=== PATIENT | male | born 1970 | race African-American/Black ===

== ENCOUNTER 2017-01-14 11:09 | Inpatient (IN) | payer OTHER ==
[2017-01-14 12:18] VITALS: BMI 25.7
--- NOTE | 2017-01-14 14:52 | HP ---
CIWA Score - CIWA Score Nausea/Vomitin Muscle Tremors: 3 Anxiety: 3 Agitation: 3 Paroxysmal Sweats: 3 Orientation: 0-Oriented Tacttile Disturbances: 2-Mild Itch/Numbness/Burn Auditory Disturbances: 2-Mild Harshness/Frighten Visual Disturbances: 2-Mild Sensitivity Headache: 2-Mild CIWA-Ar Total Score: 23 Admission ROS BHS - HPI Chief Complaint: i need help to stop drinking alcohol and cocaine Allergies/Adverse Reactions: Allergies Allergy/AdvReac Type Severity Reaction Status Date / Time No Known Allergies Allergy Verified 01/14/17 14:39 History of Present Illness: this 46 years old male with alcohol and cocaine dependence,withdrawal symptom, last detox and rehab [facility] 06/04 hiv since 2001 nicotine dependence schizoaffective disorder longest period of sobriety Exam Limitations: No Limitations - Ebola screening Have you traveled outside of the country in the last 21 days: No Have you had contact with anyone from an Ebola affected area: No Have you been sick,other than usual withdrawal symptoms: No Do you have a fever: No - Review of Systems Constitutional: Chills, Diaphoresis, Loss of Appetite, Malaise, Night Sweats, Changes in sleep, Unintentional Wgt. Loss EENT: reports: Tearing, Nose Congestion Respiratory: reports: No Symptoms reported Cardiac: reports: Palpitations GI: reports: Diarrhea, Nausea, Vomiting, Abdominal cramping : reports: No Symptoms Reported Musculoskeletal: reports: Back Pain, Joint Pain, Muscle Pain, Joint Stiffness Integumentary: reports: Dryness Neuro: reports: Headache, Tremors Endocrine: reports: No Symptoms Reported Hematology: reports: No Symptoms Reported, Other (hiv) Psychiatric: reports: other (schizoaffective disorder) Other Systems: Reviewed and Negative Patient History - Patient Medical History Hx Anemia: No Hx Asthma: No Hx Chronic Obstructive Pulmonary Disease (COPD): No Hx Cancer: No Hx Cardiac Disorders: No Hx Congestive Heart Failure: No Hx Hypertension: No Hx Hypercholesterolemia: No Hx Pacemaker: No HX Cerebrovascular Accident: No Hx Seizures: No Hx Dementia: No Hx Diabetes: No Hx Gastrointestinal Disorders: No Hx Liver Disease: No Hx Genitourinary Disorders: No Hx Sexually Transmitted Disorders: No Hx Renal Disease (ESRD): No Hx Thyroid Disease: No Hx Human Immunodeficiency Virus (HIV): Yes (since 2001) Hx Hepatitis C: No Hx Depression: No Hx Suicide Attempt: No Hx Bipolar Disorder: No Hx Schizophrenia: Yes Other Medical History: no suicidal,no homicidal - Patient Surgical History Past Surgical History: No Hx Neurologic Surgery: No Hx Cataract Extraction: No Hx Cardiac Surgery: No Hx Lung Surgery: No Hx Breast Surgery: No Hx Breast Biopsy: No Hx Abdominal Surgery: No Hx Appendectomy: No Hx Cholecystectomy: No Hx Genitourinary Surgery: No Hx Section: No Hx Orthopedic Surgery: No Hx Hysterectomy: No Anesthesia Reaction: No - PPD History Previous Implant?: Yes Documented Results: Negative w/proof Implanted On Prior [facility] Admission?: Yes Date: 03/05/16 Results: 0 mm PPD to be Administered?: No - Smoking Cessation Smoking history: Current every day smoker Have you smoked in the past 12 months: Yes Aproximately how many cigarettes per day: 20 Cigars Per Day: 0 Hx Chewing Tobacco Use: No Initiated information on smoking cessation: Yes 'Breaking Loose' booklet given: 01/14/17 - Substance & Tx. History Hx Alcohol Use: Yes Hx Substance Use: Yes Substance Use Type: Alcohol, Cocaine Hx Substance Use Treatment: Yes ([facility] in 06/04) - Substances Abused Alcohol Route: Oral Frequency: Daily Amount used: 10 40 OZ BEERS Age of first use: 36 Date of Last Use: 01/13/17 Crack Route: Smoking Frequency: 1-3 times last 30 days Amount used: $10-20 Age of first use: 36 Date of Last Use: 01/12/17 Family Disease History - Family Disease History Family Disease History: Diabetes: Grandparent (GM-), CA: Grandparent, Other: Father (heroin ), Mother (heroin ) Admission Physical Exam S - Vital Signs Vital Signs: Vital Signs - 24 hr 01/14/17 12:16 Temperature 98.8 F Pulse Rate 104 H Respiratory 18 Rate Blood Pressure 122/74 - Physical General Appearance: Yes: Moderate Distress, Tremorous, Irritable, Sweating, Anxious HEENTM: Yes: Hearing grossly Normal, Normal ENT Inspection, [place], Pharynx Normal Respiratory: Yes: Lungs Clear, Normal Breath Sounds, No Respiratory Distress Neck: Yes: Within Normal Limits, Supple, Trachea in good position Breast: Yes: Within Normal Limits Cardiology: Yes: Tachycardia Abdominal: Yes: Within Normal Limits, Normal Bowel Sounds, Non Tender, Flat, Soft Genitourinary: Yes: Within Normal Limits Back: Yes: Muscle Spasm Musculoskeletal: Yes: Back pain, Joint Stiffness, Muscle Pain Extremities: Yes: Tremors Neurological: Yes: real time operator II-XII NML intact, Alert, Motor Strength 5/5 Integumentary: Yes: Dry Lymphatic: Yes: Within Normal Limits - Diagnostic (1) Weight decreased Current Visit: No Status: Active (2) Alcohol dependence with uncomplicated withdrawal Current Visit: No Status: Acute (3) Cocaine dependence, uncomplicated Current Visit: No Status: Acute (4) Human immunodeficiency virus infection Current Visit: No Status: Chronic (5) Nicotine dependence Current Visit: No Status: Chronic Qualifiers: Nicotine product type: cigarettes Substance use status: uncomplicated Qualified Code(s): F17.210 - Nicotine dependence, cigarettes, uncomplicated (6) Paranoid schizophrenia Current Visit: No Status: Chronic (7) Schizophrenia Current Visit: No Status: Chronic (8) Posttraumatic stress disorder Current Visit: No Status: Suspected Cleared for Admission [facility] - Detox or Rehab [facility] Level of Care: Medically Managed Detox Regimen/Protocol: Librium [facility] Breath Alcohol Content Breath Alcohol Content: 0 Urine Drug Screen - Results Drug Screen Negative: No Urine Drug Screen Results: IAIN-Cocaine, TCA-Tricyclic Antidepress
[2017-01-14] MEDS ORDERED: MAGNESIUM CITRATE 300 ML BOTTLE PO PRN (15:19)
[2017-01-14] MEDS ORDERED: MAG HYDROX/AL HYDROX/SIMETH 30 ML UNIT-DOSE CUP PO PRN (15:19)
[2017-01-14] MEDS ORDERED: IBUPROFEN 400 MG TABLET (FP) PO PRN (15:19)
[2017-01-14] MEDS ORDERED: MAGNESIUM HYDROX 2400MG/30ML ORAL SUSPENSION 30 ML CUP PO PRN (15:19)
[2017-01-14] MEDS ORDERED: diphenhydrAMINE HCL 50 MG CAPSULE PO PRN (15:19)
[2017-01-14] MEDS ORDERED: guaiFENesin/D-METHORPHAN HB 10 ML UNIT-DOSE CUPS PO PRN (15:19)
[2017-01-14] MEDS ORDERED: MENTHOL/PHENOL 1 EACH UD MM PRN (15:19)
[2017-01-14] MEDS ORDERED: chlordiazePOXIDE HCL 25 MG CAPSULE PO PRN (15:19)
[2017-01-14] MEDS ORDERED: hydrOXYzine PAMOATE 50 MG CAPSULE (FP) PO PRN (15:19)
[2017-01-14] MEDS ORDERED: P-EPHED 60MG/TRIPROLIDI 2.5MG TABLET PO PRN (15:19)
[2017-01-14] MEDS ORDERED: LOPERAMIDE HCL 2 MG CAPSULE PO PRN (15:19)
[2017-01-14] MEDS ORDERED: ACETAMINOPHEN 325 MG TABLET (FP) PO PRN (15:19)
[2017-01-14] MEDS ORDERED: chlordiazePOXIDE HCL 25 MG CAPSULE PO ONE (16:49)
[2017-01-14] MEDS: chlordiazePOXIDE HCL 25 MG CAPSULE PO SCH ×2 (17:55→22:55)
[2017-01-14] MEDS: NICOTINE POLACRILEX 4 MG GUM BUC PRN (17:56)
[2017-01-14] MEDS: THIAMINE HCL 100 MG TABLET (FP) PO SCH (22:55)
[2017-01-14 23:23] LABS: URINE APPEARANCE CLEAR; URINE BILIRUBIN NEGATIVE (NEGATIVE); URINE BLOOD NEGATIVE (NEGATIVE); URINE COLOR LTYELLOW; URINE GLUCOSE (UA) NEGATIVE (NEGATIVE); URINE KETONE NEGATIVE (NEGATIVE); URINE LEUK ESTERASE NEGATIVE (NEGATIVE); URINE NITRITE NEGATIVE (NEGATIVE); URINE PROTEIN NEGATIVE (NEGATIVE); URINE UROBILINOGEN NEGATIVE E.U./dl (0.2-1.0)
[2017-01-15] MEDS: chlordiazePOXIDE HCL 25 MG CAPSULE PO SCH ×4 (05:50→22:41)
[2017-01-15] MEDS: PRENATAL VITAMINS W/ FOLIC ACID TABLET (FP) PO SCH (10:44)
[2017-01-15] MEDS: NICOTINE POLACRILEX 4 MG GUM BUC PRN ×4 (10:46→20:53)
--- NOTE | 2017-01-15 10:47 | PN ---
S CIWA - CIWA Score Nausea/Vomitin Muscle Tremors: 3 Anxiety: 3 Agitation: 2 Paroxysmal Sweats: 1-Minimal Palms Moist Orientation: 0-Oriented Tacttile Disturbances: 1-Very Mild Itch/Numbness Auditory Disturbances: 1-Very Mild Visual Disturbances: 1-Very Mild Sensitivity Headache: 2-Mild CIWA-Ar Total Score: 17 BHS Progress Note (SOAP) Subjective: ALERT,IRRITABLE,ANXIOUS,INTERRUPTED SLEEP,PAIN IN THE BODY Objective: 01/15/17 10:46 Vital Signs Temperature 98.4 F 01/15/17 10:31 Pulse Rate 85 01/15/17 10:31 Respiratory Rate 16 01/15/17 10:31 Blood Pressure 135/82 01/15/17 10:31 O2 Sat by Pulse Oximetry (%) EKG NSR,NORMAL ECG Laboratory Last Values Urine Color Ltyellow 01/14/17 21:26 Urine Appearance Clear 01/14/17 21:26 Urine pH 5.0 (5.0-8.0) 01/14/17 21:26 Ur Specific [place] 1.011 (1.001-1.035) 01/14/17 21:26 Urine Protein Negative (NEGATIVE) 01/14/17 21:26 Urine Glucose (UA) Negative (NEGATIVE) 01/14/17 21:26 Urine Ketones Negative (NEGATIVE) 01/14/17 21:26 Urine Blood Negative (NEGATIVE) 01/14/17 21:26 Urine Nitrite Negative (NEGATIVE) 01/14/17 21:26 Urine Bilirubin Negative (NEGATIVE) 01/14/17 21:26 Urine Urobilinogen Negative E.U./dl (0.2-1.0) 01/14/17 21:26 Ur Leukocyte Esterase Negative (NEGATIVE) 01/14/17 21:26 LABS PENDING Assessment: 01/15/17 10:47 WITHDRAWAL SYMPTOM Plan: CONTINUE DETOX
[2017-01-15 11:10] LABS: MCH 29.8 pg (25.7-33.7); MCHC 32.5 g/dl (32.0-35.9); MEAN CELL VOLUME 91.7 fl (80-96); MEAN PLT VOLUME 8.9 fl (7.5-11.1); PLATELET COUNT 239 K/MM3 (134-434); RDW 13.4 % (11.9-15.9); WHITE BLOOD COUNT 4.6 K/mm3 (4.0-10.0)
[2017-01-15 11:15] LABS: ALBUMIN 3.6 g/dl (3.4-5.0); ANION GAP 10 (8-16); BILIRUBIN,TOTAL 0.6 mg/dL (0.2-1.0); CALCIUM 8.9 mg/dL (8.5-10.1); CO2 26 mmol/L (21-32); COCKROFT - GAULT 97.47; CREATININE 1.1 mg/dL (0.7-1.3); GLUCOSE,RANDOM 149 mg/dL (74-106); SGOT/AST 43 U/L (15-37); SGPT/ALT 35 U/L (12-78); TOT PROT 7.9 g/dl (6.4-8.2)
[2017-01-15 11:16] LABS: ALK PHOS 87 U/L (45-117)
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
[2017-01-15] MEDS: QUEtiapine FUMARATE 300 MG TABLET PO SCH ×2 (14:08→22:42)
[2017-01-15] MEDS: THIAMINE HCL 100 MG TABLET (FP) PO SCH (22:41)
[2017-01-16] MEDS: chlordiazePOXIDE HCL 25 MG CAPSULE PO SCH ×2 (05:36→10:36)
[2017-01-16] MEDS: NICOTINE POLACRILEX 4 MG GUM BUC PRN ×6 (05:37→21:00)
[2017-01-16] MEDS: QUEtiapine FUMARATE 300 MG TABLET PO SCH ×2 (10:36→22:42)
[2017-01-16] MEDS: PRENATAL VITAMINS W/ FOLIC ACID TABLET (FP) PO SCH (10:36)
--- NOTE | 2017-01-16 12:27 | PN ---
S CIWA - CIWA Score Nausea/Vomitin Muscle Tremors: 3 Anxiety: 3 Agitation: 2 Paroxysmal Sweats: 1-Minimal Palms Moist Orientation: 0-Oriented Tacttile Disturbances: 1-Very Mild Itch/Numbness Auditory Disturbances: 1-Very Mild Visual Disturbances: 1-Very Mild Sensitivity Headache: 2-Mild CIWA-Ar Total Score: 17 BHS Progress Note (SOAP) Subjective: ALERT,IRRITABLE,ANXIOUS,INTERRUPTED SLEEP,TREMOR Objective: 01/16/17 12:26 Vital Signs Temperature 98.1 F 01/16/17 10:11 Pulse Rate 96 H 01/16/17 10:11 Respiratory Rate 18 01/16/17 10:11 Blood Pressure 126/93 01/16/17 10:11 O2 Sat by Pulse Oximetry (%) 01/16/17 12:28 Laboratory Last Values WBC 4.6 K/mm3 (4.0-10.0) D 01/15/17 06:05 RBC 4.37 M/mm3 (4.00-5.60) 01/15/17 06:05 Hgb 13.0 GM/dL (11.7-16.9) 01/15/17 06:05 Hct 40.0 % (35.4-49) 01/15/17 06:05 MCV 91.7 fl (80-96) 01/15/17 06:05 MCHC 32.5 g/dl (32.0-35.9) 01/15/17 06:05 RDW 13.4 % (11.9-15.9) 01/15/17 06:05 Plt Count 239 K/MM3 (134-434) D 01/15/17 06:05 MPV 8.9 fl (7.5-11.1) 01/15/17 06:05 Sodium 139 mmol/L (136-145) 01/15/17 06:05 Potassium 4.1 mmol/L (3.5-5.1) 01/15/17 06:05 Chloride 103 mmol/L (98-107) 01/15/17 06:05 Carbon Dioxide 26 mmol/L (21-32) 01/15/17 06:05 Anion Gap 10 (8-16) 01/15/17 06:05 BUN 11 mg/dL (7-18) 01/15/17 06:05 Creatinine 1.1 mg/dL (0.7-1.3) 01/15/17 06:05 Creat Clearance w eGFR > 60 (>60) 01/15/17 06:05 Random Glucose 149 mg/dL (74-106) H D 01/15/17 06:05 Calcium 8.9 mg/dL (8.5-10.1) 01/15/17 06:05 Total Bilirubin 0.6 mg/dL (0.2-1.0) 01/15/17 06:05 AST 43 U/L (15-37) H D 01/15/17 06:05 ALT 35 U/L (12-78) D 01/15/17 06:05 Alkaline Phosphatase 87 U/L (45-117) 01/15/17 06:05 Total Protein 7.9 g/dl (6.4-8.2) 01/15/17 06:05 Albumin 3.6 g/dl (3.4-5.0) 01/15/17 06:05 Urine Color Ltyellow 01/14/17 21:26 Urine Appearance Clear 01/14/17 21:26 Urine pH 5.0 (5.0-8.0) 01/14/17 21:26 Ur Specific [place] 1.011 (1.001-1.035) 01/14/17 21:26 Urine Protein Negative (NEGATIVE) 01/14/17 21:26 Urine Glucose (UA) Negative (NEGATIVE) 01/14/17 21:26 Urine Ketones Negative (NEGATIVE) 01/14/17 21:26 Urine Blood Negative (NEGATIVE) 01/14/17 21:26 Urine Nitrite Negative (NEGATIVE) 01/14/17 21:26 Urine Bilirubin Negative (NEGATIVE) 01/14/17 21:26 Urine Urobilinogen Negative E.U./dl (0.2-1.0) 01/14/17 21:26 Ur Leukocyte Esterase Negative (NEGATIVE) 01/14/17 21:26 RPR Titer Nonreactive (NONREACTIVE) 01/15/17 06:05 Assessment: 01/16/17 12:29 WITHDRAWAL SYMPTOM Plan: CONTINUE DETOX,INITIAL GLUCOSE IS 149,BGM MONITORING BID
[2017-01-16] MEDS: chlordiazePOXIDE 5 MG CAPSULE PO SCH ×2 (17:41→22:42)
[2017-01-16] MEDS: THIAMINE HCL 100 MG TABLET (FP) PO SCH (22:42)
--- NOTE | 2017-01-17 00:14 | EKG ---
Test Reason : Blood Pressure : / mmHG Vent. Rate : 092 BPM Atrial Rate : 092 BPM P-R Int : 180 ms QRS Dur : 082 ms QT Int : 348 ms P-R-T Axes : 066 015 061 degrees QTc Int : 430 ms NORMAL SINUS RHYTHM NORMAL ECG NO PREVIOUS ECGS AVAILABLE Confirmed by BLAKE ROSEN MD ([id number]) on 01/17/2017 12:14:14 AM Referred By: Confirmed By:BLAKE ROSEN MD
[2017-01-17] MEDS: NICOTINE POLACRILEX 4 MG GUM BUC PRN ×2 (03:57→10:39)
[2017-01-17] MEDS: chlordiazePOXIDE 5 MG CAPSULE PO SCH ×2 (05:50→10:37)
[2017-01-17 10:30] VITALS: BP 123/90; PULSE 99; TEMP 98.2
[2017-01-17] MEDS: PRENATAL VITAMINS W/ FOLIC ACID TABLET (FP) PO SCH (10:37)
[2017-01-17] MEDS: QUEtiapine FUMARATE 300 MG TABLET PO SCH (10:53)
--- NOTE | 2017-01-17 11:34 | PN ---
BHS Progress Note (SOAP) Subjective: interrupted sleep, diarrhea Objective: 01/17/17 11:33 Vital Signs Temperature 98.2 F 01/17/17 10:00 Pulse Rate 99 H 01/17/17 10:00 Respiratory Rate 20 01/17/17 10:00 Blood Pressure 123/90 01/17/17 10:00 O2 Sat by Pulse Oximetry (%) Laboratory Tests 01/14/17 01/15/17 01/15/17 21:26 06:05 06:05 WBC 4.6 D RBC 4.37 Hgb 13.0 Hct 40.0 MCV 91.7 MCHC 32.5 RDW 13.4 Plt Count 239 D MPV 8.9 Sodium 139 Potassium 4.1 Chloride 103 Carbon Dioxide 26 Anion Gap 10 BUN 11 Creatinine 1.1 Creat Clearance w eGFR > 60 POC Glucometer Random Glucose 149 H D Calcium 8.9 Total Bilirubin 0.6 AST 43 H D ALT 35 D Alkaline Phosphatase 87 Total Protein 7.9 Albumin 3.6 Urine Color Ltyellow Urine Appearance Clear Urine pH 5.0 Ur Specific [place] 1.011 Urine Protein Negative Urine Glucose (UA) Negative Urine Ketones Negative Urine Blood Negative Urine Nitrite Negative Urine Bilirubin Negative Urine Urobilinogen Negative Ur Leukocyte Esterase Negative RPR Titer 01/15/17 01/16/17 01/17/17 06:05 16:42 06:15 WBC RBC Hgb Hct MCV MCHC RDW Plt Count MPV Sodium Potassium Chloride Carbon Dioxide Anion Gap BUN Creatinine Creat Clearance w eGFR POC Glucometer 111 129 Random Glucose Calcium Total Bilirubin AST ALT Alkaline Phosphatase Total Protein Albumin Urine Color Urine Appearance Urine pH Ur Specific [place] Urine Protein Urine Glucose (UA) Urine Ketones Urine Blood Urine Nitrite Urine Bilirubin Urine Urobilinogen Ur Leukocyte Esterase RPR Titer Nonreactive pt aox3 in nad ambulating Assessment: 01/17/17 11:33 withdrawal sx;s ' diarrhea Plan: cont. detox increase fluids imodium d/c in am
--- NOTE | 2017-01-17 14:29 | DS ---
[facility] Detox Discharge Summary Admission Date: 01/14/17 Discharge Date: 01/17/17 - History Present History: Alcohol Dependence, Cocaine Dependence - Physical Exam Results Vital Signs: Vital Signs Temperature 98.2 F 01/17/17 10:00 Pulse Rate 99 H 01/17/17 10:00 Respiratory Rate 20 01/17/17 10:00 Blood Pressure 123/90 01/17/17 10:00 O2 Sat by Pulse Oximetry (%) - Treatment Hospital Course: Detox Protocol Followed - Medication Discharge Medications: Ambulatory Orders Quetiapine Fumarate [Seroquel -] 400 mg PO HS #30 tab 05/20/16 Quetiapine Fumarate [Seroquel] 300 mg PO DAILY #30 tablet 05/20/16 Quetiapine Fumarate [Seroquel -] 400 mg PO HS #30 tab 01/15/17 Quetiapine Fumarate [Seroquel] 300 mg PO DAILY #30 tablet 01/15/17 - Diagnosis (1) Alcohol dependence with uncomplicated withdrawal Current Visit: Yes Status: Chronic (2) Insomnia Current Visit: Yes Status: Chronic Qualifiers: Insomnia type: unspecified Qualified Code(s): G47.00 - Insomnia, unspecified (3) Nicotine dependence Current Visit: Yes Status: Chronic Qualifiers: Nicotine product type: cigarettes Substance use status: uncomplicated Qualified Code(s): F17.210 - Nicotine dependence, cigarettes, uncomplicated (4) Human immunodeficiency virus infection Current Visit: Yes Status: Chronic (5) Paranoid schizophrenia Current Visit: Yes Status: Chronic - AMA Did Patient Leave Against Medical Advice: No (but wanted to leave early before scheduled d/c date )
[2017-01-17] MEDS ORDERED: chlordiazePOXIDE HCL 10 MG CAPSULE PO SCH (17:00)
== END 2017-01-17 14:45 | disposition home or self-care (01) | DRG 897 ==
LOC: YASAS 11:09 → Y6N 16:01
PROVIDERS: ADMIT Internal Medicine; ATTEND Internal Medicine Addiction Medicine
PROC: HZ2ZZZZ Detoxification Services for Substance Abuse Treatment (ICD-10-PCS; principal; 2017-01-17)
DX: F10.230 Alcohol dependence with withdrawal, uncomplicated (principal); F14.20 Cocaine dependence, uncomplicated; F20.0 Paranoid schizophrenia; F17.210 Nicotine dependence, cigarettes, uncomplicated; F43.10 Post-traumatic stress disorder, unspecified; G47.00 Insomnia, unspecified; Z21 Asymptomatic human immunodeficiency virus [HIV] infection status; R63.4 Abnormal weight loss; Z68.25 Body mass index [BMI] 25.0-25.9, adult
CPT/HCPCS: 36415; 80053; 81003; 85027; 86593; 93005; 93010

== ENCOUNTER 2017-05-20 16:45 | Inpatient (IN) | payer OTHER ==
[2017-05-20 17:53] VITALS: BMI 25.1
--- NOTE | 2017-05-20 18:21 | HP ---
CIWA Score - CIWA Score Nausea/Vomitin-Mild Nausea/No Vomiting Muscle Tremors: 4-Moderate,w/Arms Extend Anxiety: 4-Mod. Anxious/Guarded Agitation: 3 Paroxysmal Sweats: 1-Minimal Palms Moist Orientation: 1-Uncertain about Date Tacttile Disturbances: 0-None Auditory Disturbances: 0-None Visual Disturbances: 0-None Headache: 1-Very Mild CIWA-Ar Total Score: 15 Admission ROS BHS - HPI Chief Complaint: WITHDRAWAL SX Allergies/Adverse Reactions: Allergies Allergy/AdvReac Type Severity Reaction Status Date / Time No Known Allergies Allergy Verified 01/14/17 14:39 History of Present Illness: 46 YEARS OLD MALE WITH LONG HISTORY OF ALCOHOL NICOTINE DEPENDENCE HAS HIV AND SCHIZOPHRENIA IS ADMITTED TO DETOX Exam Limitations: No Limitations - Ebola screening Have you traveled outside of the country in the last 21 days: No Have you had contact with anyone from an Ebola affected area: No Have you been sick,other than usual withdrawal symptoms: No Do you have a fever: No - Review of Systems Constitutional: Changes in sleep, Weight Stable EENT: reports: No Symptoms Reported Respiratory: reports: No Symptoms reported Cardiac: reports: No Symptoms Reported GI: reports: Nausea, Poor Fluid Intake, Abdominal cramping : reports: No Symptoms Reported Musculoskeletal: reports: No Symptoms Reported Integumentary: reports: No Symptoms Reported Neuro: reports: Tremors Endocrine: reports: No Symptoms Reported Hematology: reports: No Symptoms Reported Psychiatric: reports: No Sypmtoms Reported, Judgement Intact, Depressed Other Systems: Reviewed and Negative Patient History - Patient Medical History Hx Anemia: No Hx Asthma: No Hx Chronic Obstructive Pulmonary Disease (COPD): No Hx Cancer: No Hx Cardiac Disorders: No Hx Congestive Heart Failure: No Hx Hypertension: No Hx Hypercholesterolemia: No Hx Pacemaker: No HX Cerebrovascular Accident: No Hx Seizures: No Hx Dementia: No Hx Diabetes: No Hx Gastrointestinal Disorders: No Hx Liver Disease: No Hx Genitourinary Disorders: No Hx Sexually Transmitted Disorders: No Hx Renal Disease (ESRD): No Hx Thyroid Disease: No Hx Human Immunodeficiency Virus (HIV): Yes (since 2001) Hx Hepatitis C: No Hx Depression: No Hx Suicide Attempt: No Hx Bipolar Disorder: No Hx Schizophrenia: Yes - Patient Surgical History Past Surgical History: No Hx Neurologic Surgery: No Hx Cataract Extraction: No Hx Cardiac Surgery: No Hx Lung Surgery: No Hx Breast Surgery: No Hx Breast Biopsy: No Hx Abdominal Surgery: No Hx Appendectomy: No Hx Cholecystectomy: No Hx Genitourinary Surgery: No Hx Orthopedic Surgery: No - PPD History Previous Implant?: Yes Documented Results: Negative w/proof Implanted On Prior [facility] Admission?: Yes Date: 01/16/17 Results: 0 mm PPD to be Administered?: No - Smoking Cessation Smoking history: Current every day smoker Have you smoked in the past 12 months: Yes Aproximately how many cigarettes per day: 20 Cigars Per Day: 0 Hx Chewing Tobacco Use: No Initiated information on smoking cessation: Yes 'Breaking Loose' booklet given: 05/20/17 - Substance & Tx. History Hx Alcohol Use: Yes Hx Substance Use: Yes Substance Use Type: Alcohol, Cocaine Hx Substance Use Treatment: Yes (01/14[facility]01/17/17 [facility]) - Substances Abused Alcohol Route: Oral Frequency: Daily Amount used: [id number] Age of first use: 36 Date of Last Use: 05/20/17 Family Disease History - Family Disease History Family Disease History: Diabetes: Grandparent (GM-), CA: Grandparent, Other: Father (heroin ), Mother (heroin ) Other Family History: ONLY CHILD Admission Physical Exam BHS - Vital Signs Vital Signs: Vital Signs - 24 hr 05/20/17 17:43 Temperature 98.8 F Pulse Rate 119 H Respiratory 20 Rate Blood Pressure 130/73 - Physical General Appearance: Yes: Nourished, Appropriately Dressed, Mild Distress, Alcohol on Breath, Tremorous, Irritable, Sweating, Anxious HEENTM: Yes: Hearing grossly Normal, Normal ENT Inspection, Normocephalic, Normal Voice Respiratory: Yes: Chest Non-Tender, Lungs Clear, Normal Breath Sounds, No Respiratory Distress, No Accessory Muscle Use Neck: Yes: Supple, Trachea in good position Breast: Yes: Breasts Symetrical Cardiology: Yes: Regular Rhythm, S1, S2, Tachycardia Abdominal: Yes: Non Tender, Soft, Increased Bowel Sounds, Other Back: Yes: Normal Inspection Musculoskeletal: Yes: full range of Motion, Gait Steady Extremities: Yes: Normal Inspection, Normal Range of Motion, Non-Tender, Tremors Neurological: Yes: Alert, Motor Strength 5/5, Normal Response, Depressed Affect Integumentary: Yes: Warm Lymphatic: Yes: Within Normal Limits - Diagnostic (1) Alcohol dependence with uncomplicated withdrawal Current Visit: Yes Status: Acute (2) Human immunodeficiency virus infection Current Visit: Yes Status: Chronic (3) Nicotine dependence Current Visit: Yes Status: Acute Qualifiers: Nicotine product type: cigarettes Substance use status: in withdrawal Qualified Code(s): F17.213 - Nicotine dependence, cigarettes, with withdrawal (4) Schizophrenia Current Visit: Yes Status: Chronic Qualifiers: Schizophrenia type: disorganized schizophrenia Qualified Code(s): F20.1 - Disorganized schizophrenia Cleared for Admission [facility] - Detox or Rehab [facility] Level of Care: Medically Managed Detox Regimen/Protocol: Librium [facility] Breath Alcohol Content Breath Alcohol Content: 0.204 Urine Drug Screen - Results Drug Screen Negative: No Urine Drug Screen Results: IAIN-Cocaine
[2017-05-20] MEDS ORDERED: chlordiazePOXIDE HCL 25 MG CAPSULE PO PRN (18:25)
[2017-05-20] MEDS ORDERED: MAGNESIUM HYDROX 2400MG/30ML ORAL SUSPENSION 30 ML CUP PO PRN (18:25)
[2017-05-20] MEDS ORDERED: MENTHOL/PHENOL 1 EACH UD MM PRN (18:25)
[2017-05-20] MEDS ORDERED: ACETAMINOPHEN 325 MG TABLET (FP) PO PRN (18:25)
[2017-05-20] MEDS ORDERED: guaiFENesin/D-METHORPHAN HB 10 ML UNIT-DOSE CUPS PO PRN (18:25)
[2017-05-20] MEDS ORDERED: hydrOXYzine PAMOATE 50 MG CAPSULE (FP) PO PRN (18:25)
[2017-05-20] MEDS ORDERED: MAG HYDROX/AL HYDROX/SIMETH 30 ML UNIT-DOSE CUP PO PRN (18:25)
[2017-05-20] MEDS ORDERED: diphenhydrAMINE HCL 50 MG CAPSULE PO PRN (18:25)
[2017-05-20] MEDS ORDERED: P-EPHED 60MG/TRIPROLIDI 2.5MG TABLET PO PRN (18:25)
[2017-05-20] MEDS ORDERED: IBUPROFEN 400 MG TABLET (FP) PO PRN (18:25)
[2017-05-20] MEDS ORDERED: MAGNESIUM CITRATE 300 ML BOTTLE PO PRN (18:25)
[2017-05-20] MEDS ORDERED: chlordiazePOXIDE HCL 25 MG CAPSULE PO ONE (19:00)
[2017-05-20 21:33] LABS: PH,URINE 5.5 (5.0-8.0); URINE APPEARANCE CLEAR; URINE BILIRUBIN NEGATIVE (NEGATIVE); URINE BLOOD NEGATIVE (NEGATIVE); URINE COLOR LT. YELLOW; URINE GLUCOSE (UA) NEGATIVE (NEGATIVE); URINE KETONE TRACE (NEGATIVE); URINE LEUK ESTERASE NEGATIVE (NEGATIVE); URINE NITRITE NEGATIVE (NEGATIVE); URINE UROBILINOGEN 0.2 mg/dL (0.2-1.0)
[2017-05-20 21:36] LABS: URINE PROTEIN 1+ (NEGATIVE)
[2017-05-20 21:49] LABS: URINE BACTERIA RARE /hpf (NONE SEEN); URINE HYALINE CAST 3 /lpf; URINE MUCUS RARE; URINE RBC 5 /hpf (0-3); URINE WBC 3 /hpf (3-5)
[2017-05-20] MEDS: THIAMINE HCL 100 MG TABLET (FP) PO SCH (23:11)
[2017-05-20] MEDS: chlordiazePOXIDE HCL 25 MG CAPSULE PO SCH (23:12)
[2017-05-21] MEDS: chlordiazePOXIDE HCL 25 MG CAPSULE PO SCH ×4 (05:59→23:25)
[2017-05-21 10:30] LABS: MCH 29.2 pg (25.7-33.7); MCHC 32.7 g/dl (32.0-35.9); MEAN CELL VOLUME 89.1 fl (80-96); MEAN PLT VOLUME 8.2 fl (7.5-11.1); PLATELET COUNT 247 K/MM3 (134-434); RDW 13.6 % (11.9-15.9); WHITE BLOOD COUNT 8.1 K/mm3 (4.0-10.0)
[2017-05-21] MEDS: PRENATAL VITAMINS W/ FOLIC ACID TABLET (FP) PO SCH (10:43)
[2017-05-21] MEDS: NICOTINE 21 MG/24 HOURS TOPICAL PATCH TD SCH (10:44)
[2017-05-21] MEDS: NICOTINE POLACRILEX 4 MG GUM BC PRN ×2 (10:45→22:28)
[2017-05-21 10:47] LABS: ALBUMIN 3.3 g/dl (3.4-5.0); ANION GAP 9 (8-16); CO2 28 mmol/L (21-32); CREATININE 1.2 mg/dL (0.7-1.3); GLUCOSE,RANDOM 157 mg/dL (74-106); SGOT/AST 65 U/L (15-37); SGPT/ALT 35 U/L (12-78)
[2017-05-21 10:49] LABS: ALK PHOS 82 U/L (45-117); BILIRUBIN,TOTAL 0.6 mg/dL (0.2-1.0); TOT PROT 7.2 g/dl (6.4-8.2)
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
--- NOTE | 2017-05-21 12:52 | EKG ---
Test Reason : Blood Pressure : / mmHG Vent. Rate : 103 BPM Atrial Rate : 103 BPM P-R Int : 184 ms QRS Dur : 090 ms QT Int : 360 ms P-R-T Axes : 066 014 055 degrees QTc Int : 471 ms SINUS TACHYCARDIA POSSIBLE LEFT ATRIAL ENLARGEMENT BORDERLINE ECG WHEN COMPARED WITH ECG OF 14-JAN-2017 16:42, NO SIGNIFICANT CHANGE WAS FOUND REPEAT EKG IF CLINICALLY INDICATED Confirmed by TAVIA AVINA MD ([id number]) on 05/21/2017 12:51:52 PM Referred By: Confirmed By:TAVIA AVINA MD
[2017-05-21] MEDS: QUEtiapine FUMARATE 100 MG TABLET (FP) PO SCH ×2 (13:59→15:41)
[2017-05-21] MEDS ORDERED: QUEtiapine FUMARATE 300 MG TABLET PO SCH ×2 (15:00→22:00)
[2017-05-21] MEDS: QUEtiapine FUMARATE 300 MG TABLET PO SCH (18:15)
--- NOTE | 2017-05-21 19:30 | PN ---
S CIWA - CIWA Score Nausea/Vomitin Muscle Tremors: 2 Anxiety: 4-Mod. Anxious/Guarded Agitation: 1-Slight > Activity Paroxysmal Sweats: 3 Orientation: 0-Oriented Tacttile Disturbances: 3-Moderate Itch/Numb/Burn Auditory Disturbances: 0-None Visual Disturbances: 0-None Headache: 0-None Present CIWA-Ar Total Score: 16 BHS Progress Note (SOAP) Subjective: Nausea, Interrupted Sleep, Body Aches, sweating. Objective: PT. A & O X 3. NO ACUTE DISTRESS. PT. DENIES CHEST PAIN. 05/21/17 19:28 Vital Signs Temperature 98.8 F 05/21/17 17:44 Pulse Rate 102 H 05/21/17 17:44 Respiratory Rate 18 05/21/17 17:44 Blood Pressure 89/56 05/21/17 17:44 O2 Sat by Pulse Oximetry (%) Laboratory Tests 05/20/17 05/21/17 05/21/17 21:20 07:00 07:00 WBC 8.1 D RBC 4.21 Hgb 12.3 Hct 37.5 MCV 89.1 MCH 29.2 MCHC 32.7 RDW 13.6 Plt Count 247 MPV 8.2 Sodium 140 Potassium 3.6 Chloride 103 Carbon Dioxide 28 Anion Gap 9 BUN 17 D Creatinine 1.2 Creat Clearance w eGFR > 60 Random Glucose 157 H Calcium 9.0 Total Bilirubin 0.6 AST 65 H D ALT 35 Alkaline Phosphatase 82 Total Protein 7.2 Albumin 3.3 L Urine Color Lt. yellow Urine Appearance Clear Urine pH 5.5 Ur Specific [place] >= 1.030 H Urine Protein 1+ H Urine Glucose (UA) Negative Urine Ketones Trace H Urine Blood Negative Urine Nitrite Negative Urine Bilirubin Negative Urine Urobilinogen 0.2 Ur Leukocyte Esterase Negative Urine RBC 5 Urine WBC 3 Ur Epithelial Cells Rare Urine Bacteria Rare Hyaline Casts 3 Urine Mucus Rare RPR Titer 05/21/17 07:00 WBC RBC Hgb Hct MCV MCH MCHC RDW Plt Count MPV Sodium Potassium Chloride Carbon Dioxide Anion Gap BUN Creatinine Creat Clearance w eGFR Random Glucose Calcium Total Bilirubin AST ALT Alkaline Phosphatase Total Protein Albumin Urine Color Urine Appearance Urine pH Ur Specific [place] Urine Protein Urine Glucose (UA) Urine Ketones Urine Blood Urine Nitrite Urine Bilirubin Urine Urobilinogen Ur Leukocyte Esterase Urine RBC Urine WBC Ur Epithelial Cells Urine Bacteria Hyaline Casts Urine Mucus RPR Titer Nonreactive LABS NOTED. Assessment: 05/21/17 19:28 WITHDRAWAL SYMPTOMS. Plan: CONTINUE DETOX. BGM ACBK FOR ELEVATED ADMISSION RANDOM GLUCOSE LEVEL. INCREASE PO FLUID INTAKE.
[2017-05-21] MEDS: THIAMINE HCL 100 MG TABLET (FP) PO SCH (22:28)
[2017-05-21] MEDS: QUEtiapine FUMARATE 200 MG TABLET PO SCH (22:28)
[2017-05-22] MEDS: chlordiazePOXIDE HCL 25 MG CAPSULE PO SCH ×3 (05:47→16:46)
[2017-05-22] MEDS: NICOTINE POLACRILEX 4 MG GUM BC PRN ×4 (05:49→22:31)
[2017-05-22] MEDS: PRENATAL VITAMINS W/ FOLIC ACID TABLET (FP) PO SCH (10:29)
[2017-05-22] MEDS: QUEtiapine FUMARATE 300 MG TABLET PO SCH (10:31)
[2017-05-22] MEDS: NICOTINE 21 MG/24 HOURS TOPICAL PATCH TD SCH (10:31)
--- NOTE | 2017-05-22 15:11 | PN ---
[facility] CIWA - CIWA Score Nausea/Vomitin Muscle Tremors: 1-None Visible, but [place] Anxiety: 4-Mod. Anxious/Guarded Agitation: 3 Paroxysmal Sweats: 3 Orientation: 0-Oriented Tacttile Disturbances: 2-Mild Itch/Numbness/Burn Auditory Disturbances: 2-Mild Harshness/Frighten Visual Disturbances: 0-None Headache: 0-None Present CIWA-Ar Total Score: 18 S Progress Note (SOAP) Subjective: Interrupted sleep, Diarrhea, Sweating, Body Aches. Objective: PT. A & O X 3. NO ACUTE DISTRESS. 05/22/17 15:09 Vital Signs Temperature 96.8 F L 05/22/17 14:31 Pulse Rate 119 H 05/22/17 14:31 Respiratory Rate 18 05/22/17 14:31 Blood Pressure 123/84 05/22/17 14:31 O2 Sat by Pulse Oximetry (%) Laboratory Tests 05/20/17 05/21/17 05/21/17 21:20 07:00 07:00 WBC 8.1 D RBC 4.21 Hgb 12.3 Hct 37.5 MCV 89.1 MCH 29.2 MCHC 32.7 RDW 13.6 Plt Count 247 MPV 8.2 Sodium 140 Potassium 3.6 Chloride 103 Carbon Dioxide 28 Anion Gap 9 BUN 17 D Creatinine 1.2 Creat Clearance w eGFR > 60 Random Glucose 157 H Calcium 9.0 Total Bilirubin 0.6 AST 65 H D ALT 35 Alkaline Phosphatase 82 Total Protein 7.2 Albumin 3.3 L Urine Color Lt. yellow Urine Appearance Clear Urine pH 5.5 Ur Specific [place] >= 1.030 H Urine Protein 1+ H Urine Glucose (UA) Negative Urine Ketones Trace H Urine Blood Negative Urine Nitrite Negative Urine Bilirubin Negative Urine Urobilinogen 0.2 Ur Leukocyte Esterase Negative Urine RBC 5 Urine WBC 3 Ur Epithelial Cells Rare Urine Bacteria Rare Hyaline Casts 3 Urine Mucus Rare RPR Titer 05/21/17 07:00 WBC RBC Hgb Hct MCV MCH MCHC RDW Plt Count MPV Sodium Potassium Chloride Carbon Dioxide Anion Gap BUN Creatinine Creat Clearance w eGFR Random Glucose Calcium Total Bilirubin AST ALT Alkaline Phosphatase Total Protein Albumin Urine Color Urine Appearance Urine pH Ur Specific [place] Urine Protein Urine Glucose (UA) Urine Ketones Urine Blood Urine Nitrite Urine Bilirubin Urine Urobilinogen Ur Leukocyte Esterase Urine RBC Urine WBC Ur Epithelial Cells Urine Bacteria Hyaline Casts Urine Mucus RPR Titer Nonreactive LABS NOTED. Assessment: 05/22/17 15:10 WITHDRAWAL SYMPTOMS. Plan: CONTINUE DETOX. REPEAT UA FOR ADMISSION ABNORMAL VALUES.
[2017-05-22] MEDS: LOPERAMIDE HCL 2 MG CAPSULE PO PRN (16:48)
[2017-05-22] MEDS: chlordiazePOXIDE 5 MG CAPSULE PO SCH (22:31)
[2017-05-22] MEDS: QUEtiapine FUMARATE 200 MG TABLET PO SCH (22:31)
[2017-05-22] MEDS: THIAMINE HCL 100 MG TABLET (FP) PO SCH (22:31)
[2017-05-23] MEDS: chlordiazePOXIDE 5 MG CAPSULE PO SCH ×3 (05:38→17:49)
[2017-05-23] MEDS: PRENATAL VITAMINS W/ FOLIC ACID TABLET (FP) PO SCH (10:27)
[2017-05-23] MEDS: QUEtiapine FUMARATE 300 MG TABLET PO SCH (10:27)
[2017-05-23] MEDS: NICOTINE 21 MG/24 HOURS TOPICAL PATCH TD SCH (10:27)
[2017-05-23] MEDS: NICOTINE POLACRILEX 4 MG GUM BC PRN ×5 (10:28→22:33)
--- NOTE | 2017-05-23 16:52 | PN ---
BHS Progress Note (SOAP) Subjective: Fatigue, Stomach cramping, Diarrhea, Anxious, Interrupted Sleep, Body Aches. Objective: PT. A & O X 2 (DISORIENTED ABOUT DAY / DATE). NO ACUTE DISTRESS. 05/23/17 16:50 Vital Signs Temperature 97.4 F L 05/23/17 13:17 Pulse Rate 125 H 05/23/17 13:17 Respiratory Rate 20 05/23/17 13:17 Blood Pressure 123/83 05/23/17 13:17 O2 Sat by Pulse Oximetry (%) Laboratory Tests 05/20/17 05/21/17 05/21/17 21:20 07:00 07:00 WBC 8.1 D RBC 4.21 Hgb 12.3 Hct 37.5 MCV 89.1 MCH 29.2 MCHC 32.7 RDW 13.6 Plt Count 247 MPV 8.2 Sodium 140 Potassium 3.6 Chloride 103 Carbon Dioxide 28 Anion Gap 9 BUN 17 D Creatinine 1.2 Creat Clearance w eGFR > 60 POC Glucometer Random Glucose 157 H Calcium 9.0 Total Bilirubin 0.6 AST 65 H D ALT 35 Alkaline Phosphatase 82 Total Protein 7.2 Albumin 3.3 L Urine Color Lt. yellow Urine Appearance Clear Urine pH 5.5 Ur Specific [place] >= 1.030 H Urine Protein 1+ H Urine Glucose (UA) Negative Urine Ketones Trace H Urine Blood Negative Urine Nitrite Negative Urine Bilirubin Negative Urine Urobilinogen 0.2 Ur Leukocyte Esterase Negative Urine RBC 5 Urine WBC 3 Ur Epithelial Cells Rare Urine Bacteria Rare Hyaline Casts 3 Urine Mucus Rare RPR Titer 05/21/17 05/23/17 07:00 05:37 WBC RBC Hgb Hct MCV MCH MCHC RDW Plt Count MPV Sodium Potassium Chloride Carbon Dioxide Anion Gap BUN Creatinine Creat Clearance w eGFR POC Glucometer 120 Random Glucose Calcium Total Bilirubin AST ALT Alkaline Phosphatase Total Protein Albumin Urine Color Urine Appearance Urine pH Ur Specific [place] Urine Protein Urine Glucose (UA) Urine Ketones Urine Blood Urine Nitrite Urine Bilirubin Urine Urobilinogen Ur Leukocyte Esterase Urine RBC Urine WBC Ur Epithelial Cells Urine Bacteria Hyaline Casts Urine Mucus RPR Titer Nonreactive LABS NOTED. Assessment: 05/23/17 16:51 WITHDRAWAL SYMPTOMS. Plan: CONTINUE DETOX.
[2017-05-23] MEDS: LOPERAMIDE HCL 2 MG CAPSULE PO PRN (17:51)
[2017-05-23] MEDS: chlordiazePOXIDE HCL 10 MG CAPSULE PO SCH (22:30)
[2017-05-23] MEDS: THIAMINE HCL 100 MG TABLET (FP) PO SCH (22:30)
[2017-05-23] MEDS: QUEtiapine FUMARATE 200 MG TABLET PO SCH (22:30)
[2017-05-24] MEDS: NICOTINE POLACRILEX 4 MG GUM BC PRN (05:37)
[2017-05-24] MEDS: chlordiazePOXIDE HCL 10 MG CAPSULE PO SCH ×2 (06:27→10:36)
[2017-05-24 06:29] VITALS: TEMP 98.3
--- NOTE | 2017-05-24 08:43 | DS ---
[facility] Detox Discharge Summary Admission Date: 05/20/17 Discharge Date: 05/24/17 - History Present History: Alcohol Dependence, Cocaine Dependence Additional Comments: DETOX COMPLETED.ALERT O X 3. NAD. PT REMINDED TO FOLLOW UP WITH HIS PMD, DR DIAZ AT [place], [place] FOR MEDICAL MANAGEMENT. A COPY OF HIS LAB RESULTS WHILEHERE GIVE TO PT TO FOLLOWUP WITH REPEAT ELEVATED BLOOD SUGAR RESULTS. Pertinent Past History: HX PTSD SCHIZOPHRENIA - Physical Exam Results Vital Signs: Vital Signs Temperature 98.3 F 05/24/17 06:29 Pulse Rate 111 H 05/24/17 06:29 Respiratory Rate 19 05/24/17 06:29 Blood Pressure 109/80 05/24/17 06:29 O2 Sat by Pulse Oximetry (%) Pertinent Admission Physical Exam Findings: WITHDRAWAL SX Laboratory Last Values WBC 8.1 K/mm3 (4.0-10.0) D 05/21/17 07:00 RBC 4.21 M/mm3 (4.00-5.60) 05/21/17 07:00 Hgb 12.3 GM/dL (11.7-16.9) 05/21/17 07:00 Hct 37.5 % (35.4-49) 05/21/17 07:00 MCV 89.1 fl (80-96) 05/21/17 07:00 MCH 29.2 pg (25.7-33.7) 05/21/17 07:00 MCHC 32.7 g/dl (32.0-35.9) 05/21/17 07:00 RDW 13.6 % (11.9-15.9) 05/21/17 07:00 Plt Count 247 K/MM3 (134-434) 05/21/17 07:00 MPV 8.2 fl (7.5-11.1) 05/21/17 07:00 Sodium 140 mmol/L (136-145) 05/21/17 07:00 Potassium 3.6 mmol/L (3.5-5.1) 05/21/17 07:00 Chloride 103 mmol/L (98-107) 05/21/17 07:00 Carbon Dioxide 28 mmol/L (21-32) 05/21/17 07:00 Anion Gap 9 (8-16) 05/21/17 07:00 BUN 17 mg/dL (7-18) D 05/21/17 07:00 Creatinine 1.2 mg/dL (0.7-1.3) 05/21/17 07:00 Creat Clearance w eGFR > 60 (>60) 05/21/17 07:00 POC Glucometer 120 UNITS (()) 05/23/17 05:37 Random Glucose 157 mg/dL (74-106) H 05/21/17 07:00 Calcium 9.0 mg/dL (8.5-10.1) 05/21/17 07:00 Total Bilirubin 0.6 mg/dL (0.2-1.0) 05/21/17 07:00 AST 65 U/L (15-37) H D 05/21/17 07:00 ALT 35 U/L (12-78) 05/21/17 07:00 Alkaline Phosphatase 82 U/L (45-117) 05/21/17 07:00 Total Protein 7.2 g/dl (6.4-8.2) 05/21/17 07:00 Albumin 3.3 g/dl (3.4-5.0) L 05/21/17 07:00 Urine Color Lt. yellow 05/20/17 21:20 Urine Appearance Clear 05/20/17 21:20 Urine pH 5.5 (5.0-8.0) 05/20/17 21:20 Ur Specific [place] >= 1.030 (1.005-1.025) H 05/20/17 21:20 Urine Protein 1+ (NEGATIVE) H 05/20/17 21:20 Urine Glucose (UA) Negative (NEGATIVE) 05/20/17 21:20 Urine Ketones Trace (NEGATIVE) H 05/20/17 21:20 Urine Blood Negative (NEGATIVE) 05/20/17 21:20 Urine Nitrite Negative (NEGATIVE) 05/20/17 21:20 Urine Bilirubin Negative (NEGATIVE) 05/20/17 21:20 Urine Urobilinogen 0.2 mg/dL (0.2-1.0) 05/20/17 21:20 Ur Leukocyte Esterase Negative (NEGATIVE) 05/20/17 21:20 Urine RBC 5 /hpf (0-3) 05/20/17 21:20 Urine WBC 3 /hpf (3-5) 05/20/17 21:20 Ur Epithelial Cells Rare /hpf (FEW) 05/20/17 21:20 Urine Bacteria Rare /hpf (NONE SEEN) 05/20/17 21:20 Hyaline Casts 3 /lpf 05/20/17 21:20 Urine Mucus Rare 05/20/17 21:20 RPR Titer Nonreactive (NONREACTIVE) 05/21/17 07:00 - Treatment Hospital Course: Detox Protocol Followed, Detoxed Safely, Responded well, Discharged Condition Good, Rehab Referral Accepted Patient has Accepted a Rehab Referral to: [facility] - Medication Discharge Medications: Ambulatory Orders Quetiapine Fumarate [Seroquel -] 400 mg PO HS #30 tab 01/15/17 Quetiapine Fumarate [Seroquel] 300 mg PO DAILY #30 tablet 01/15/17 Quetiapine Fumarate [Seroquel -] 300 mg PO DAILY #30 tab 05/24/17 Quetiapine Fumarate [Seroquel -] 400 mg PO HS #30 tab 05/24/17 - Diagnosis (1) Alcohol dependence with uncomplicated withdrawal Status: Acute (2) Cocaine dependence, uncomplicated Status: Acute (3) Nicotine dependence Status: Acute Qualifiers: Nicotine product type: cigarettes Substance use status: in withdrawal Qualified Code(s): F17.213 - Nicotine dependence, cigarettes, with withdrawal (4) Human immunodeficiency virus infection Status: Chronic (5) Insomnia Status: Acute Qualifiers: Insomnia type: unspecified Qualified Code(s): G47.00 - Insomnia, unspecified (6) Paranoid schizophrenia Status: Chronic - AMA Did Patient Leave Against Medical Advice: No
[2017-05-24 09:16] VITALS: BP 125/88; PULSE 125
[2017-05-24] MEDS: NICOTINE 21 MG/24 HOURS TOPICAL PATCH TD SCH (10:36)
[2017-05-24] MEDS: QUEtiapine FUMARATE 300 MG TABLET PO SCH (10:36)
[2017-05-24] MEDS: PRENATAL VITAMINS W/ FOLIC ACID TABLET (FP) PO SCH (10:36)
--- NOTE | 2017-05-24 11:09 | PN ---
S Progress Note Note: Psychiatry Attending's note : Scripts sent to [facility] [address] [facility] [address] : rejected. Rerouted to [facility] [phone].
== END 2017-05-24 09:30 | disposition home or self-care (01) | DRG 897 ==
LOC: YASAS 16:45 → Y3N 18:55
PROVIDERS: ADMIT Internal Medicine Addiction Medicine; ATTEND Internal Medicine Addiction Medicine
PROC: HZ2ZZZZ Detoxification Services for Substance Abuse Treatment (ICD-10-PCS; principal; 2017-05-20)
DX: F19.230 Other psychoactive substance dependence with withdrawal, uncomplicated (principal); F14.20 Cocaine dependence, uncomplicated; F10.230 Alcohol dependence with withdrawal, uncomplicated; F17.213 Nicotine dependence, cigarettes, with withdrawal; F25.9 Schizoaffective disorder, unspecified; Z21 Asymptomatic human immunodeficiency virus [HIV] infection status; G47.00 Insomnia, unspecified; R00.0 Tachycardia, unspecified
CPT/HCPCS: 36415; 80053; 81003; 81015; 85027; 86593; 93005; 93010

== ENCOUNTER 2019-04-27 09:31 | Inpatient (IN) | payer OTHER ==
[2019-04-27 10:37] VITALS: BMI 27.6
--- NOTE | 2019-04-27 13:05 | HP ---
CIWA Score Nausea/Vomitin-Mild Nausea/No Vomiting Muscle Tremors: 4-Moderate,w/Arms Extend Anxiety: 4-Mod. Anxious/Guarded Agitation: 2 Paroxysmal Sweats: 5 Orientation: 1-Uncertain about Date Tacttile Disturbances: 0-None Auditory Disturbances: 0-None Visual Disturbances: 1-Very Mild Sensitivity Headache: 1-Very Mild (appropriate for alcohol detox) CIWA-Ar Total Score: 19 - Admission Criteria OASAS Guidelines: Admission for Medically Managed Detox: Requires at least one of the followin. CIWA greater than 12 2. Seizures within the past 24 hours 3. Delirium tremens within the past 24 hours 4. Hallucinations within the past 24 hours 5. Acute intervention needed for co occurring medical disorder 6. Acute intervention needed for co occurring psychiatric disorder 7. Severe withdrawal that cannot be handled at a lower level of care (continued vomiting, continued diarrhea, abnormal vital signs) requiring intravenous medication and/or fluids 8. Admission ROS [facility] - [facility] Chief Complaint: " I want to stop drinking" Allergies/Adverse Reactions: Allergies Allergy/AdvReac Type Severity Reaction Status Date / Time No Known Allergies Allergy Verified 04/27/19 10:31 History of Present Illness: 48 year old black male with history of alcohol dependence, cocaine use and some marijuana. He is using 10 24 oz beers per day, last drank yesterday morning. He has not had blackout from binging. He denies seizures from withdrawals. He was last admitted in 07/2017 at [facility] and completed detox. Patient was abstinent for almost two years. He relapsed in 2018. Patient is using cocaine once a month: $10/ episode. PsychHx: Paranoid Schizophrenia and PSTD. On seroquel 400mg BID. Attempted suicide in 1994 by pill overdose. Currently not depressed and no suicidal ideation or plans PMHx: :Significant for HIV Disease but not on any regimen at this time. Exam Limitations: No Limitations - Ebola screening Have you traveled outside of the country in the last 21 days: No Have you had contact with anyone from an Ebola affected area: No Have you been sick,other than usual withdrawal symptoms: No Do you have a fever: No - Review of Systems Constitutional: Chills EENT: reports: No Symptoms Reported Respiratory: reports: No Symptoms reported Cardiac: reports: No Symptoms Reported GI: reports: Nausea, Indigestion, Abdominal cramping : reports: No Symptoms Reported Musculoskeletal: reports: No Symptoms Reported, Muscle Pain Integumentary: reports: No Symptoms Reported Neuro: reports: No Symptoms reported Endocrine: reports: No Symptoms Reported Hematology: reports: No Symptoms Reported Psychiatric: reports: Judgement Intact, Mood/Affect Appropiate, Orientated x3 Other Systems: Reviewed and Negative Patient History - Patient Medical History Hx Anemia: No Hx Asthma: No Hx Chronic Obstructive Pulmonary Disease (COPD): No Hx Cancer: No Hx Cardiac Disorders: No Hx Congestive Heart Failure: No Hx Hypertension: No Hx Hypercholesterolemia: No Hx Pacemaker: No HX Cerebrovascular Accident: No Hx Seizures: No Hx Dementia: No Hx Diabetes: No (sugar goes up when drinking) Hx Gastrointestinal Disorders: No Hx Liver Disease: No Hx Genitourinary Disorders: No Hx Sexually Transmitted Disorders: No Hx Renal Disease (ESRD): No Hx Thyroid Disease: No Hx Human Immunodeficiency Virus (HIV): Yes (since 2001 (no meds, t cells in 300s )) Hx Hepatitis C: No Hx Depression: No Hx Suicide Attempt: Yes (1994 - took bunch of pills) Hx Bipolar Disorder: No Hx Schizophrenia: Yes (on meds, last hospitalized 2 years) - Patient Surgical History Past Surgical History: No Hx Neurologic Surgery: No Hx Cataract Extraction: No Hx Cardiac Surgery: No Hx Lung Surgery: No Hx Breast Surgery: No Hx Breast Biopsy: No Hx Abdominal Surgery: No Hx Appendectomy: No Hx Cholecystectomy: No Hx Genitourinary Surgery: No Hx Section: No Hx Orthopedic Surgery: No Hx Hysterectomy: No Anesthesia Reaction: No - PPD History Previous Implant?: Yes Documented Results: Negative w/o proof Implanted On Prior R Admission?: Yes Date: 01/16/17 Results: 0 mm PPD to be Administered?: No - Reproductive History Patient is a Female of Child Bearing Age (11 -55 yrs old): No - Smoking Cessation Smoking history: Current every day smoker Have you smoked in the past 12 months: Yes Aproximately how many cigarettes per day: 20 Cigars Per Day: 0 Hx Chewing Tobacco Use: No Initiated information on smoking cessation: Yes 'Breaking Loose' booklet given: 04/27/19 - Substance & Tx. History Hx Alcohol Use: Yes (10 beers per day) Hx Substance Use: Yes Substance Use Type: Cocaine, Marijuana Hx Substance Use Treatment: Yes (admissions in the past see history) - Substances abused Alcohol Substance route: Oral Frequency: Daily Amount used: (10) 24oz cans of beer Age of first use: 37 Date of last use: 04/27/19 Cocaine Substance route: Injection Frequency: 1-3 times last 30 days Amount used: $10 Age of first use: 37 Date of last use: 04/23/19 Family Disease History - Family Disease History Family Disease History: Diabetes: Grandparent (GM-), CA: Grandparent, Other: Father (heroin, AIDS, ), Mother (heroin, AIDS ), Sister (one - living), Son (one - age 32 -healthy) Admission Physical Exam [facility] - Vital Signs Vital Signs: Vital Signs - 24 hr 04/27/19 04/27/19 10:33 10:59 Temperature 99.2 F 99.2 F Pulse Rate 112 H 112 H Respiratory 20 20 Rate Blood Pressure 121/87 121/87 - Physical HEENTM: Yes: EOMI, Hearing grossly Normal, Normocephalic, [place], Pharynx Normal, Tm's normal Respiratory: Yes: Chest Non-Tender, Lungs Clear, Normal Breath Sounds, No Respiratory Distress, No Accessory Muscle Use Neck: Yes: No masses,lesions,Nodules Breast: Yes: Within Normal Limits Cardiology: Yes: Regular Rhythm, Regular Rate, S1, S2, Tachycardia Abdominal: Yes: Normal Bowel Sounds, Soft, Increased Bowel Sounds, Protuberent Genitourinary: Yes: Within Normal Limits Back: Yes: Normal Inspection Musculoskeletal: Yes: full range of Motion, Gait Steady, Pelvis Stable Extremities: Yes: Normal Capillary Refill, Normal Inspection, Normal Range of Motion, Non-Tender Neurological: Yes: edger machine setter II-XII NML intact, Fully Oriented, Alert, Motor Strength 5/5, Normal Mood/Affect, Normal Response Integumentary: Yes: Normal Color, Warm Lymphatic: Yes: Within Normal Limits - Diagnostic (1) Alcohol dependence with uncomplicated withdrawal Current Visit: Yes Status: Acute (2) Nicotine dependence Current Visit: Yes Status: Acute Qualifiers: (3) Human immunodeficiency virus infection Current Visit: Yes Status: Chronic (4) Paranoid schizophrenia Current Visit: Yes Status: Chronic (5) Posttraumatic stress disorder Current Visit: Yes Status: Chronic Cleared for Admission [facility] - Detox or Rehab [facility] Level of Care: Medically Managed Screened but not Admitted - Documentation of Visit Screened but not Admitted: No Breathalyzer - Breathalyzer Breathalyzer: 0 (only drank one beer very early this am) Vital Signs - Vital Signs Vital signs refused: No Temperature: 99 F (2) Temperature source: Oral Pulse Rate: 112 Respiratory Rate: 20 Blood Pressure: 121/87 BP Location: Left Arm Blood Pressure position: Sitting - Height Height: 5 ft 11 in - Weight Weight: 198 lb Weight measurement method: Standing scale - BMI Body Mass Index (BMI): 27.6 - Bowel Function Bowel Movement: No POC Urine test - Test device test lot number: not applicable Urine Drug Screen - Test Device Lot number: [id number] Expiration date: 01/16/21 - Control Is test valid?: Yes - Results Drug screen NEGATIVE: No Urine drug screen results: THC-Marijuana, IAIN-Cocaine Inpatient Rehab Admission - Rehab Decision to Admit Inpatient rehab admission?: No
[2019-04-27] MEDS ORDERED: ACETAMINOPHEN 325 MG TABLET (FP) PO PRN ×2 (13:23)
[2019-04-27] MEDS ORDERED: hydrOXYzine HCL 25 MG TABLET (FP) PO PRN (13:23)
[2019-04-27] MEDS ORDERED: MENTHOL/PHENOL 1 EACH UD MM PRN (13:23)
[2019-04-27] MEDS ORDERED: IBUPROFEN 400 MG TABLET (FP) PO PRN (13:23)
[2019-04-27] MEDS ORDERED: chlordiazePOXIDE HCL 25 MG CAPSULE PO PRN (13:23)
[2019-04-27] MEDS ORDERED: METHOCARBAMOL 500 MG TABLET PO PRN (13:23)
[2019-04-27] MEDS ORDERED: MAGNESIUM CITRATE 300 ML BOTTLE PO PRN (13:23)
[2019-04-27] MEDS ORDERED: BISMUTH SUBSALICYLATE 262 MG/15 ML BTL PO PRN (13:23)
[2019-04-27] MEDS ORDERED: MAG HYDROX/AL HYDROX/SIMETH 30 ML UNIT-DOSE CUP PO PRN (13:23)
[2019-04-27] MEDS ORDERED: MELATONIN 5 MG TABLETS PO PRN (13:23)
[2019-04-27] MEDS ORDERED: MAGNESIUM HYDROX 2400MG/30ML ORAL SUSPENSION 30 ML CUP PO PRN (13:23)
[2019-04-27] MEDS ORDERED: LOPERAMIDE HCL 2 MG CAPSULE PO ONE ×2 (14:30→14:45)
[2019-04-27] MEDS: NICOTINE POLACRILEX 4 MG GUM BUC PRN ×3 (15:14→23:15)
[2019-04-27 16:46] LABS: HEMATOCRIT 42.5 % (35.4-49); HEMOGLOBIN 14.1 GM/dL (11.7-16.9); MCH 30.8 pg (25.7-33.7); MCHC 33.3 g/dl (32.0-35.9); MEAN CELL VOLUME 92.5 fl (80-96); MEAN PLT VOLUME 9.7 fl (7.5-11.1); PLATELET COUNT 232 K/MM3 (134-434); RBC 4.59 M/mm3 (4.00-5.60); RDW 12.4 % (11.9-15.9); WHITE BLOOD COUNT 4.6 K/mm3 (4.0-10.0)
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
[2019-04-27 17:12] LABS: ALBUMIN 3.7 g/dl (3.4-5.0); BILIRUBIN,TOTAL 0.4 mg/dL (0.2-1); BLOOD UREA NITROGEN 8.9 mg/dL (7-18); CREATININE 1.4 mg/dL (0.55-1.3); POTASSIUM 3.5 mmol/L (3.5-5.1); TOT PROT 8.2 g/dl (6.4-8.2)
[2019-04-27] MEDS: chlordiazePOXIDE HCL 25 MG CAPSULE PO SCH ×2 (17:20→23:14)
[2019-04-27] MEDS: QUEtiapine FUMARATE 400 MG TABLET PO SCH (23:14)
[2019-04-27] MEDS: THIAMINE HCL 100 MG TABLET (FP) PO SCH (23:14)
[2019-04-28] MEDS: chlordiazePOXIDE HCL 25 MG CAPSULE PO SCH ×3 (06:02→18:00)
[2019-04-28] MEDS: NICOTINE POLACRILEX 4 MG GUM BUC PRN ×4 (06:05→23:21)
[2019-04-28] MEDS ORDERED: PRENATAL VITAMINS W/ FOLIC ACID TABLET (FP) PO SCH (10:00)
[2019-04-28] MEDS: QUEtiapine FUMARATE 400 MG TABLET PO SCH ×2 (11:01→23:20)
[2019-04-28] MEDS: LOPERAMIDE HCL 2 MG CAPSULE PO PRN (12:28)
--- NOTE | 2019-04-28 12:56 | PN ---
S CIWA - CIWA Score Nausea/Vomitin-No Nausea/No Vomiting Muscle Tremors: 4-Moderate,w/Arms Extend Anxiety: 3 Agitation: 3 Paroxysmal Sweats: 2 Orientation: 0-Oriented Tacttile Disturbances: 0-None Auditory Disturbances: 0-None Visual Disturbances: 0-None Headache: 0-None Present CIWA-Ar Total Score: 12 BHS Progress Note (SOAP) Subjective: agitation sweats irritable anxiety Objective: 04/28/19 12:55 Vital Signs Temperature 98.1 F 04/28/19 09:27 Pulse Rate 104 H 04/28/19 09:27 Respiratory Rate 18 04/28/19 09:27 Blood Pressure 134/49 L 04/28/19 09:27 O2 Sat by Pulse Oximetry (%) Laboratory Tests 04/27/19 04/27/19 04/27/19 13:15 13:15 13:15 WBC 4.6 RBC 4.59 Hgb 14.1 Hct 42.5 D MCV 92.5 MCH 30.8 MCHC 33.3 RDW 12.4 Plt Count 232 MPV 9.7 D Sodium 138 Potassium 3.5 Chloride 105 Carbon Dioxide 24 Anion Gap 8 BUN 8.9 Creatinine 1.4 H Est GFR (CKD-EPI)AfAm 67.42 Est GFR (CKD-EPI)NonAf 58.17 Random Glucose 168 H Calcium 9.0 Total Bilirubin 0.4 AST 42 H ALT 42 Alkaline Phosphatase 90 Total Protein 8.2 Albumin 3.7 RPR Titer Nonreactive labs noted aaox3 ambulating no acute distress Assessment: 04/28/19 12:55 withdrawal sx Plan: continue detox increase fluids
[2019-04-28 20:46] VITALS: TEMP 97.9
[2019-04-28] MEDS: THIAMINE HCL 100 MG TABLET (FP) PO SCH (23:20)
[2019-04-29] MEDS: chlordiazePOXIDE HCL 25 MG CAPSULE PO SCH (00:22)
[2019-04-29] MEDS ORDERED: chlordiazePOXIDE HCL 25 MG CAPSULE PO SCH (05:00)
[2019-04-29] MEDS: LOPERAMIDE HCL 2 MG CAPSULE PO PRN (05:52)
[2019-04-29 06:45] VITALS: BP 138/91; PULSE 86
--- NOTE | 2019-04-29 14:57 | DS ---
[facility] Detox Discharge Summary Admission Date: 04/27/19 Discharge Date: 04/29/19 - History Present History: Alcohol Dependence, Cannabis Dependence, Cocaine Dependence Additional Comments: Pt demands to leave stating he has to work tomorrow. Patient aware he is not ready for discharge and demanded to leave despite encouragement to complete detox. Pt instructed to call 911 CODI if feeling sick or withdrawal symptoms and to see his PCP within 3 days in which he verbalized understanding. Pt left AMA in stable condition. Pertinent Past History: HIV Nicotine dependence Paranoid schizophrenia PTSD - Physical Exam Results Vital Signs: Vital Signs Temperature 97.9 F 04/29/19 06:00 Pulse Rate 86 04/29/19 06:00 Respiratory Rate 18 04/29/19 06:00 Blood Pressure 138/91 04/29/19 06:00 O2 Sat by Pulse Oximetry (%) Elevated b/p most likely r/t withdrawal or anxiety Pertinent Admission Physical Exam Findings: Withdrawal sxs Laboratory Tests 04/27/19 04/27/19 04/27/19 13:15 13:15 13:15 WBC 4.6 RBC 4.59 Hgb 14.1 Hct 42.5 D MCV 92.5 MCH 30.8 MCHC 33.3 RDW 12.4 Plt Count 232 MPV 9.7 D Sodium 138 Potassium 3.5 Chloride 105 Carbon Dioxide 24 Anion Gap 8 BUN 8.9 Creatinine 1.4 H Est GFR (CKD-EPI)AfAm 67.42 Est GFR (CKD-EPI)NonAf 58.17 Random Glucose 168 H Calcium 9.0 Total Bilirubin 0.4 AST 42 H ALT 42 Alkaline Phosphatase 90 Total Protein 8.2 Albumin 3.7 RPR Titer Nonreactive Labs reviewed: KARIE and hyperglycemia noted (instructed to follow up with PCP within 3 days and for further evaluation of abnormal lab results). Encouraged PO water hydration. - Medication Discharge Medications: Ambulatory Orders Quetiapine Fumarate [Seroquel -] 400 mg PO BID 04/27/19 - Diagnosis (1) Hyperglycemia Status: Acute (2) KARIE (acute kidney injury) Status: Acute (3) Elevated blood-pressure reading, without diagnosis of hypertension Status: Acute (4) Cannabis use disorder, mild, abuse Status: Acute (5) Alcohol dependence with uncomplicated withdrawal Status: Acute (6) Cocaine dependence, uncomplicated Status: Chronic (7) Human immunodeficiency virus infection Status: Chronic (8) Paranoid schizophrenia Status: Chronic (9) Posttraumatic stress disorder Status: Chronic - AMA Did Patient Leave Against Medical Advice: Yes (Instructed to call 911 CODI if sick/withdrawal sxs)
[2019-04-30] MEDS ORDERED: chlordiazePOXIDE HCL 10 MG CAPSULE PO PRN
[2019-04-30] MEDS ORDERED: chlordiazePOXIDE HCL 10 MG CAPSULE PO SCH (05:00)
[2019-05-01] MEDS ORDERED: chlordiazePOXIDE HCL 10 MG CAPSULE PO SCH (05:00)
[2019-05-02] MEDS ORDERED: chlordiazePOXIDE HCL 10 MG CAPSULE PO ONE (05:00)
== END 2019-04-29 09:45 | disposition left against medical advice (07) | DRG 894 ==
LOC: YASAS 09:31 → Y6N 13:54
PROVIDERS: ADMIT Surgery; ATTEND Surgery
PROC: HZ2ZZZZ Detoxification Services for Substance Abuse Treatment (ICD-10-PCS; principal; 2019-04-27)
DX: F10.230 Alcohol dependence with withdrawal, uncomplicated (principal); F14.20 Cocaine dependence, uncomplicated; F20.0 Paranoid schizophrenia; N17.9 Acute kidney failure, unspecified; F17.210 Nicotine dependence, cigarettes, uncomplicated; F12.20 Cannabis dependence, uncomplicated; F43.10 Post-traumatic stress disorder, unspecified; R73.9 Hyperglycemia, unspecified; R03.0 Elevated blood-pressure reading, without diagnosis of hypertension; Z21 Asymptomatic human immunodeficiency virus [HIV] infection status; R00.0 Tachycardia, unspecified; Z91.5 Personal history of self-harm
CPT/HCPCS: 36415; 80053; 85027; 86480; 86593

== ENCOUNTER 2019-08-21 08:32 | Inpatient (IN) | payer OTHER ==
[2019-08-21 08:55] VITALS: BMI 27.1
--- NOTE | 2019-08-21 09:39 | HP ---
CIWA Score Nausea/Vomitin Muscle Tremors: 4-Moderate,w/Arms Extend Anxiety: 4-Mod. Anxious/Guarded Agitation: 1-Slight > Activity Paroxysmal Sweats: 2 Orientation: 0-Oriented Tacttile Disturbances: 0-None Auditory Disturbances: 0-None Visual Disturbances: 0-None Headache: 0-None Present CIWA-Ar Total Score: 13 - Admission Criteria OASAS Guidelines: Admission for Medically Managed Detox: Requires at least one of the followin. CIWA greater than 12 2. Seizures within the past 24 hours 3. Delirium tremens within the past 24 hours 4. Hallucinations within the past 24 hours 5. Acute intervention needed for co occurring medical disorder 6. Acute intervention needed for co occurring psychiatric disorder 7. Severe withdrawal that cannot be handled at a lower level of care (continued vomiting, continued diarrhea, abnormal vital signs) requiring intravenous medication and/or fluids 8. Admitting History and Physical - Smoking History Smoking history: Current every day smoker Have you smoked in the past 12 months: Yes Aproximately how many cigarettes per day: 20 - Alcohol/Substance Use Hx Alcohol Use: Yes (10 beers per day) Admission [facility] Chief Complaint: " I want to change my life " Allergies/Adverse Reactions: Allergies Allergy/AdvReac Type Severity Reaction Status Date / Time No Known Allergies Allergy Verified 08/21/19 08:46 History of Present Illness: This report was requested by: Liz Daly | Reference #: [id number] Others' Prescriptions Patient Name: Fuentes Oconnor Date: 1970 Address: [address] [place] [id number] Sex: Male Rx Written Rx Dispensed Drug Quantity Days Supply Prescriber Name 08/08/2019 08/08/2019 clonazepam 0.5 mg tablet 60 30 Michelle Shannon 07/12/2019 07/12/2019 clonazepam 0.5 mg tablet 30 15 Michelle Shannon Patient Name: Fuentes Oconnor Date: 1970 Address: [address] [place] [address] Sex: Male Rx Written Rx Dispensed Drug Quantity Days Supply Prescriber Name 11/28/2018 12/04/2018 clonazepam 0.5 mg tablet 14 7 Yogi Shannon pt here requesting detox from etoh use , claims 10x 24 oz /day , reports tremors if not drinking , denies seizures, blackouts , latest use yesterday pmhx :2001 dx HIV on HAART [facility] pshx :hemorrhoids , colonic polyps psych : paranoid SAD , PTSD , denies SI / HI Exam Limitations: No Limitations - Ebola screening Have you traveled outside of the country in the last 21 days: No (N) Have you had contact with anyone from an Ebola affected area: No Do you have a fever: No - Review of Systems Constitutional: No Symptoms Reported EENT: reports: No Symptoms Reported Respiratory: reports: No Symptoms reported Cardiac: reports: No Symptoms Reported GI: reports: Diarrhea, Nausea : reports: No Symptoms Reported Musculoskeletal: reports: No Symptoms Reported Integumentary: reports: No Symptoms Reported Neuro: reports: Tremors Endocrine: reports: No Symptoms Reported Psychiatric: reports: Orientated x3, Agitated Patient History - Patient Medical History Hx Anemia: No Hx Asthma: No Hx Chronic Obstructive Pulmonary Disease (COPD): No Hx Cancer: No Hx Cardiac Disorders: No Hx Congestive Heart Failure: No Hx Hypertension: No Hx Hypercholesterolemia: No Hx Pacemaker: No HX Cerebrovascular Accident: No Hx Seizures: No Hx Dementia: No Hx Diabetes: No Hx Gastrointestinal Disorders: No Hx Liver Disease: No Hx Genitourinary Disorders: No Hx Sexually Transmitted Disorders: No Hx Renal Disease (ESRD): No Hx Thyroid Disease: No Hx Human Immunodeficiency Virus (HIV): Yes (since 2001 ) Hx Hepatitis C: No Hx Depression: Yes Hx Suicide Attempt: Yes (Tried to overdose in 1994.) Hx Bipolar Disorder: No Hx Schizophrenia: Yes - Patient Surgical History Past Surgical History: No Hx Neurologic Surgery: No Hx Cataract Extraction: No Hx Cardiac Surgery: No Hx Lung Surgery: No Hx Breast Surgery: No Hx Breast Biopsy: No Hx Abdominal Surgery: No Hx Appendectomy: No Hx Cholecystectomy: No Hx Genitourinary Surgery: No Hx Section: No Hx Orthopedic Surgery: No Hx Hysterectomy: No Other Surgical History: polypectomy ( colon ) , hemorrhoidectomy Anesthesia Reaction: No - PPD History Date: 01/16/17 Results: 0 mm - Smoking Cessation Smoking history: Current every day smoker Have you smoked in the past 12 months: Yes Aproximately how many cigarettes per day: 20 Cigars Per Day: 0 Hx Chewing Tobacco Use: No Initiated information on smoking cessation: Yes 'Breaking Loose' booklet given: 08/21/19 - Substances abused Alcohol Substance route: Oral Frequency: Daily Amount used: (10) 24oz cans of beer Age of first use: 37 Date of last use: 04/27/19 Cocaine Substance route: Inhalation Frequency: 1-3 times last 30 days Amount used: $10 Age of first use: 36 Date of last use: 08/16/19 Other Substance route: Oral Frequency: Daily Amount used: (10) 24oz cans of beer Age of first use: 37 Date of last use: 08/20/19 Admission Physical Exam S - Vital Signs Vital Signs: Vital Signs - 24 hr 08/21/19 08:46 Temperature 99.9 F H Pulse Rate 108 H Respiratory 20 Rate Blood Pressure 124/83 - Physical General Appearance: Yes: Mild Distress, Tremorous, Anxious HEENTM: Yes: EOMI, Hearing grossly Normal, Normocephalic, Normal Voice, Other ( upper dentures, lower missing teeth) Respiratory: Yes: Chest Non-Tender, Lungs Clear, Normal Breath Sounds, No Respiratory Distress, No Accessory Muscle Use Neck: Yes: No masses,lesions,Nodules, Trachea in good position Cardiology: Yes: Regular Rhythm, Regular Rate, S1, S2, Tachycardia Abdominal: Yes: Non Tender, Soft, Protuberent Musculoskeletal: Yes: Gait Steady Extremities: Yes: Normal Range of Motion, Non-Tender, Tremors Neurological: Yes: Fully Oriented, Alert, Motor Strength 5/5, Normal Mood/Affect Integumentary: Yes: Warm - Diagnostic (1) Alcohol dependence with uncomplicated withdrawal Current Visit: Yes Status: Chronic (2) Nicotine dependence Current Visit: Yes Status: Chronic Qualifiers: Nicotine product type: cigarettes (3) Cocaine dependence, uncomplicated Current Visit: Yes Status: Chronic Breathalyzer - Breathalyzer Breathalyzer: 0 POC Urine test - Test device test lot number: not applicable Urine Drug Screen - Test Device Lot number: [id number] Expiration date: 01/16/21 - Control Is test valid?: Yes - Results Drug screen NEGATIVE: No Urine drug screen results: THC-Marijuana, IAIN-Cocaine Inpatient Rehab Admission - Rehab Decision to Admit Inpatient rehab admission?: No
[2019-08-21] MEDS ORDERED: MELATONIN 5 MG TABLETS PO PRN (10:00)
[2019-08-21] MEDS ORDERED: MENTHOL/PHENOL 1 EACH UD MM PRN (10:00)
[2019-08-21] MEDS ORDERED: hydrOXYzine PAMOATE 25 MG CAPSULE (FP) PO PRN (10:00)
[2019-08-21] MEDS ORDERED: MAGNESIUM HYDROX 2400MG/30ML ORAL SUSPENSION 30 ML CUP PO PRN (10:00)
[2019-08-21] MEDS ORDERED: MAG HYDROX/AL HYDROX/SIMETH 30 ML UNIT-DOSE CUP PO PRN (10:00)
[2019-08-21] MEDS ORDERED: IBUPROFEN 400 MG TABLET (FP) PO PRN (10:00)
[2019-08-21] MEDS ORDERED: MAGNESIUM CITRATE 300 ML BOTTLE PO PRN (10:00)
[2019-08-21] MEDS ORDERED: ACETAMINOPHEN 325 MG TABLET (FP) PO PRN ×2 (10:00)
[2019-08-21] MEDS ORDERED: diazePAM 5 MG TABLET PO PRN (10:00)
[2019-08-21] MEDS ORDERED: diazePAM 5 MG TABLET PO ONE (10:00)
[2019-08-21] MEDS ORDERED: BISMUTH SUBSALICYLATE 524 MG/30 ML UD PO PRN (10:00)
[2019-08-21] MEDS: PRENATAL VITAMINS W/ FOLIC ACID TABLET (FP) PO SCH (11:01)
[2019-08-21] MEDS: NICOTINE POLACRILEX 4 MG GUM BUC PRN ×4 (11:02→21:55)
[2019-08-21] MEDS: diazePAM 5 MG TABLET PO SCH ×2 (14:14→21:17)
[2019-08-21 15:26] LABS: HEMOGLOBIN 13.7 GM/dL (11.7-16.9); MCH 29.9 pg (25.7-33.7); MCHC 32.6 g/dl (32.0-35.9); MEAN CELL VOLUME 91.9 fl (80-96); MEAN PLT VOLUME 8.6 fl (7.5-11.1); PLATELET COUNT 237 K/MM3 (134-434); RBC 4.58 M/mm3 (4.00-5.60); WHITE BLOOD COUNT 4.2 K/mm3 (4.0-10.0)
[2019-08-21 15:41] LABS: BILIRUBIN,TOTAL 0.2 mg/dL (0.2-1); BLOOD UREA NITROGEN 17.5 mg/dL (7-18); CREATININE 1.3 mg/dL (0.55-1.3); POTASSIUM 4.5 mmol/L (3.5-5.1); TOT PROT 8.9 g/dl (6.4-8.2)
[2019-08-21] MEDS: THIAMINE HCL 100 MG TABLET (FP) PO SCH (21:17)
[2019-08-22] MEDS: NICOTINE POLACRILEX 4 MG GUM BUC PRN ×5 (04:09→19:36)
[2019-08-22] MEDS: diazePAM 5 MG TABLET PO SCH ×3 (05:49→21:08)
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
[2019-08-22] MEDS ORDERED: LOPERAMIDE HCL 2 MG CAPSULE PO PRN (09:51)
--- NOTE | 2019-08-22 09:55 | PN ---
S CIWA - CIWA Score Nausea/Vomitin Muscle Tremors: 2 Anxiety: 2 Agitation: 2 Paroxysmal Sweats: No Perspiration Orientation: 0-Oriented Tacttile Disturbances: 1-Very Mild Itch/Numbness Auditory Disturbances: 0-None Visual Disturbances: 0-None Headache: 2-Mild CIWA-Ar Total Score: 12 S Progress Note (SOAP) Subjective: ALERT,IRRITABLE,ANXIOUS,INTERRUPTED SLEEP,DIARRHEA Objective: 08/22/19 09:54 Vital Signs Temperature 97.8 F 08/22/19 09:17 Pulse Rate 116 H 08/22/19 09:17 Respiratory Rate 18 08/22/19 09:17 Blood Pressure 128/82 08/22/19 09:17 O2 Sat by Pulse Oximetry (%) Laboratory Last Values WBC 4.2 K/mm3 (4.0-10.0) 08/21/19 10:30 RBC 4.58 M/mm3 (4.00-5.60) 08/21/19 10:30 Hgb 13.7 GM/dL (11.7-16.9) 08/21/19 10:30 Hct 42.0 % (35.4-49) 08/21/19 10:30 MCV 91.9 fl (80-96) 08/21/19 10:30 MCH 29.9 pg (25.7-33.7) 08/21/19 10:30 MCHC 32.6 g/dl (32.0-35.9) 08/21/19 10:30 RDW 13.0 % (11.9-15.9) 08/21/19 10:30 Plt Count 237 K/MM3 (134-434) 08/21/19 10:30 MPV 8.6 fl (7.5-11.1) D 08/21/19 10:30 Sodium 138 mmol/L (136-145) 08/21/19 10:30 Potassium 4.5 mmol/L (3.5-5.1) 08/21/19 10:30 Chloride 108 mmol/L (98-107) H 08/21/19 10:30 Carbon Dioxide 22 mmol/L (21-32) 08/21/19 10:30 Anion Gap 9 MMOL/L (8-16) 08/21/19 10:30 BUN 17.5 mg/dL (7-18) 08/21/19 10:30 Creatinine 1.3 mg/dL (0.55-1.3) 08/21/19 10:30 Est GFR (CKD-EPI)AfAm 73.22 08/21/19 10:30 Est GFR (CKD-EPI)NonAf 63.18 08/21/19 10:30 Random Glucose 93 mg/dL (74-106) 08/21/19 10:30 Calcium 9.0 mg/dL (8.5-10.1) 08/21/19 10:30 Total Bilirubin 0.2 mg/dL (0.2-1) 08/21/19 10:30 AST 36 U/L (15-37) 08/21/19 10:30 ALT 33 U/L (13-61) 08/21/19 10:30 Alkaline Phosphatase 79 U/L (45-117) 08/21/19 10:30 Total Protein 8.9 g/dl (6.4-8.2) H 08/21/19 10:30 Albumin 4.0 g/dl (3.4-5.0) 08/21/19 10:30 Assessment: 08/22/19 09:54 WITHDRAWAL SYMPTOM Plan: CONTINUE DETOX VALIUM REGIMEN,
[2019-08-22] MEDS ORDERED: PATIENT'S OWN MEDICATION (NON-FORMULARY) (Dolutegravir/Rilpivirine [Juluca 50-25 Mg Tablet PO SCH (10:00)
[2019-08-22] MEDS: QUEtiapine FUMARATE 400 MG TABLET PO SCH ×2 (10:15→21:08)
[2019-08-22] MEDS: PRENATAL VITAMINS W/ FOLIC ACID TABLET (FP) PO SCH (10:15)
[2019-08-22] MEDS: RILPIVIRINE HCL 25 MG TABLET PO SCH (11:07)
[2019-08-22] MEDS: DOLUTEGRAVIR SODIUM 50 MG TABLET (NON-FORMULARY) PO SCH (11:07)
[2019-08-22] MEDS: THIAMINE HCL 100 MG TABLET (FP) PO SCH (21:08)
[2019-08-23] MEDS: diazePAM 5 MG TABLET PO SCH ×2 (06:07→17:29)
[2019-08-23] MEDS: NICOTINE POLACRILEX 4 MG GUM BUC PRN ×4 (06:08→16:00)
[2019-08-23] MEDS: QUEtiapine FUMARATE 400 MG TABLET PO SCH ×2 (09:32→21:21)
[2019-08-23] MEDS: PRENATAL VITAMINS W/ FOLIC ACID TABLET (FP) PO SCH (09:32)
[2019-08-23] MEDS: DOLUTEGRAVIR SODIUM 50 MG TABLET (NON-FORMULARY) PO SCH (09:33)
[2019-08-23] MEDS: RILPIVIRINE HCL 25 MG TABLET PO SCH (09:33)
--- NOTE | 2019-08-23 11:42 | PN ---
[facility] CIWA - CIWA Score Nausea/Vomitin Muscle Tremors: 1-None Visible, but [place] Anxiety: 2 Agitation: 2 Paroxysmal Sweats: No Perspiration Orientation: 0-Oriented Tacttile Disturbances: 1-Very Mild Itch/Numbness Auditory Disturbances: 0-None Visual Disturbances: 0-None Headache: 1-Very Mild CIWA-Ar Total Score: 9 S Progress Note (SOAP) Subjective: alert,irritable,anxious,interrupted sleep,diarrhea,pain in the body Objective: 08/23/19 11:40 Vital Signs Temperature 97.6 F 08/23/19 09:33 Pulse Rate 100 H 08/23/19 09:33 Respiratory Rate 18 08/23/19 09:33 Blood Pressure 115/64 08/23/19 09:33 O2 Sat by Pulse Oximetry (%) Assessment: 08/23/19 11:41 withdrawal symptom Plan: continue detox valium regimen,imodium 4 mgs q 8 hrs prn for diarrhea,discharge in am
[2019-08-23] MEDS: LOPERAMIDE HCL 2 MG CAPSULE PO PRN (17:32)
[2019-08-23] MEDS: THIAMINE HCL 100 MG TABLET (FP) PO SCH (21:21)
[2019-08-24] MEDS: LOPERAMIDE HCL 2 MG CAPSULE PO PRN (05:12)
[2019-08-24] MEDS: NICOTINE POLACRILEX 4 MG GUM BUC PRN ×2 (05:13→10:07)
[2019-08-24] MEDS ORDERED: diazePAM 5 MG TABLET PO ONE (06:00)
--- NOTE | 2019-08-24 08:27 | DS ---
[facility] Detox Discharge Summary Admission Date: 08/21/19 Discharge Date: 08/24/19 - History Present History: Alcohol Dependence, Cannabis Dependence, Cocaine Dependence - Physical Exam Results Vital Signs: Vital Signs Temperature 98.1 F 08/24/19 06:00 Pulse Rate 111 H 08/24/19 06:00 Respiratory Rate 18 08/24/19 06:00 Blood Pressure 130/81 08/24/19 06:00 O2 Sat by Pulse Oximetry (%) Pertinent Admission Physical Exam Findings: pt arrived in withdrawals Vital Signs Temperature 98.1 F 08/24/19 06:00 Pulse Rate 111 H 08/24/19 06:00 Respiratory Rate 18 08/24/19 06:00 Blood Pressure 130/81 08/24/19 06:00 O2 Sat by Pulse Oximetry (%) Laboratory Tests 08/21/19 08/21/19 10:30 10:30 WBC 4.2 RBC 4.58 Hgb 13.7 Hct 42.0 MCV 91.9 MCH 29.9 MCHC 32.6 RDW 13.0 Plt Count 237 MPV 8.6 D Sodium 138 Potassium 4.5 Chloride 108 H Carbon Dioxide 22 Anion Gap 9 BUN 17.5 Creatinine 1.3 Est GFR (CKD-EPI)AfAm 73.22 Est GFR (CKD-EPI)NonAf 63.18 Random Glucose 93 Calcium 9.0 Total Bilirubin 0.2 AST 36 ALT 33 Alkaline Phosphatase 79 Total Protein 8.9 H Albumin 4.0 aaox3 ambulating no acute distress no s/s of withdrawal - Treatment Hospital Course: Detox Protocol Followed, Detoxed Safely, Responded well, Discharged Condition Good, Rehab Referral Accepted Patient has Accepted a Rehab Referral to: [facility] OTP - Medication Discharge Medications: Ambulatory Orders Quetiapine Fumarate [Seroquel -] 400 mg PO BID 04/27/19 Dolutegravir/Rilpivirine [Juluca 50-25 mg Tablet] 1 each PO DAILY 08/21/19 Loperamide HCl [Loperamide] 2 mg PO TID 08/21/19 - Diagnosis (1) Alcohol dependence with uncomplicated withdrawal Current Visit: Yes Status: Chronic (2) Cocaine dependence, uncomplicated Current Visit: Yes Status: Chronic (3) Substance-induced anxiety disorder Current Visit: Yes Status: Acute (4) Nicotine dependence Current Visit: Yes Status: Chronic Qualifiers: Nicotine product type: cigarettes Substance use status: uncomplicated Qualified Code(s): F17.210 - Nicotine dependence, cigarettes, uncomplicated (5) KARIE (acute kidney injury) Current Visit: No Status: Acute (6) Cannabis use disorder, mild, abuse Current Visit: No Status: Acute (7) Elevated blood-pressure reading, without diagnosis of hypertension Current Visit: No Status: Acute (8) Hyperglycemia Current Visit: No Status: Acute (9) Insomnia Current Visit: No Status: Acute Qualifiers: (10) Substance induced mood disorder Current Visit: No Status: Acute (11) Substance-induced sleep disorder Current Visit: No Status: Acute (12) Human immunodeficiency virus infection Current Visit: Yes Status: Chronic (13) Paranoid schizophrenia Current Visit: No Status: Chronic (14) Posttraumatic stress disorder Current Visit: No Status: Chronic (15) Schizophrenia Current Visit: No Status: Chronic Qualifiers: Schizophrenia type: disorganized schizophrenia Qualified Code(s): F20.1 - Disorganized schizophrenia (16) Weight decreased Current Visit: No Status: Chronic - AMA Did Patient Leave Against Medical Advice: No
[2019-08-24 09:41] VITALS: BP 134/80; PULSE 109; TEMP 98.6
[2019-08-24] MEDS: QUEtiapine FUMARATE 400 MG TABLET PO SCH (10:03)
[2019-08-24] MEDS: PRENATAL VITAMINS W/ FOLIC ACID TABLET (FP) PO SCH (10:03)
[2019-08-24] MEDS: RILPIVIRINE HCL 25 MG TABLET PO SCH (10:05)
[2019-08-24] MEDS: DOLUTEGRAVIR SODIUM 50 MG TABLET (NON-FORMULARY) PO SCH (10:06)
== END 2019-08-24 10:50 | disposition home or self-care (01) | DRG 897 ==
LOC: YASAS 08:32 → Y6N 10:20
PROVIDERS: ADMIT Allergy & Immunology; ATTEND Allergy & Immunology
PROC: HZ2ZZZZ Detoxification Services for Substance Abuse Treatment (ICD-10-PCS; principal; 2019-08-21)
DX: F10.230 Alcohol dependence with withdrawal, uncomplicated (principal); F14.20 Cocaine dependence, uncomplicated; F19.280 Other psychoactive substance dependence with psychoactive substance-induced anxiety disorder; F19.282 Other psychoactive substance dependence with psychoactive substance-induced sleep disorder; F20.0 Paranoid schizophrenia; F20.1 Disorganized schizophrenia; N17.9 Acute kidney failure, unspecified; F12.20 Cannabis dependence, uncomplicated; F17.210 Nicotine dependence, cigarettes, uncomplicated; F19.24 Other psychoactive substance dependence with psychoactive substance-induced mood disorder; F43.10 Post-traumatic stress disorder, unspecified; Z21 Asymptomatic human immunodeficiency virus [HIV] infection status; R73.9 Hyperglycemia, unspecified; G47.00 Insomnia, unspecified; R63.4 Abnormal weight loss; Z68.27 Body mass index [BMI] 27.0-27.9, adult
CPT/HCPCS: 36415; 80053; 85027

== ENCOUNTER 2020-06-06 12:26 | Inpatient (IN) | payer OTHER ==
--- NOTE | 2020-06-06 12:46 | BHS.RME ---
Substance Use & Tx History - Substance Use History Alcohol Substance amount: 10 beers 24 0z Frequency of use: Daily Date of Last Use: 06/06/20 Cocaine-Crack Substance amount: $10 Frequency of use: Less than 5 times a year Substance route: Smoking Date of Last Use: 06/05/20 Nicotine Substance amount: 1 pack Frequency of use: Daily Date of Last Use: 06/06/20 - Last Treatment Date of last treatment: 2019 completed detox Treatment type: Substance Use Disorder ([facility]NESTINA) Where was last treatment: Detox Physical/Psych/Mental Status - Behavior General Behavior: Increased activity (restlessness, agitation) Eye Contact: Normal - Cooperativeness Cooperativeness: Cooperative - Thinking Thought Processes: Tight, Logical, Goal Directed - Physical Health Problems Is patient presently having any pain?: No Does patient presently have any injuries (include location): No Does patient currently have a fever: No Is patient : No CIWA Nausea/Vomitin Muscle Tremors: 5 Anxiety: 4-Mod. Anxious/Guarded Agitation: 4-Moderately Restless Paroxysmal Sweats: 4-Forehead w/Sweat Beads Orientation: 1-Uncertain about Date Tacttile Disturbances: 0-None Auditory Disturbances: 0-None Visual Disturbances: 0-None Headache: 0-None Present CIWA-Ar Total Score: 21
[2020-06-06 13:46] VITALS: BMI 26.2
--- NOTE | 2020-06-06 14:08 | HP ---
CIWA Score Nausea/Vomitin Muscle Tremors: 5 Anxiety: 4-Mod. Anxious/Guarded Agitation: 4-Moderately Restless Paroxysmal Sweats: 4-Forehead w/Sweat Beads Orientation: 1-Uncertain about Date Tacttile Disturbances: 0-None Auditory Disturbances: 0-None Visual Disturbances: 0-None Headache: 0-None Present CIWA-Ar Total Score: 21 - Admission Criteria OASAS Guidelines: Admission for Medically Managed Detox: Requires at least one of the followin. CIWA greater than 12 2. Seizures within the past 24 hours 3. Delirium tremens within the past 24 hours 4. Hallucinations within the past 24 hours 5. Acute intervention needed for co occurring medical disorder 6. Acute intervention needed for co occurring psychiatric disorder 7. Severe withdrawal that cannot be handled at a lower level of care (continued vomiting, continued diarrhea, abnormal vital signs) requiring intravenous medication and/or fluids 8. Admitting History and Physical - Admission Chief Complaint: Mr. Oconnor is a 49 yo gentleman who presents to [facility] requesting admission to detox for alcohol use disorder. History of Present Illness: Mr. Oconnor is a 49 yo gentleman who presents to [facility] requesting admission to detox for alcohol use disorder. PM: HIV, compliant with Biktarvy PSH: none Psych: paranoid schizophrenia, PtSD on Seroquel/complaint SOC: SRO Legal: none Substance Use History Alcohol Substance amount: 10 beers 24 0z Frequency of use: Daily Date of Last Use: 06/06/20 Cocaine-Crack Substance amount: $10 Frequency of use: Less than 5 times a year Substance route: Smoking Date of Last Use: 06/05/20 Nicotine Substance amount: 1 pack Frequency of use: Daily Date of Last Use: 06/06/20 - Last Treatment Date of last treatment: 2019 completed detox Treatment type: Substance Use Disorder (ERNESTINA) Where was last treatment: Detox - Smoking History Smoking history: Current every day smoker Have you smoked in the past 12 months: Yes Aproximately how many cigarettes per day: 20 - Alcohol/Substance Use Hx Alcohol Use: Yes (10 beers per day) Admission ROS S - HPI Allergies/Adverse Reactions: Allergies Allergy/AdvReac Type Severity Reaction Status Date / Time haloperidol [From Haldol] Allergy Severe Difficulty Verified 06/06/20 13:36 Breathing Exam Limitations: No Limitations - Ebola screening Have you traveled outside of the country in the last 21 days: No Have you been sick,other than usual withdrawal symptoms: No Do you have a fever: No - Review of Systems Constitutional: No Symptoms Reported EENT: reports: No Symptoms Reported Respiratory: reports: No Symptoms reported Cardiac: reports: No Symptoms Reported GI: reports: Diarrhea (he attributes to Biktarvy, takes loperamide bid) : reports: No Symptoms Reported Musculoskeletal: reports: No Symptoms Reported Integumentary: reports: Other (right index finger cut on a razor upon admission) Neuro: reports: No Symptoms reported Endocrine: reports: No Symptoms Reported Hematology: reports: No Symptoms Reported Psychiatric: reports: Anxious Patient History - Patient Medical History Hx Anemia: No Hx Asthma: No Hx Chronic Obstructive Pulmonary Disease (COPD): No Hx Cancer: No Hx Cardiac Disorders: No Hx Congestive Heart Failure: No Hx Hypertension: No Hx Hypercholesterolemia: No Hx Pacemaker: No HX Cerebrovascular Accident: No Hx Seizures: No Hx Dementia: No Hx Diabetes: No Hx Gastrointestinal Disorders: No Hx Liver Disease: No Hx Genitourinary Disorders: No Hx Sexually Transmitted Disorders: No Hx Renal Disease (ESRD): No Hx Thyroid Disease: No Hx Human Immunodeficiency Virus (HIV): Yes (since 2001 ) Hx Hepatitis C: No Hx Depression: Yes Hx Suicide Attempt: Yes (Tried to overdose in 1994.) Hx Bipolar Disorder: No Hx Schizophrenia: Yes - Patient Surgical History Past Surgical History: No Hx Neurologic Surgery: No Hx Cataract Extraction: No Hx Cardiac Surgery: No Hx Lung Surgery: No Hx Breast Surgery: No Hx Breast Biopsy: No Hx Abdominal Surgery: No Hx Appendectomy: No Hx Cholecystectomy: No Hx Genitourinary Surgery: No Hx Section: No Hx Orthopedic Surgery: No Hx Hysterectomy: No Other Surgical History: polypectomy ( colon ) , hemorrhoidectomy Anesthesia Reaction: No - PPD History Date: 01/16/17 Results: 0 mm - Smoking Cessation Smoking history: Current every day smoker Have you smoked in the past 12 months: Yes Aproximately how many cigarettes per day: 20 Cigars Per Day: 0 Hx Chewing Tobacco Use: No Initiated information on smoking cessation: Yes 'Breaking Loose' booklet given: 06/06/20 - Substances abused Alcohol Substance route: Oral Frequency: Daily Amount used: 10 BEERS Age of first use: 36 Date of last use: 06/06/20 Crack Substance route: Smoking Frequency: 1-3 times last 30 days Amount used: $10 Age of first use: 40 Date of last use: 06/03/20 Admission Physical Exam BHS - Vital Signs Vital Signs: Vital Signs - 24 hr 06/06/20 13:40 Temperature 97.3 F L Pulse Rate 106 H Respiratory 14 Rate Blood Pressure 137/92 - Physical General Appearance: Yes: No Apparent Distress, Nourished, Anxious HEENTM: Yes: EOMI, Hearing grossly Normal, Normocephalic, Normal Voice Respiratory: Yes: Lungs Clear, No Respiratory Distress, No Accessory Muscle Use Neck: Yes: Within Normal Limits, Supple Breast: Yes: Breast Exam Deferred Cardiology: Yes: Regular Rhythm, Regular Rate Abdominal: Yes: Normal Bowel Sounds, Non Tender, Flat, Soft Genitourinary: Yes: Other (deferred) Back: Yes: Normal Inspection Musculoskeletal: Yes: Gait Steady Extremities: Yes: Normal Inspection, Non-Tender Neurological: Yes: Alert, Normal Response Integumentary: Yes: Other (.5 inch clean superficial laceration tip of right index finger) - Diagnostic (1) Laceration Current Visit: Yes Status: Acute Comment: 1. initial tx: cleansed with soap and water then pressure dressing applied 2. later: bandage removed, small amount of oozing blood noted 3. band aid dressing to site, will observe 4. pt states he is up to date on his tetanus (2) Alcohol dependence with uncomplicated withdrawal Current Visit: No Status: Chronic Comment: 1. Admit alcohol use disorder, withdrawal, Librium protocol 2. Librium taper 3. Routine labs 4. comfort medication (3) Cocaine dependence, uncomplicated Current Visit: No Status: Chronic Comment: 1. substance use education (4) Human immunodeficiency virus infection Current Visit: No Status: Chronic Comment: 1. continue Biktarvy, pt compliant 2. continue loperamide (5) Nicotine dependence Current Visit: No Status: Chronic Qualifiers: Nicotine product type: cigarettes Substance use status: uncomplicated Qualified Code(s): F17.210 - Nicotine dependence, cigarettes, uncomplicated Comment: 1. nicotine replacement therapy 2. smoking cessation education pamphlet (6) Paranoid schizophrenia Current Visit: No Status: Chronic Comment: 1. Psychiatry consultation, pt states he is complaint with Seroquel (7) Posttraumatic stress disorder Current Visit: No Status: Chronic Cleared for Admission S - Detox or Rehab [facility] Level of Care: Medically Managed Detox Regimen/Protocol: Librium Breathalyzer - Breathalyzer Breathalyzer: 0.008 POC Urine test - Test device test lot number: not applicable Urine Drug Screen - Test Device Lot number: [id number] Expiration date: 12/25/21 - Control Is test valid?: Yes - Results Drug screen NEGATIVE: No Urine drug screen results: IAIN-Cocaine Inpatient Rehab Admission - Rehab Decision to Admit Inpatient rehab admission?: No
[2020-06-06] MEDS ORDERED: METHOCARBAMOL 500 MG TABLET PO PRN (14:13)
[2020-06-06] MEDS ORDERED: MENTHOL/PHENOL 1 EACH UD MM PRN (14:13)
[2020-06-06] MEDS ORDERED: IBUPROFEN 400 MG TABLET (FP) PO PRN (14:13)
[2020-06-06] MEDS ORDERED: ACETAMINOPHEN 325 MG TABLET (FP) PO PRN ×2 (14:13)
[2020-06-06] MEDS ORDERED: MAGNESIUM CITRATE 300 ML BOTTLE PO PRN (14:13)
[2020-06-06] MEDS ORDERED: BISMUTH SUBSALICYLATE 524 MG/30 ML UD PO PRN (14:13)
[2020-06-06] MEDS ORDERED: MAGNESIUM HYDROX 2400MG/30ML ORAL SUSPENSION 30 ML CUP PO PRN (14:13)
[2020-06-06] MEDS ORDERED: MAG HYDROX/AL HYDROX/SIMETH 30 ML UNIT-DOSE CUP PO PRN (14:13)
[2020-06-06] MEDS ORDERED: ONDANSETRON *ODT* 4 MG TABLET SL PRN (14:13)
[2020-06-06] MEDS ORDERED: chlordiazePOXIDE HCL 25 MG CAPSULE PO PRN (14:13)
[2020-06-06] MEDS: NICOTINE 21 MG/24 HOURS TOPICAL PATCH TD SCH (14:54)
[2020-06-06] MEDS ORDERED: LOPERAMIDE HCL 2 MG CAPSULE PO ONE (14:56)
[2020-06-06] MEDS: NICOTINE POLACRILEX 4 MG GUM BUC PRN ×3 (14:59→22:54)
[2020-06-06] MEDS: chlordiazePOXIDE HCL 25 MG CAPSULE PO SCH ×2 (17:57→22:52)
[2020-06-06 18:26] LABS: HEMATOCRIT 37.3 % (35.4-49); HEMOGLOBIN 12.6 GM/dL (11.7-16.9); MCH 31.1 pg (25.7-33.7); MCHC 33.8 g/dl (32.0-35.9); PLATELET COUNT 271 K/MM3 (134-434); RBC 4.06 M/mm3 (4.00-5.60); RDW 12.9 % (11.9-15.9); WHITE BLOOD COUNT 5.8 K/mm3 (4.0-10.0)
[2020-06-06] MEDS: hydrOXYzine PAMOATE 25 MG CAPSULE (FP) PO SCH ×2 (18:34→22:53)
[2020-06-06 18:40] LABS: ALBUMIN 3.8 g/dl (3.4-5.0); BILIRUBIN,TOTAL 0.8 mg/dL (0.2-1); BLOOD UREA NITROGEN 14.7 mg/dL (7-18); CALCIUM 9.2 mg/dL (8.5-10.1); CREATININE 1.1 mg/dL (0.55-1.3); POTASSIUM 4.1 mmol/L (3.5-5.1); TOT PROT 8.5 g/dl (6.4-8.2)
[2020-06-06] MEDS: THIAMINE HCL 100 MG TABLET (FP) PO SCH (22:52)
[2020-06-06] MEDS: LOPERAMIDE HCL 2 MG CAPSULE PO SCH (22:52)
[2020-06-06] MEDS: MELATONIN 5 MG TABLETS PO SCH (22:54)
[2020-06-07] MEDS: chlordiazePOXIDE HCL 25 MG CAPSULE PO SCH ×4 (06:48→22:21)
[2020-06-07] MEDS: hydrOXYzine PAMOATE 25 MG CAPSULE (FP) PO SCH ×5 (06:48→22:20)
[2020-06-07] MEDS: NICOTINE POLACRILEX 4 MG GUM BUC PRN ×4 (07:11→19:02)
[2020-06-07] MEDS: BICTEGRAV/EMTRICIT/TENOFOV (BIKTARVY) 50-200-25 MG TABLET PO SCH (09:12)
[2020-06-07] MEDS: LOPERAMIDE HCL 2 MG CAPSULE PO SCH (09:12)
[2020-06-07] MEDS: PRENATAL VITAMINS W/ FOLIC ACID TABLET (FP) PO SCH (09:13)
[2020-06-07] MEDS: NICOTINE 21 MG/24 HOURS TOPICAL PATCH TD SCH (09:13)
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
[2020-06-07] MEDS: QUEtiapine FUMARATE 400 MG TABLET PO SCH ×2 (11:23→22:17)
--- NOTE | 2020-06-07 11:59 | PN ---
[facility] CIWA - CIWA Score Nausea/Vomitin-Mild Nausea/No Vomiting Muscle Tremors: 3 Anxiety: 3 Agitation: 3 Paroxysmal Sweats: 2 Orientation: 0-Oriented Tacttile Disturbances: 0-None Auditory Disturbances: 0-None Visual Disturbances: 0-None Headache: 0-None Present CIWA-Ar Total Score: 12 S Progress Note (SOAP) Subjective: Complaints of nausea, diarrhea,tremors, anxiety and sweats. Objective: 06/07/20 11:58 Vital Signs 06/07/20 06/07/20 05:31 09:15 Temperature 97.5 F L 97.7 F Pulse Rate 80 100 H Respiratory 20 19 Rate Blood Pressure 129/70 143/93 O2 Sat by Pulse 99 100 Oximetry (%) Laboratory Last Values WBC 5.8 K/mm3 (4.0-10.0) 06/06/20 13:40 RBC 4.06 M/mm3 (4.00-5.60) 06/06/20 13:40 Hgb 12.6 GM/dL (11.7-16.9) 06/06/20 13:40 Hct 37.3 % (35.4-49) 06/06/20 13:40 MCV 92.0 fl (80-96) 06/06/20 13:40 MCH 31.1 pg (25.7-33.7) 06/06/20 13:40 MCHC 33.8 g/dl (32.0-35.9) 06/06/20 13:40 RDW 12.9 % (11.9-15.9) 06/06/20 13:40 Plt Count 271 K/MM3 (134-434) 06/06/20 13:40 MPV 8.0 fl (7.5-11.1) 06/06/20 13:40 Sodium 136 mmol/L (136-145) 06/06/20 13:40 Potassium 4.1 mmol/L (3.5-5.1) 06/06/20 13:40 Chloride 106 mmol/L (98-107) 06/06/20 13:40 Carbon Dioxide 24 mmol/L (21-32) 06/06/20 13:40 Anion Gap 6 MMOL/L (8-16) L 06/06/20 13:40 BUN 14.7 mg/dL (7-18) 06/06/20 13:40 Creatinine 1.1 mg/dL (0.55-1.3) 06/06/20 13:40 Est GFR (CKD-EPI)AfAm 89.61 06/06/20 13:40 Est GFR (CKD-EPI)NonAf 77.32 06/06/20 13:40 Random Glucose 115 mg/dL (74-106) H 06/06/20 13:40 Calcium 9.2 mg/dL (8.5-10.1) 06/06/20 13:40 Total Bilirubin 0.8 mg/dL (0.2-1) 06/06/20 13:40 AST 18 U/L (15-37) 06/06/20 13:40 ALT 23 U/L (13-61) 06/06/20 13:40 Alkaline Phosphatase 75 U/L (45-117) 06/06/20 13:40 Total Protein 8.5 g/dl (6.4-8.2) H 06/06/20 13:40 Albumin 3.8 g/dl (3.4-5.0) 06/06/20 13:40 Syphilis Serology Non-reactive (NONREACTIVE) 06/06/20 13:40 Labs noted. Assessment: 06/07/20 11:59 Alert and oriented x 3, in no acute distress. Full ROM, ambulating in the unit without assistance. Skin was to touch with any lesions. Withdrawal symptoms. Plan: Continue detox protocol.
--- NOTE | 2020-06-07 19:08 | PN ---
S Progress Note Note: C/o increase frequency in diarrhea r/t withdrawal symptoms. Takes imodium 4 mg PO BID @ home. Vital Signs 06/07/20 06/07/20 12:40 17:20 Temperature 97.6 F 97.8 F Pulse Rate 113 H 87 Respiratory 19 18 Rate Blood Pressure 113/67 139/82 O2 Sat by Pulse 100 100 Oximetry (%) CMP Sodium 136 mmol/L (136-145) 06/06/20 13:40 Potassium 4.1 mmol/L (3.5-5.1) 06/06/20 13:40 Chloride 106 mmol/L (98-107) 06/06/20 13:40 Carbon Dioxide 24 mmol/L (21-32) 06/06/20 13:40 Anion Gap 6 MMOL/L (8-16) L 06/06/20 13:40 BUN 14.7 mg/dL (7-18) 06/06/20 13:40 Creatinine 1.1 mg/dL (0.55-1.3) 06/06/20 13:40 Est GFR (CKD-EPI)AfAm 89.61 06/06/20 13:40 Est GFR (CKD-EPI)NonAf 77.32 06/06/20 13:40 Random Glucose 115 mg/dL (74-106) H 06/06/20 13:40 Calcium 9.2 mg/dL (8.5-10.1) 06/06/20 13:40 Total Bilirubin 0.8 mg/dL (0.2-1) 06/06/20 13:40 AST 18 U/L (15-37) 06/06/20 13:40 ALT 23 U/L (13-61) 06/06/20 13:40 Alkaline Phosphatase 75 U/L (45-117) 06/06/20 13:40 Total Protein 8.5 g/dl (6.4-8.2) H 06/06/20 13:40 Albumin 3.8 g/dl (3.4-5.0) 06/06/20 13:40 Plan: Will increase to 4 mg q6h prn during this admission.
[2020-06-07] MEDS: LOPERAMIDE HCL 2 MG CAPSULE PO PRN (22:18)
[2020-06-07] MEDS: MELATONIN 5 MG TABLETS PO SCH (22:20)
[2020-06-07] MEDS: THIAMINE HCL 100 MG TABLET (FP) PO SCH (22:20)
[2020-06-08] MEDS: LOPERAMIDE HCL 2 MG CAPSULE PO PRN ×3 (05:33→22:11)
[2020-06-08] MEDS: chlordiazePOXIDE HCL 25 MG CAPSULE PO SCH ×4 (07:04→23:51)
[2020-06-08] MEDS: hydrOXYzine PAMOATE 25 MG CAPSULE (FP) PO SCH ×5 (07:05→23:50)
[2020-06-08] MEDS: BICTEGRAV/EMTRICIT/TENOFOV (BIKTARVY) 50-200-25 MG TABLET PO SCH (07:45)
[2020-06-08] MEDS: QUEtiapine FUMARATE 400 MG TABLET PO SCH ×2 (10:24→22:11)
[2020-06-08] MEDS: PRENATAL VITAMINS W/ FOLIC ACID TABLET (FP) PO SCH (10:24)
[2020-06-08] MEDS: NICOTINE 21 MG/24 HOURS TOPICAL PATCH TD SCH (10:24)
[2020-06-08] MEDS: NICOTINE POLACRILEX 4 MG GUM BUC PRN ×3 (10:26→17:24)
--- NOTE | 2020-06-08 16:26 | PN ---
[facility] CIWA - CIWA Score Nausea/Vomitin-Mild Nausea/No Vomiting Muscle Tremors: 2 Anxiety: 2 Agitation: 2 Paroxysmal Sweats: 2 Orientation: 0-Oriented Tacttile Disturbances: 0-None Auditory Disturbances: 0-None Visual Disturbances: 0-None Headache: 0-None Present CIWA-Ar Total Score: 9 S Progress Note (SOAP) Subjective: Diarrhea, chills, sweating, interrupted sleep Objective: 06/08/20 16:23 Last Vital Signs Temp Pulse Resp BP Pulse Ox 97.3 F L 88 18 134/88 100 06/08/20 08:34 06/08/20 08:34 06/08/20 08:34 06/08/20 08:34 06/08/20 08:34 Elevated b/p noted Laboratory Tests 06/06/20 06/06/20 06/06/20 13:40 13:40 13:40 WBC 5.8 RBC 4.06 Hgb 12.6 Hct 37.3 MCV 92.0 MCH 31.1 MCHC 33.8 RDW 12.9 Plt Count 271 MPV 8.0 Sodium 136 Potassium 4.1 Chloride 106 Carbon Dioxide 24 Anion Gap 6 L BUN 14.7 Creatinine 1.1 Est GFR (CKD-EPI)AfAm 89.61 Est GFR (CKD-EPI)NonAf 77.32 Random Glucose 115 H Calcium 9.2 Total Bilirubin 0.8 AST 18 ALT 23 Alkaline Phosphatase 75 Total Protein 8.5 H Albumin 3.8 Syphilis Serology Non-reactive COVID-19 (GILLIAN) 06/06/20 14:03 WBC RBC Hgb Hct MCV MCH MCHC RDW Plt Count MPV Sodium Potassium Chloride Carbon Dioxide Anion Gap BUN Creatinine Est GFR (CKD-EPI)AfAm Est GFR (CKD-EPI)NonAf Random Glucose Calcium Total Bilirubin AST ALT Alkaline Phosphatase Total Protein Albumin Syphilis Serology COVID-19 (GILLIAN) Not detected Labs reviewed: serum glucose 115 (high) Assessment: 06/08/20 16:24 Withdrawal sxs Noted with elevated b/p and hyperglycemia Plan: Continue detox Encourage PO water intake Elevated b/p: b/p consecutively elevated, will start treatment for HTN with norvasc 5mg PO daily, first dose now, hold if b/p <=120/80 Hyperglycemia: repeat fasting glucose
[2020-06-08] MEDS ORDERED: amLODIPine BESYLATE 5 MG TABLET (FP) PO ONE (16:27)
[2020-06-08] MEDS: MELATONIN 5 MG TABLETS PO SCH (23:48)
[2020-06-08] MEDS: THIAMINE HCL 100 MG TABLET (FP) PO SCH (23:50)
[2020-06-09] MEDS ORDERED: chlordiazePOXIDE HCL 10 MG CAPSULE PO PRN
[2020-06-09] MEDS ORDERED: chlordiazePOXIDE HCL 10 MG CAPSULE PO SCH (05:00)
[2020-06-09] MEDS: hydrOXYzine PAMOATE 25 MG CAPSULE (FP) PO SCH (06:33)
[2020-06-09] MEDS: NICOTINE POLACRILEX 4 MG GUM BUC PRN (06:35)
[2020-06-09] MEDS: LOPERAMIDE HCL 2 MG CAPSULE PO PRN (06:37)
--- NOTE | 2020-06-09 09:04 | DS ---
[facility] Detox Discharge Summary Admission Date: 06/06/20 Discharge Date: 06/09/20 - History Present History: Alcohol Dependence, Cannabis Dependence, Cocaine Dependence - Physical Exam Results Vital Signs: Vital Signs Temperature 97.7 F 06/09/20 07:28 Pulse Rate 82 06/09/20 07:28 Respiratory Rate 18 06/09/20 07:28 Blood Pressure 145/93 06/09/20 07:28 O2 Sat by Pulse Oximetry (%) 96 06/09/20 07:28 Pertinent Admission Physical Exam Findings: Vital Signs Temperature 97.7 F 06/09/20 07:28 Pulse Rate 82 06/09/20 07:28 Respiratory Rate 18 06/09/20 07:28 Blood Pressure 145/93 06/09/20 07:28 O2 Sat by Pulse Oximetry (%) 96 06/09/20 07:28 Laboratory Tests 06/06/20 06/06/20 06/06/20 13:40 13:40 13:40 WBC 5.8 RBC 4.06 Hgb 12.6 Hct 37.3 MCV 92.0 MCH 31.1 MCHC 33.8 RDW 12.9 Plt Count 271 MPV 8.0 Sodium 136 Potassium 4.1 Chloride 106 Carbon Dioxide 24 Anion Gap 6 L BUN 14.7 Creatinine 1.1 Est GFR (CKD-EPI)AfAm 89.61 Est GFR (CKD-EPI)NonAf 77.32 Random Glucose 115 H Calcium 9.2 Total Bilirubin 0.8 AST 18 ALT 23 Alkaline Phosphatase 75 Total Protein 8.5 H Albumin 3.8 Syphilis Serology Non-reactive COVID-19 (GILLIAN) 06/06/20 14:03 WBC RBC Hgb Hct MCV MCH MCHC RDW Plt Count MPV Sodium Potassium Chloride Carbon Dioxide Anion Gap BUN Creatinine Est GFR (CKD-EPI)AfAm Est GFR (CKD-EPI)NonAf Random Glucose Calcium Total Bilirubin AST ALT Alkaline Phosphatase Total Protein Albumin Syphilis Serology COVID-19 (GILLIAN) Not detected labs noted aaox3 ambulating no acute distress lungs CTA - Treatment Hospital Course: Detox Protocol Followed, Detoxed Safely, Responded well, Discharged Condition Good, Rehab Referral Accepted - Medication Discharge Medications: Ambulatory Orders Quetiapine Fumarate [Seroquel -] 400 mg PO BID 04/27/19 Loperamide HCl [Loperamide] 4 mg PO BID 08/21/19 Bictegrav/Emtricit/Tenofov Ala [Biktarvy 50-200-25 mg Tablet] 1 each PO DAILY 06/06/20 - Diagnosis (1) Alcohol dependence with uncomplicated withdrawal Current Visit: Yes Status: Chronic (2) Laceration Current Visit: Yes Status: Acute (3) Cocaine dependence, uncomplicated Current Visit: Yes Status: Chronic (4) Paranoid schizophrenia Current Visit: Yes Status: Chronic (5) Posttraumatic stress disorder Current Visit: Yes Status: Chronic (6) KARIE (acute kidney injury) Current Visit: No Status: Acute (7) Cannabis use disorder, mild, abuse Current Visit: No Status: Acute (8) Elevated blood-pressure reading, without diagnosis of hypertension Current Visit: No Status: Acute (9) Hyperglycemia Current Visit: No Status: Acute (10) Insomnia Current Visit: No Status: Acute Qualifiers: (11) Substance induced mood disorder Current Visit: No Status: Acute (12) Substance-induced anxiety disorder Current Visit: No Status: Acute (13) Substance-induced sleep disorder Current Visit: No Status: Acute (14) Human immunodeficiency virus infection Current Visit: Yes Status: Chronic (15) Nicotine dependence Current Visit: Yes Status: Chronic Qualifiers: Nicotine product type: cigarettes Substance use status: uncomplicated Qualified Code(s): F17.210 - Nicotine dependence, cigarettes, uncomplicated (16) Schizophrenia Current Visit: No Status: Chronic Qualifiers: Schizophrenia type: disorganized schizophrenia Qualified Code(s): F20.1 - Disorganized schizophrenia (17) Weight decreased Current Visit: No Status: Chronic - AMA Did Patient Leave Against Medical Advice: No
[2020-06-09 09:07] VITALS: BP 150/85; PULSE 99; TEMP 97.3
--- NOTE | 2020-06-09 09:48 | PN ---
[facility] Progress Note Note: Patient is scheduled for discharge today. Script for 30 days supply of Seroquel 400 mg/bid are electronically transmitted to [facility], [address] [place] [id number]
[2020-06-09] MEDS ORDERED: amLODIPine BESYLATE 5 MG TABLET (FP) PO SCH (10:00)
[2020-06-10] MEDS ORDERED: chlordiazePOXIDE HCL 10 MG CAPSULE PO SCH (05:00)
[2020-06-11] MEDS ORDERED: chlordiazePOXIDE HCL 10 MG CAPSULE PO ONE (05:00)
== END 2020-06-09 09:24 | disposition home or self-care (01) | DRG 897 ==
LOC: YASAS 12:26 → Y6N 14:00
PROVIDERS: ADMIT Allergy & Immunology; ATTEND Allergy & Immunology
PROC: HZ2ZZZZ Detoxification Services for Substance Abuse Treatment (ICD-10-PCS; principal; 2020-06-06)
DX: F10.230 Alcohol dependence with withdrawal, uncomplicated (principal); F14.20 Cocaine dependence, uncomplicated; F20.0 Paranoid schizophrenia; F20.1 Disorganized schizophrenia; F19.282 Other psychoactive substance dependence with psychoactive substance-induced sleep disorder; F12.10 Cannabis abuse, uncomplicated; F17.210 Nicotine dependence, cigarettes, uncomplicated; F43.10 Post-traumatic stress disorder, unspecified; F19.24 Other psychoactive substance dependence with psychoactive substance-induced mood disorder; Z21 Asymptomatic human immunodeficiency virus [HIV] infection status; I10 Essential (primary) hypertension; Z62.810 Personal history of physical and sexual abuse in childhood; R73.9 Hyperglycemia, unspecified; R63.4 Abnormal weight loss; Z68.26 Body mass index [BMI] 26.0-26.9, adult; Z88.8 Allergy status to other drugs, medicaments and biological substances; Z86.010 Personal history of colon polyps; Z87.19 Personal history of other diseases of the digestive system; Z98.890 Other specified postprocedural states; S61.210A Laceration without foreign body of right index finger without damage to nail, initial encounter; W26.8XXA Contact with other sharp object(s), not elsewhere classified, initial encounter; Y93.E8 Activity, other personal hygiene; Y92.238 Other place in hospital as the place of occurrence of the external cause; Y99.8 Other external cause status
CPT/HCPCS: 36415; 80053; 85027; 86780; U0003

== ENCOUNTER 2021-02-18 11:58 | Inpatient (IN) | payer OTHER ==
[2021-02-18] MEDS ORDERED: LORazepam 1 MG TABLET PO PRN (14:49)
[2021-02-18] MEDS ORDERED: ACETAMINOPHEN 325 MG TABLET (FP) PO PRN (14:49)
[2021-02-18] MEDS ORDERED: P-EPHED 60MG/TRIPROLIDI 2.5MG TABLET PO PRN (14:49)
[2021-02-18] MEDS ORDERED: MAGNESIUM HYDROX 2400MG/30ML ORAL SUSPENSION 30 ML CUP PO PRN (14:49)
[2021-02-18] MEDS ORDERED: MAGNESIUM CITRATE 300 ML BOTTLE PO PRN (14:49)
[2021-02-18] MEDS ORDERED: MAG HYDROX/AL HYDROX/SIMETH 30 ML UNIT-DOSE CUP PO PRN (14:49)
[2021-02-18] MEDS ORDERED: IBUPROFEN 400 MG TABLET (FP) PO PRN (14:49)
[2021-02-18 17:07] VITALS: BMI 27.0
[2021-02-18 17:31] LABS: HEMATOCRIT 38.7 % (35.4-49); HEMOGLOBIN 12.9 GM/dL (11.7-16.9); MCH 30.7 pg (25.7-33.7); MCHC 33.4 g/dl (32.0-35.9); MEAN CELL VOLUME 91.9 fl (80-96); MEAN PLT VOLUME 9.1 fl (7.5-11.1); PLATELET COUNT 215 K/MM3 (134-434); RBC 4.21 M/mm3 (4.00-5.60); RDW 12.9 % (11.9-15.9); WHITE BLOOD COUNT 3.5 K/mm3 (4.0-10.0)
[2021-02-18 17:33] LABS: CALCIUM 8.9 mg/dL (8.5-10.1)
[2021-02-18 17:34] LABS: ALBUMIN 3.4 g/dl (3.4-5.0)
[2021-02-18 17:36] LABS: BLOOD UREA NITROGEN 9.6 mg/dL (7-18)
[2021-02-18 17:37] LABS: CREATININE 1.1 mg/dL (0.55-1.3)
[2021-02-18 17:38] LABS: BILIRUBIN,TOTAL 0.3 mg/dL (0.2-1); TOT PROT 8.8 g/dl (6.4-8.2)
[2021-02-18] MEDS: LORazepam 2 MG TABLET PO SCH ×2 (17:48→22:14)
[2021-02-18] MEDS: hydrOXYzine PAMOATE 25 MG CAPSULE (FP) PO SCH ×2 (17:49→22:14)
[2021-02-18] MEDS: NICOTINE POLACRILEX 4 MG GUM BC PRN ×2 (17:51→22:17)
[2021-02-18] MEDS: THIAMINE HCL 100 MG TABLET (FP) PO SCH (22:14)
[2021-02-18] MEDS: MELATONIN 5 MG TABLETS PO SCH (22:17)
[2021-02-19] MEDS: hydrOXYzine PAMOATE 25 MG CAPSULE (FP) PO SCH ×5 (05:54→23:11)
[2021-02-19] MEDS: LORazepam 2 MG TABLET PO SCH ×4 (05:54→22:22)
[2021-02-19] MEDS: guaiFENesin 200 MG/10 ML 10 ML UNIT-DOSE CUPS PO PRN ×3 (05:55→22:21)
[2021-02-19] MEDS: PRENATAL VITAMINS W/ FOLIC ACID TABLET (FP) PO SCH (10:08)
[2021-02-19] MEDS: NICOTINE 21 MG/24 HOURS TOPICAL PATCH TD SCH (10:09)
[2021-02-19] MEDS: NICOTINE POLACRILEX 4 MG GUM BC PRN ×4 (10:09→22:21)
[2021-02-19] MEDS: QUEtiapine FUMARATE 400 MG TABLET PO SCH ×2 (12:01→22:22)
[2021-02-19] MEDS: BICTEGRAV/EMTRICIT/TENOFOV (BIKTARVY) 50-200-25 MG TABLET PO SCH (14:43)
[2021-02-19] MEDS: THIAMINE HCL 100 MG TABLET (FP) PO SCH (22:22)
[2021-02-19] MEDS: MELATONIN 5 MG TABLETS PO SCH (23:11)
[2021-02-20] MEDS: NICOTINE POLACRILEX 4 MG GUM BC PRN ×5 (01:28→22:21)
[2021-02-20] MEDS: hydrOXYzine PAMOATE 25 MG CAPSULE (FP) PO SCH ×5 (05:38→22:20)
[2021-02-20] MEDS: LORazepam 1 MG TABLET PO SCH ×4 (05:38→22:19)
[2021-02-20] MEDS: guaiFENesin 200 MG/10 ML 10 ML UNIT-DOSE CUPS PO PRN (05:39)
[2021-02-20] MEDS ORDERED: AZITHROMYCIN 250 MG TABLET PO ONE (10:00)
[2021-02-20] MEDS: QUEtiapine FUMARATE 400 MG TABLET PO SCH ×2 (10:03→22:20)
[2021-02-20] MEDS: BICTEGRAV/EMTRICIT/TENOFOV (BIKTARVY) 50-200-25 MG TABLET PO SCH (10:03)
[2021-02-20] MEDS: PRENATAL VITAMINS W/ FOLIC ACID TABLET (FP) PO SCH (10:03)
[2021-02-20] MEDS: NICOTINE 21 MG/24 HOURS TOPICAL PATCH TD SCH (10:03)
[2021-02-20] MEDS: LOPERAMIDE HCL 2 MG CAPSULE PO PRN (17:47)
[2021-02-20] MEDS: THIAMINE HCL 100 MG TABLET (FP) PO SCH (22:19)
[2021-02-20] MEDS: MELATONIN 5 MG TABLETS PO SCH (22:20)
[2021-02-21] MEDS ORDERED: LORazepam 0.5 MG TABLET PO PRN
[2021-02-21] MEDS: hydrOXYzine PAMOATE 25 MG CAPSULE (FP) PO SCH ×5 (05:54→22:24)
[2021-02-21] MEDS: LORazepam 0.5 MG TABLET PO SCH ×4 (05:55→22:23)
[2021-02-21] MEDS: NICOTINE POLACRILEX 4 MG GUM BC PRN ×5 (05:55→22:24)
[2021-02-21] MEDS ORDERED: AZITHROMYCIN 250 MG TABLET PO SCH (10:00)
[2021-02-21] MEDS: QUEtiapine FUMARATE 400 MG TABLET PO SCH ×2 (10:14→22:24)
[2021-02-21] MEDS: PRENATAL VITAMINS W/ FOLIC ACID TABLET (FP) PO SCH (10:14)
[2021-02-21] MEDS: BICTEGRAV/EMTRICIT/TENOFOV (BIKTARVY) 50-200-25 MG TABLET PO SCH (10:16)
[2021-02-21] MEDS: NICOTINE 21 MG/24 HOURS TOPICAL PATCH TD SCH (10:16)
[2021-02-21] MEDS: THIAMINE HCL 100 MG TABLET (FP) PO SCH (22:24)
[2021-02-21] MEDS: MELATONIN 5 MG TABLETS PO SCH (22:24)
[2021-02-21] MEDS: guaiFENesin 200 MG/10 ML 10 ML UNIT-DOSE CUPS PO PRN (22:25)
[2021-02-22] MEDS ORDERED: LORazepam 0.5 MG TABLET PO ONE (05:00)
[2021-02-22] MEDS: LOPERAMIDE HCL 2 MG CAPSULE PO PRN (06:22)
[2021-02-22] MEDS: NICOTINE POLACRILEX 4 MG GUM BC PRN ×2 (06:22→09:10)
[2021-02-22] MEDS: hydrOXYzine PAMOATE 25 MG CAPSULE (FP) PO SCH (06:22)
[2021-02-22 09:49] VITALS: BP 136/76; PULSE 109; TEMP 98.2
== END 2021-02-22 10:00 | disposition other institution (70) | DRG 897 ==
LOC: YASAS 11:58 → Y6N 17:13
PROVIDERS: ADMIT Allergy & Immunology; ATTEND Allergy & Immunology
PROC: HZ2ZZZZ Detoxification Services for Substance Abuse Treatment (ICD-10-PCS; principal; 2021-02-18)
DX: F10.230 Alcohol dependence with withdrawal, uncomplicated (principal); F14.20 Cocaine dependence, uncomplicated; F19.280 Other psychoactive substance dependence with psychoactive substance-induced anxiety disorder; F19.282 Other psychoactive substance dependence with psychoactive substance-induced sleep disorder; F20.1 Disorganized schizophrenia; F19.24 Other psychoactive substance dependence with psychoactive substance-induced mood disorder; F17.210 Nicotine dependence, cigarettes, uncomplicated; J40 Bronchitis, not specified as acute or chronic; Z62.810 Personal history of physical and sexual abuse in childhood; Z88.8 Allergy status to other drugs, medicaments and biological substances
CPT/HCPCS: 36415; 71046-TC-FY; 80053; 82962; 85027; 86780; C9803; U0003; U0005

== ENCOUNTER 2021-06-04 09:25 | Inpatient (IN) | payer OTHER ==
[2021-06-04 13:34] VITALS: BMI 28.3
[2021-06-04] MEDS ORDERED: MENTHOL/PHENOL 1 EACH UD MM PRN (14:36)
[2021-06-04] MEDS ORDERED: BISMUTH SUBSALICYLATE 524 MG/30 ML PO PRN (14:36)
[2021-06-04] MEDS ORDERED: hydrOXYzine PAMOATE 25 MG CAPSULE (FP) PO PRN (14:36)
[2021-06-04] MEDS ORDERED: MAG HYDROX/AL HYDROX/SIMETH 30 ML UNIT-DOSE CUP PO PRN (14:36)
[2021-06-04] MEDS ORDERED: LORazepam 1 MG TABLET PO PRN (14:36)
[2021-06-04] MEDS ORDERED: ACETAMINOPHEN 325 MG TABLET (FP) PO PRN ×2 (14:36)
[2021-06-04] MEDS ORDERED: MAGNESIUM CITRATE 300 ML BOTTLE PO PRN (14:36)
[2021-06-04] MEDS ORDERED: MAGNESIUM HYDROX 2400MG/30ML ORAL SUSPENSION 30 ML CUP PO PRN (14:36)
[2021-06-04] MEDS ORDERED: ONDANSETRON *ODT* 4 MG TABLET SL PRN (14:36)
[2021-06-04] MEDS: NICOTINE POLACRILEX 4 MG GUM BUC PRN ×2 (15:23→22:57)
[2021-06-04] MEDS: NICOTINE 10 MG CARTRIDGE (INHALER) IH PRN (15:37)
[2021-06-04 16:46] LABS: HEMOGLOBIN 12.8 GM/dL (11.7-16.9); MCH 30.3 pg (25.7-33.7); MCHC 33.7 g/dl (32.0-35.9); MEAN CELL VOLUME 90.1 fl (80-96); MEAN PLT VOLUME 7.6 fl (7.5-11.1); PLATELET COUNT 253 10^3/uL (134-434); RBC 4.22 M/mm3 (4.00-5.60); RDW 13.3 % (11.9-15.9); WHITE BLOOD COUNT 4.9 K/mm3 (4.0-10.0)
[2021-06-04 16:58] LABS: CALCIUM 8.6 mg/dL (8.5-10.1)
[2021-06-04 16:59] LABS: ALBUMIN 3.6 g/dl (3.4-5.0); BLOOD UREA NITROGEN 11.9 mg/dL (7-18)
[2021-06-04 17:02] LABS: CREATININE 1.1 mg/dL (0.55-1.3)
[2021-06-04 17:03] LABS: BILIRUBIN,TOTAL 0.5 mg/dL (0.2-1); TOT PROT 8.8 g/dl (6.4-8.2)
[2021-06-04] MEDS: LORazepam 2 MG TABLET PO SCH ×2 (17:50→22:13)
[2021-06-04] MEDS ORDERED: MELATONIN 5 MG TABLETS PO SCH (22:00)
[2021-06-04] MEDS ORDERED: LOPERAMIDE HCL 2 MG PO SCH (22:00)
[2021-06-04] MEDS: QUEtiapine FUMARATE 400 MG TABLET PO SCH (22:13)
[2021-06-04] MEDS: THIAMINE HCL 100 MG TABLET (FP) PO SCH (22:13)
[2021-06-05] MEDS: LORazepam 2 MG TABLET PO SCH ×4 (06:26→23:05)
[2021-06-05] MEDS: IBUPROFEN 400 MG TABLET (FP) PO PRN ×3 (06:29→23:07)
[2021-06-05] MEDS: NICOTINE POLACRILEX 4 MG GUM BUC PRN ×7 (06:33→23:09)
[2021-06-05] MEDS ORDERED: PATIENT'S OWN MEDICATION (NON-FORMULARY) (Dolutegravir Sodium/Lamivudine [Dovato 50-300 Mg PO SCH (10:00)
[2021-06-05] MEDS: PRENATAL VITAMINS W/ FOLIC ACID TABLET (FP) PO SCH (10:38)
[2021-06-05] MEDS: DOLUTEGRAVIR SODIUM 50 MG TABLET (NON-FORMULARY) PO SCH ×2 (11:29→14:41)
[2021-06-05] MEDS ORDERED: QUEtiapine FUMARATE 400 MG TABLET PO ONE (12:00)
[2021-06-05 12:44] LABS: HIV INTERPRETATION PRESUMPTIVE POSITIVE (NEGATIVE)
[2021-06-05] MEDS: THIAMINE HCL 100 MG TABLET (FP) PO SCH (23:05)
[2021-06-05] MEDS: QUEtiapine FUMARATE 400 MG TABLET PO SCH (23:05)
[2021-06-06] MEDS: LORazepam 1 MG TABLET PO SCH ×4 (06:22→22:49)
[2021-06-06] MEDS: NICOTINE POLACRILEX 4 MG GUM BUC PRN ×6 (08:24→22:52)
[2021-06-06] MEDS: PRENATAL VITAMINS W/ FOLIC ACID TABLET (FP) PO SCH (10:34)
[2021-06-06] MEDS: METHOCARBAMOL 500 MG TABLET PO PRN ×2 (10:34→22:51)
[2021-06-06] MEDS: IBUPROFEN 400 MG TABLET (FP) PO PRN ×2 (10:34→22:48)
[2021-06-06] MEDS: QUEtiapine FUMARATE 400 MG TABLET PO SCH ×2 (11:14→22:49)
[2021-06-06] MEDS: DOLUTEGRAVIR SODIUM 50 MG TABLET (NON-FORMULARY) PO SCH (14:28)
[2021-06-06] MEDS: THIAMINE HCL 100 MG TABLET (FP) PO SCH (22:49)
[2021-06-07] MEDS ORDERED: LORazepam 0.5 MG TABLET PO PRN
[2021-06-07] MEDS: LORazepam 0.5 MG TABLET PO SCH ×4 (07:17→22:28)
[2021-06-07] MEDS: NICOTINE POLACRILEX 4 MG GUM BUC PRN ×7 (07:25→22:29)
[2021-06-07] MEDS: QUEtiapine FUMARATE 400 MG TABLET PO SCH ×2 (10:22→22:28)
[2021-06-07] MEDS: PRENATAL VITAMINS W/ FOLIC ACID TABLET (FP) PO SCH (10:22)
[2021-06-07] MEDS: IBUPROFEN 400 MG TABLET (FP) PO PRN ×2 (10:24→18:14)
[2021-06-07] MEDS: NICOTINE 10 MG CARTRIDGE (INHALER) IH PRN ×2 (10:28→22:35)
[2021-06-07] MEDS ORDERED: LOPERAMIDE HCL 2 MG CAPSULE PO PRN (14:59)
[2021-06-07] MEDS: DOLUTEGRAVIR SODIUM 50 MG TABLET (NON-FORMULARY) PO SCH (18:11)
[2021-06-07] MEDS: THIAMINE HCL 100 MG TABLET (FP) PO SCH (22:28)
[2021-06-08] MEDS ORDERED: LORazepam 0.5 MG TABLET PO ONE (05:00)
[2021-06-08] MEDS: NICOTINE POLACRILEX 4 MG GUM BUC PRN ×2 (06:51→09:26)
[2021-06-08] MEDS: DOLUTEGRAVIR SODIUM 50 MG TABLET (NON-FORMULARY) PO SCH (09:30)
[2021-06-08] MEDS: QUEtiapine FUMARATE 400 MG TABLET PO SCH (09:33)
[2021-06-08] MEDS: PRENATAL VITAMINS W/ FOLIC ACID TABLET (FP) PO SCH (09:33)
[2021-06-08 09:39] VITALS: BP 139/89; PULSE 113; TEMP 98.2
== END 2021-06-08 09:46 | disposition home or self-care (01) | DRG 897 ==
LOC: YASAS 09:25 → Y6N 14:44 → Y3N 06-05 18:26
PROVIDERS: ADMIT Allergy & Immunology; ATTEND Allergy & Immunology
PROC: HZ2ZZZZ Detoxification Services for Substance Abuse Treatment (ICD-10-PCS; principal; 2021-06-04)
DX: F10.230 Alcohol dependence with withdrawal, uncomplicated (principal); F14.20 Cocaine dependence, uncomplicated; F20.0 Paranoid schizophrenia; F19.282 Other psychoactive substance dependence with psychoactive substance-induced sleep disorder; F19.280 Other psychoactive substance dependence with psychoactive substance-induced anxiety disorder; F12.10 Cannabis abuse, uncomplicated; F17.210 Nicotine dependence, cigarettes, uncomplicated; F43.10 Post-traumatic stress disorder, unspecified; F19.24 Other psychoactive substance dependence with psychoactive substance-induced mood disorder; F32.9 Major depressive disorder, single episode, unspecified; Z21 Asymptomatic human immunodeficiency virus [HIV] infection status; G47.00 Insomnia, unspecified; M25.562 Pain in left knee; R73.9 Hyperglycemia, unspecified; Z62.810 Personal history of physical and sexual abuse in childhood; Z88.8 Allergy status to other drugs, medicaments and biological substances; Z91.5 Personal history of self-harm; Z87.19 Personal history of other diseases of the digestive system
CPT/HCPCS: 36415; 73562-TC-LT-FY; 80053; 85027; 86780; 87389; C9803; U0003; U0005

== ENCOUNTER 2021-12-18 09:41 | Inpatient (IN) | payer OTHER ==
[2021-12-18 10:25] VITALS: BMI 25.7
[2021-12-18] MEDS ORDERED: MAG HYDROX/AL HYDROX/SIMETH 30 ML UNIT-DOSE CUP PO PRN (11:01)
[2021-12-18] MEDS ORDERED: MAGNESIUM HYDROX 2400MG/30ML ORAL SUSPENSION 30 ML CUP PO PRN (11:01)
[2021-12-18] MEDS ORDERED: ONDANSETRON *ODT* 4 MG TABLET SL PRN (11:01)
[2021-12-18] MEDS ORDERED: BISMUTH SUBSALICYLATE 262 MG/15 ML BTL PO PRN (11:01)
[2021-12-18] MEDS ORDERED: MAGNESIUM CITRATE 300 ML BOTTLE PO PRN (11:01)
[2021-12-18] MEDS ORDERED: MENTHOL/PHENOL 1 EACH UD MM PRN (11:01)
[2021-12-18] MEDS ORDERED: diazePAM 5 MG TABLET PO PRN (11:01)
[2021-12-18] MEDS ORDERED: METHOCARBAMOL 500 MG TABLET PO PRN (11:01)
[2021-12-18] MEDS ORDERED: ACETAMINOPHEN 325 MG TABLET (FP) PO PRN (11:01)
[2021-12-18] MEDS ORDERED: DICYCLOMINE HCL 10 MG CAPSULE PO PRN (11:01)
[2021-12-18] MEDS: diazePAM 5 MG TABLET PO SCH ×3 (13:14→22:26)
[2021-12-18] MEDS: NICOTINE 21 MG/24 HOURS TOPICAL PATCH TD SCH (13:18)
[2021-12-18] MEDS: PRENATAL VITAMINS W/ FOLIC ACID TABLET (FP) PO SCH (13:18)
[2021-12-18 13:20] LABS: HEMATOCRIT 38.4 % (35.4-49); HEMOGLOBIN 12.7 GM/dL (11.7-16.9); MCH 29.7 pg (25.7-33.7); PLATELET COUNT 272 10^3/uL (134-434); RBC 4.27 M/mm3 (4.00-5.60)
[2021-12-18 13:24] LABS: BLOOD UREA NITROGEN 17.5 mg/dL (7-18); CALCIUM 8.9 mg/dL (8.5-10.1)
[2021-12-18 13:28] LABS: CREATININE 1.3 mg/dL (0.55-1.3)
[2021-12-18 13:29] LABS: BILIRUBIN,TOTAL 0.5 mg/dL (0.2-1); TOT PROT 7.7 g/dl (6.4-8.2)
[2021-12-18] MEDS ORDERED: hydrOXYzine PAMOATE 25 MG CAPSULE (FP) PO SCH (14:00)
[2021-12-18] MEDS ORDERED: hydrOXYzine PAMOATE 25 MG CAPSULE (FP) PO PRN (15:50)
[2021-12-18] MEDS: NICOTINE POLACRILEX 4 MG GUM BUC PRN ×2 (15:54→19:02)
[2021-12-18] MEDS: NICOTINE 10 MG CARTRIDGE (INHALER) IH PRN (19:03)
[2021-12-18] MEDS ORDERED: MELATONIN 5 MG TABLETS PO SCH (22:00)
[2021-12-18] MEDS: QUEtiapine FUMARATE 200 MG TABLET PO SCH (22:26)
[2021-12-18] MEDS: THIAMINE HCL 100 MG TABLET (FP) PO SCH (22:26)
[2021-12-19] MEDS: diazePAM 5 MG TABLET PO SCH ×4 (06:26→22:28)
[2021-12-19] MEDS: NICOTINE POLACRILEX 4 MG GUM BUC PRN ×3 (06:27→17:29)
[2021-12-19] MEDS: NICOTINE 21 MG/24 HOURS TOPICAL PATCH TD SCH (10:14)
[2021-12-19] MEDS: PRENATAL VITAMINS W/ FOLIC ACID TABLET (FP) PO SCH (10:14)
[2021-12-19] MEDS: QUEtiapine FUMARATE 200 MG TABLET PO SCH ×2 (10:14→22:28)
[2021-12-19] MEDS: NICOTINE 10 MG CARTRIDGE (INHALER) IH PRN (10:15)
[2021-12-19] MEDS: THIAMINE HCL 100 MG TABLET (FP) PO SCH (22:28)
[2021-12-20] MEDS: diazePAM 5 MG TABLET PO SCH ×3 (07:03→22:10)
[2021-12-20] MEDS: NICOTINE POLACRILEX 4 MG GUM BUC PRN ×5 (07:30→20:09)
[2021-12-20] MEDS: QUEtiapine FUMARATE 200 MG TABLET PO SCH ×2 (10:17→22:10)
[2021-12-20] MEDS: NICOTINE 21 MG/24 HOURS TOPICAL PATCH TD SCH (10:19)
[2021-12-20] MEDS: PRENATAL VITAMINS W/ FOLIC ACID TABLET (FP) PO SCH (10:19)
[2021-12-20] MEDS: CLOTRIMAZOLE 1% CREAM TP SCH ×2 (14:24→22:10)
[2021-12-20] MEDS: THIAMINE HCL 100 MG TABLET (FP) PO SCH (22:10)
[2021-12-21 00:06] LABS: SARS-CoV-2 NAA Not Detected (Not Detected)
[2021-12-21] MEDS: diazePAM 5 MG TABLET PO SCH ×2 (06:02→17:35)
[2021-12-21] MEDS: NICOTINE POLACRILEX 4 MG GUM BUC PRN ×4 (08:03→20:13)
[2021-12-21] MEDS: CLOTRIMAZOLE 1% CREAM TP SCH ×2 (10:07→21:58)
[2021-12-21] MEDS: QUEtiapine FUMARATE 200 MG TABLET PO SCH ×2 (10:07→21:59)
[2021-12-21] MEDS: NICOTINE 21 MG/24 HOURS TOPICAL PATCH TD SCH (10:08)
[2021-12-21] MEDS: PRENATAL VITAMINS W/ FOLIC ACID TABLET (FP) PO SCH (10:08)
[2021-12-21] MEDS ORDERED: PATIENT'S OWN MEDICATION (NON-FORMULARY) (Dolutegravir Sodium/Lamivudine [Dovato 50-300 Mg PO SCH (15:30)
[2021-12-21] MEDS: DOLUTEGRAVIR SODIUM 50 MG TABLET (NON-FORMULARY) PO SCH (17:36)
[2021-12-21] MEDS: NICOTINE 10 MG CARTRIDGE (INHALER) IH PRN (17:38)
[2021-12-21] MEDS: THIAMINE HCL 100 MG TABLET (FP) PO SCH (21:59)
[2021-12-22] MEDS ORDERED: diazePAM 5 MG TABLET PO ONE (06:00)
[2021-12-22] MEDS: DOLUTEGRAVIR SODIUM 50 MG TABLET (NON-FORMULARY) PO SCH (07:10)
[2021-12-22] MEDS: NICOTINE POLACRILEX 4 MG GUM BUC PRN ×4 (07:12→17:21)
[2021-12-22] MEDS: QUEtiapine FUMARATE 200 MG TABLET PO SCH ×2 (10:12→21:44)
[2021-12-22] MEDS: PRENATAL VITAMINS W/ FOLIC ACID TABLET (FP) PO SCH (10:12)
[2021-12-22] MEDS: CLOTRIMAZOLE 1% CREAM TP SCH ×2 (10:13→22:57)
[2021-12-22] MEDS: NICOTINE 21 MG/24 HOURS TOPICAL PATCH TD SCH (10:32)
[2021-12-22] MEDS: THIAMINE HCL 100 MG TABLET (FP) PO SCH (21:44)
[2021-12-22] MEDS: IBUPROFEN 400 MG TABLET (FP) PO PRN (21:45)
[2021-12-23] MEDS: NICOTINE POLACRILEX 4 MG GUM BUC PRN ×5 (06:33→17:39)
[2021-12-23] MEDS: CLOTRIMAZOLE 1% CREAM TP SCH ×2 (09:48→21:28)
[2021-12-23] MEDS: QUEtiapine FUMARATE 200 MG TABLET PO SCH ×2 (09:48→21:26)
[2021-12-23] MEDS: PRENATAL VITAMINS W/ FOLIC ACID TABLET (FP) PO SCH (09:48)
[2021-12-23] MEDS: NICOTINE 21 MG/24 HOURS TOPICAL PATCH TD SCH (09:48)
[2021-12-23] MEDS: DOLUTEGRAVIR SODIUM 50 MG TABLET (NON-FORMULARY) PO SCH (09:49)
[2021-12-23] MEDS: THIAMINE HCL 100 MG TABLET (FP) PO SCH (21:26)
[2021-12-24] MEDS: NICOTINE POLACRILEX 4 MG GUM BUC PRN ×4 (06:32→18:08)
[2021-12-24] MEDS: DOLUTEGRAVIR SODIUM 50 MG TABLET (NON-FORMULARY) PO SCH (07:10)
[2021-12-24] MEDS: PRENATAL VITAMINS W/ FOLIC ACID TABLET (FP) PO SCH (09:52)
[2021-12-24] MEDS: QUEtiapine FUMARATE 200 MG TABLET PO SCH ×2 (09:52→21:28)
[2021-12-24] MEDS: NICOTINE 21 MG/24 HOURS TOPICAL PATCH TD SCH (09:53)
[2021-12-24] MEDS: CLOTRIMAZOLE 1% CREAM TP SCH ×2 (09:54→21:29)
[2021-12-24] MEDS: SULFAMETHOXAZOLE/TRIMETHOPRIM 800MG/160MG D.S. TABLET PO SCH (11:55)
[2021-12-24] MEDS: IBUPROFEN 400 MG TABLET (FP) PO PRN (21:27)
[2021-12-24] MEDS: THIAMINE HCL 100 MG TABLET (FP) PO SCH (21:27)
[2021-12-25] MEDS: IBUPROFEN 400 MG TABLET (FP) PO PRN ×2 (06:30→21:10)
[2021-12-25] MEDS: NICOTINE POLACRILEX 4 MG GUM BUC PRN ×6 (06:31→19:26)
[2021-12-25] MEDS: DOLUTEGRAVIR SODIUM 50 MG TABLET (NON-FORMULARY) PO SCH (07:08)
[2021-12-25] MEDS: SULFAMETHOXAZOLE/TRIMETHOPRIM 800MG/160MG D.S. TABLET PO SCH (09:23)
[2021-12-25] MEDS: NICOTINE 21 MG/24 HOURS TOPICAL PATCH TD SCH (09:24)
[2021-12-25] MEDS: PRENATAL VITAMINS W/ FOLIC ACID TABLET (FP) PO SCH (09:24)
[2021-12-25] MEDS: CLOTRIMAZOLE 1% CREAM TP SCH ×2 (09:24→21:36)
[2021-12-25] MEDS: QUEtiapine FUMARATE 200 MG TABLET PO SCH ×2 (09:25→21:09)
[2021-12-25] MEDS: THIAMINE HCL 100 MG TABLET (FP) PO SCH (21:08)
[2021-12-26] MEDS: NICOTINE POLACRILEX 4 MG GUM BUC PRN ×6 (06:46→21:38)
[2021-12-26] MEDS: DOLUTEGRAVIR SODIUM 50 MG TABLET (NON-FORMULARY) PO SCH (07:42)
[2021-12-26] MEDS: NICOTINE 21 MG/24 HOURS TOPICAL PATCH TD SCH (09:40)
[2021-12-26] MEDS: PRENATAL VITAMINS W/ FOLIC ACID TABLET (FP) PO SCH (09:41)
[2021-12-26] MEDS: QUEtiapine FUMARATE 200 MG TABLET PO SCH ×2 (09:41→21:03)
[2021-12-26] MEDS: SULFAMETHOXAZOLE/TRIMETHOPRIM 800MG/160MG D.S. TABLET PO SCH (09:41)
[2021-12-26] MEDS: CLOTRIMAZOLE 1% CREAM TP SCH ×2 (09:43→21:03)
[2021-12-26] MEDS: THIAMINE HCL 100 MG TABLET (FP) PO SCH (21:03)
[2021-12-27] MEDS: NICOTINE POLACRILEX 4 MG GUM BUC PRN ×6 (06:35→22:25)
[2021-12-27] MEDS: DOLUTEGRAVIR SODIUM 50 MG TABLET (NON-FORMULARY) PO SCH (07:15)
[2021-12-27] MEDS: SULFAMETHOXAZOLE/TRIMETHOPRIM 800MG/160MG D.S. TABLET PO SCH (10:00)
[2021-12-27] MEDS: QUEtiapine FUMARATE 200 MG TABLET PO SCH ×2 (10:00→21:32)
[2021-12-27] MEDS: CLOTRIMAZOLE 1% CREAM TP SCH ×2 (10:01→21:32)
[2021-12-27] MEDS: NICOTINE 21 MG/24 HOURS TOPICAL PATCH TD SCH (10:01)
[2021-12-27] MEDS: PRENATAL VITAMINS W/ FOLIC ACID TABLET (FP) PO SCH (10:01)
[2021-12-27 16:07] LABS: SARS-CoV-2 NAA Not Detected (Not Detected)
[2021-12-27] MEDS: THIAMINE HCL 100 MG TABLET (FP) PO SCH (21:32)
[2021-12-28] MEDS: IBUPROFEN 400 MG TABLET (FP) PO PRN ×2 (06:46→16:57)
[2021-12-28] MEDS: NICOTINE POLACRILEX 4 MG GUM BUC PRN ×5 (06:48→17:30)
[2021-12-28] MEDS: DOLUTEGRAVIR SODIUM 50 MG TABLET (NON-FORMULARY) PO SCH (07:35)
[2021-12-28] MEDS: CLOTRIMAZOLE 1% CREAM TP SCH ×2 (09:12→21:33)
[2021-12-28] MEDS: PRENATAL VITAMINS W/ FOLIC ACID TABLET (FP) PO SCH (09:12)
[2021-12-28] MEDS: NICOTINE 21 MG/24 HOURS TOPICAL PATCH TD SCH (09:12)
[2021-12-28] MEDS: SULFAMETHOXAZOLE/TRIMETHOPRIM 800MG/160MG D.S. TABLET PO SCH (09:12)
[2021-12-28] MEDS: QUEtiapine FUMARATE 200 MG TABLET PO SCH ×2 (09:13→21:05)
[2021-12-28] MEDS: THIAMINE HCL 100 MG TABLET (FP) PO SCH (21:05)
[2021-12-29] MEDS: IBUPROFEN 400 MG TABLET (FP) PO PRN ×2 (03:08→09:45)
[2021-12-29] MEDS: NICOTINE POLACRILEX 4 MG GUM BUC PRN ×5 (06:39→17:20)
[2021-12-29] MEDS: DOLUTEGRAVIR SODIUM 50 MG TABLET (NON-FORMULARY) PO SCH (07:11)
[2021-12-29] MEDS: QUEtiapine FUMARATE 200 MG TABLET PO SCH ×2 (09:44→21:18)
[2021-12-29] MEDS: PRENATAL VITAMINS W/ FOLIC ACID TABLET (FP) PO SCH (09:44)
[2021-12-29] MEDS: SULFAMETHOXAZOLE/TRIMETHOPRIM 800MG/160MG D.S. TABLET PO SCH (09:44)
[2021-12-29] MEDS: CLOTRIMAZOLE 1% CREAM TP SCH ×2 (09:44→21:18)
[2021-12-29] MEDS: NICOTINE 21 MG/24 HOURS TOPICAL PATCH TD SCH (09:44)
[2021-12-29] MEDS: LIDOCAINE 5% TOPICAL PATCH TP SCH (12:01)
[2021-12-29] MEDS: THIAMINE HCL 100 MG TABLET (FP) PO SCH (21:17)
[2021-12-29] MEDS: LIDOCAINE PATCH REMOVAL MC SCH (21:18)
[2021-12-29] MEDS: METHOCARBAMOL 500 MG TABLET PO SCH (21:19)
[2021-12-30] MEDS: IBUPROFEN 400 MG TABLET (FP) PO PRN ×3 (06:16→21:35)
[2021-12-30] MEDS: DOLUTEGRAVIR SODIUM 50 MG TABLET (NON-FORMULARY) PO SCH (07:03)
[2021-12-30] MEDS: SULFAMETHOXAZOLE/TRIMETHOPRIM 800MG/160MG D.S. TABLET PO SCH (10:04)
[2021-12-30] MEDS: LIDOCAINE 5% TOPICAL PATCH TP SCH (10:04)
[2021-12-30] MEDS: CLOTRIMAZOLE 1% CREAM TP SCH ×2 (10:05→21:40)
[2021-12-30] MEDS: NICOTINE 21 MG/24 HOURS TOPICAL PATCH TD SCH (10:05)
[2021-12-30] MEDS: QUEtiapine FUMARATE 200 MG TABLET PO SCH ×2 (10:06→21:34)
[2021-12-30] MEDS: PRENATAL VITAMINS W/ FOLIC ACID TABLET (FP) PO SCH (10:06)
[2021-12-30] MEDS: NICOTINE POLACRILEX 4 MG GUM BUC PRN ×3 (10:07→16:32)
[2021-12-30] MEDS: THIAMINE HCL 100 MG TABLET (FP) PO SCH (21:34)
[2021-12-30] MEDS: METHOCARBAMOL 500 MG TABLET PO SCH (21:36)
[2021-12-30] MEDS: LIDOCAINE PATCH REMOVAL MC SCH (21:40)
[2021-12-31] MEDS: IBUPROFEN 400 MG TABLET (FP) PO PRN ×2 (06:32→21:27)
[2021-12-31] MEDS: NICOTINE POLACRILEX 4 MG GUM BUC PRN ×6 (06:32→19:02)
[2021-12-31] MEDS: DOLUTEGRAVIR SODIUM 50 MG TABLET (NON-FORMULARY) PO SCH (07:07)
[2021-12-31] MEDS: CLOTRIMAZOLE 1% CREAM TP SCH ×2 (09:02→21:29)
[2021-12-31] MEDS: LIDOCAINE 5% TOPICAL PATCH TP SCH (09:02)
[2021-12-31] MEDS: SULFAMETHOXAZOLE/TRIMETHOPRIM 800MG/160MG D.S. TABLET PO SCH (09:02)
[2021-12-31] MEDS: PRENATAL VITAMINS W/ FOLIC ACID TABLET (FP) PO SCH (09:03)
[2021-12-31] MEDS: NICOTINE 21 MG/24 HOURS TOPICAL PATCH TD SCH (09:03)
[2021-12-31] MEDS: QUEtiapine FUMARATE 200 MG TABLET PO SCH ×2 (09:04→21:26)
[2021-12-31] MEDS: NICOTINE 10 MG CARTRIDGE (INHALER) IH PRN (11:59)
[2021-12-31] MEDS: LIDOCAINE PATCH REMOVAL MC SCH (21:24)
[2021-12-31] MEDS: THIAMINE HCL 100 MG TABLET (FP) PO SCH (21:26)
[2021-12-31] MEDS: METHOCARBAMOL 500 MG TABLET PO SCH (21:27)
[2022-01-01] MEDS: IBUPROFEN 400 MG TABLET (FP) PO PRN ×2 (06:39→21:46)
[2022-01-01] MEDS: NICOTINE POLACRILEX 4 MG GUM BUC PRN ×6 (06:41→21:48)
[2022-01-01] MEDS: DOLUTEGRAVIR SODIUM 50 MG TABLET (NON-FORMULARY) PO SCH (07:13)
[2022-01-01] MEDS: SULFAMETHOXAZOLE/TRIMETHOPRIM 800MG/160MG D.S. TABLET PO SCH (10:10)
[2022-01-01] MEDS: PRENATAL VITAMINS W/ FOLIC ACID TABLET (FP) PO SCH (10:10)
[2022-01-01] MEDS: LIDOCAINE 5% TOPICAL PATCH TP SCH (10:10)
[2022-01-01] MEDS: QUEtiapine FUMARATE 200 MG TABLET PO SCH ×2 (10:10→21:46)
[2022-01-01] MEDS: NICOTINE 21 MG/24 HOURS TOPICAL PATCH TD SCH (10:11)
[2022-01-01] MEDS: ACETAMINOPHEN 325 MG TABLET (FP) PO PRN (10:11)
[2022-01-01] MEDS: CLOTRIMAZOLE 1% CREAM TP SCH ×2 (10:11→21:08)
[2022-01-01] MEDS: THIAMINE HCL 100 MG TABLET (FP) PO SCH (21:46)
[2022-01-01] MEDS: METHOCARBAMOL 500 MG TABLET PO SCH (21:46)
[2022-01-01] MEDS: LIDOCAINE PATCH REMOVAL MC SCH (21:50)
[2022-01-02] MEDS: NICOTINE POLACRILEX 4 MG GUM BUC PRN ×4 (04:47→21:04)
[2022-01-02] MEDS: DOLUTEGRAVIR SODIUM 50 MG TABLET (NON-FORMULARY) PO SCH (07:03)
[2022-01-02] MEDS: IBUPROFEN 400 MG TABLET (FP) PO PRN ×2 (07:05→21:04)
[2022-01-02] MEDS: SULFAMETHOXAZOLE/TRIMETHOPRIM 800MG/160MG D.S. TABLET PO SCH (09:42)
[2022-01-02] MEDS: QUEtiapine FUMARATE 200 MG TABLET PO SCH ×2 (09:42→21:05)
[2022-01-02] MEDS: NICOTINE 21 MG/24 HOURS TOPICAL PATCH TD SCH (09:43)
[2022-01-02] MEDS: PRENATAL VITAMINS W/ FOLIC ACID TABLET (FP) PO SCH (09:43)
[2022-01-02] MEDS: LIDOCAINE 5% TOPICAL PATCH TP SCH (09:44)
[2022-01-02] MEDS: CLOTRIMAZOLE 1% CREAM TP SCH ×2 (09:44→21:06)
[2022-01-02] MEDS: METHOCARBAMOL 500 MG TABLET PO SCH (21:04)
[2022-01-02] MEDS: THIAMINE HCL 100 MG TABLET (FP) PO SCH (21:05)
[2022-01-02] MEDS: LIDOCAINE PATCH REMOVAL MC SCH (21:06)
[2022-01-03] MEDS: NICOTINE POLACRILEX 4 MG GUM BUC PRN ×5 (05:59→17:39)
[2022-01-03] MEDS: IBUPROFEN 400 MG TABLET (FP) PO PRN (07:02)
[2022-01-03] MEDS: DOLUTEGRAVIR SODIUM 50 MG TABLET (NON-FORMULARY) PO SCH (07:03)
[2022-01-03] MEDS: SULFAMETHOXAZOLE/TRIMETHOPRIM 800MG/160MG D.S. TABLET PO SCH (09:29)
[2022-01-03] MEDS: CLOTRIMAZOLE 1% CREAM TP SCH ×2 (09:29→21:58)
[2022-01-03] MEDS: LIDOCAINE 5% TOPICAL PATCH TP SCH (09:29)
[2022-01-03] MEDS: QUEtiapine FUMARATE 200 MG TABLET PO SCH ×2 (09:30→21:57)
[2022-01-03] MEDS: NICOTINE 21 MG/24 HOURS TOPICAL PATCH TD SCH (09:30)
[2022-01-03] MEDS: PRENATAL VITAMINS W/ FOLIC ACID TABLET (FP) PO SCH (09:30)
[2022-01-03] MEDS: LIDOCAINE PATCH REMOVAL MC SCH (21:03)
[2022-01-03] MEDS: THIAMINE HCL 100 MG TABLET (FP) PO SCH (21:03)
[2022-01-03] MEDS: ACETAMINOPHEN 325 MG TABLET (FP) PO PRN (21:56)
[2022-01-03] MEDS: METHOCARBAMOL 500 MG TABLET PO SCH (21:58)
[2022-01-04] MEDS: DOLUTEGRAVIR SODIUM 50 MG TABLET (NON-FORMULARY) PO SCH (07:02)
[2022-01-04] MEDS: SULFAMETHOXAZOLE/TRIMETHOPRIM 800MG/160MG D.S. TABLET PO SCH (09:47)
[2022-01-04] MEDS: LIDOCAINE 5% TOPICAL PATCH TP SCH (09:47)
[2022-01-04] MEDS: PRENATAL VITAMINS W/ FOLIC ACID TABLET (FP) PO SCH (09:47)
[2022-01-04] MEDS: IBUPROFEN 400 MG TABLET (FP) PO PRN ×2 (09:48→21:28)
[2022-01-04] MEDS: CLOTRIMAZOLE 1% CREAM TP SCH ×2 (09:48→22:10)
[2022-01-04] MEDS: NICOTINE 21 MG/24 HOURS TOPICAL PATCH TD SCH (09:48)
[2022-01-04] MEDS: QUEtiapine FUMARATE 400 MG TABLET PO SCH ×2 (12:22→21:28)
[2022-01-04] MEDS: QUEtiapine FUMARATE 200 MG TABLET PO SCH (12:30)
[2022-01-04] MEDS: NICOTINE POLACRILEX 4 MG GUM BUC PRN ×3 (14:22→21:31)
[2022-01-04] MEDS: METHOCARBAMOL 500 MG TABLET PO SCH (21:28)
[2022-01-04] MEDS: THIAMINE HCL 100 MG TABLET (FP) PO SCH (21:28)
[2022-01-04] MEDS: LIDOCAINE PATCH REMOVAL MC SCH (22:10)
[2022-01-05] MEDS: NICOTINE POLACRILEX 4 MG GUM BUC PRN ×5 (06:09→21:22)
[2022-01-05] MEDS: LOPERAMIDE HCL 2 MG CAPSULE PO PRN (06:48)
[2022-01-05] MEDS: DOLUTEGRAVIR SODIUM 50 MG TABLET (NON-FORMULARY) PO SCH (07:00)
[2022-01-05] MEDS: QUEtiapine FUMARATE 400 MG TABLET PO SCH ×2 (09:56→21:19)
[2022-01-05] MEDS: PRENATAL VITAMINS W/ FOLIC ACID TABLET (FP) PO SCH (09:56)
[2022-01-05] MEDS: SULFAMETHOXAZOLE/TRIMETHOPRIM 800MG/160MG D.S. TABLET PO SCH (09:56)
[2022-01-05] MEDS: CLOTRIMAZOLE 1% CREAM TP SCH ×2 (09:56→23:11)
[2022-01-05] MEDS: NICOTINE 21 MG/24 HOURS TOPICAL PATCH TD SCH (09:56)
[2022-01-05] MEDS: LIDOCAINE 5% TOPICAL PATCH TP SCH (09:56)
[2022-01-05] MEDS: IBUPROFEN 400 MG TABLET (FP) PO PRN (12:19)
[2022-01-05] MEDS: LIDOCAINE PATCH REMOVAL MC SCH (21:18)
[2022-01-05] MEDS: THIAMINE HCL 100 MG TABLET (FP) PO SCH (21:19)
[2022-01-05] MEDS: METHOCARBAMOL 500 MG TABLET PO SCH (21:19)
[2022-01-05] MEDS: ACETAMINOPHEN 325 MG TABLET (FP) PO PRN (21:20)
[2022-01-06] MEDS: NICOTINE POLACRILEX 4 MG GUM BUC PRN ×6 (06:22→21:09)
[2022-01-06] MEDS: DOLUTEGRAVIR SODIUM 50 MG TABLET (NON-FORMULARY) PO SCH (07:02)
[2022-01-06] MEDS: SULFAMETHOXAZOLE/TRIMETHOPRIM 800MG/160MG D.S. TABLET PO SCH (09:50)
[2022-01-06] MEDS: CLOTRIMAZOLE 1% CREAM TP SCH ×2 (09:50→21:09)
[2022-01-06] MEDS: LIDOCAINE 5% TOPICAL PATCH TP SCH (09:50)
[2022-01-06] MEDS: QUEtiapine FUMARATE 400 MG TABLET PO SCH ×2 (09:51→21:08)
[2022-01-06] MEDS: PRENATAL VITAMINS W/ FOLIC ACID TABLET (FP) PO SCH (09:51)
[2022-01-06] MEDS: NICOTINE 21 MG/24 HOURS TOPICAL PATCH TD SCH (09:51)
[2022-01-06] MEDS: IBUPROFEN 600 MG TABLET (FP) PO PRN (21:08)
[2022-01-06] MEDS: METHOCARBAMOL 500 MG TABLET PO SCH (21:08)
[2022-01-06] MEDS: NICOTINE 10 MG CARTRIDGE (INHALER) IH PRN (21:09)
[2022-01-06] MEDS: LIDOCAINE PATCH REMOVAL MC SCH (21:10)
[2022-01-06] MEDS: THIAMINE HCL 100 MG TABLET (FP) PO SCH (21:10)
[2022-01-07] MEDS: NICOTINE 10 MG CARTRIDGE (INHALER) IH PRN ×3 (06:25→21:29)
[2022-01-07] MEDS: NICOTINE POLACRILEX 4 MG GUM BUC PRN ×3 (06:26→12:06)
[2022-01-07] MEDS: DOLUTEGRAVIR SODIUM 50 MG TABLET (NON-FORMULARY) PO SCH (07:07)
[2022-01-07] MEDS: NICOTINE 21 MG/24 HOURS TOPICAL PATCH TD SCH (10:03)
[2022-01-07] MEDS: QUEtiapine FUMARATE 400 MG TABLET PO SCH ×2 (10:03→21:28)
[2022-01-07] MEDS: LIDOCAINE 5% TOPICAL PATCH TP SCH (10:03)
[2022-01-07] MEDS: CLOTRIMAZOLE 1% CREAM TP SCH ×2 (10:03→21:30)
[2022-01-07] MEDS: PRENATAL VITAMINS W/ FOLIC ACID TABLET (FP) PO SCH (10:03)
[2022-01-07] MEDS: SULFAMETHOXAZOLE/TRIMETHOPRIM 800MG/160MG D.S. TABLET PO SCH (10:03)
[2022-01-07] MEDS: THIAMINE HCL 100 MG TABLET (FP) PO SCH (21:27)
[2022-01-07] MEDS: IBUPROFEN 600 MG TABLET (FP) PO PRN (21:28)
[2022-01-07] MEDS: METHOCARBAMOL 500 MG TABLET PO SCH (21:28)
[2022-01-07] MEDS: LIDOCAINE PATCH REMOVAL MC SCH (21:29)
[2022-01-08] MEDS: NICOTINE POLACRILEX 4 MG GUM BUC PRN ×3 (06:08→18:08)
[2022-01-08] MEDS: NICOTINE 10 MG CARTRIDGE (INHALER) IH PRN ×3 (06:09→18:07)
[2022-01-08] MEDS: DOLUTEGRAVIR SODIUM 50 MG TABLET (NON-FORMULARY) PO SCH (07:05)
[2022-01-08] MEDS: SULFAMETHOXAZOLE/TRIMETHOPRIM 800MG/160MG D.S. TABLET PO SCH (09:40)
[2022-01-08] MEDS: CLOTRIMAZOLE 1% CREAM TP SCH ×2 (09:40→21:15)
[2022-01-08] MEDS: PRENATAL VITAMINS W/ FOLIC ACID TABLET (FP) PO SCH (09:42)
[2022-01-08] MEDS: NICOTINE 21 MG/24 HOURS TOPICAL PATCH TD SCH (09:42)
[2022-01-08] MEDS: LIDOCAINE 5% TOPICAL PATCH TP SCH (09:44)
[2022-01-08] MEDS: QUEtiapine FUMARATE 400 MG TABLET PO SCH ×2 (10:55→21:14)
[2022-01-08] MEDS: THIAMINE HCL 100 MG TABLET (FP) PO SCH (21:14)
[2022-01-08] MEDS: IBUPROFEN 600 MG TABLET (FP) PO PRN (21:14)
[2022-01-08] MEDS: METHOCARBAMOL 500 MG TABLET PO SCH (21:14)
[2022-01-08] MEDS: LIDOCAINE PATCH REMOVAL MC SCH (21:15)
[2022-01-09] MEDS: NICOTINE POLACRILEX 4 MG GUM BUC PRN ×6 (06:08→21:30)
[2022-01-09] MEDS: NICOTINE 10 MG CARTRIDGE (INHALER) IH PRN ×3 (06:08→20:11)
[2022-01-09] MEDS: DOLUTEGRAVIR SODIUM 50 MG TABLET (NON-FORMULARY) PO SCH (07:01)
[2022-01-09] MEDS: PRENATAL VITAMINS W/ FOLIC ACID TABLET (FP) PO SCH (10:11)
[2022-01-09] MEDS: LIDOCAINE 5% TOPICAL PATCH TP SCH (10:11)
[2022-01-09] MEDS: CLOTRIMAZOLE 1% CREAM TP SCH ×2 (10:11→21:30)
[2022-01-09] MEDS: SULFAMETHOXAZOLE/TRIMETHOPRIM 800MG/160MG D.S. TABLET PO SCH (10:11)
[2022-01-09] MEDS: NICOTINE 21 MG/24 HOURS TOPICAL PATCH TD SCH (10:12)
[2022-01-09] MEDS: QUEtiapine FUMARATE 400 MG TABLET PO SCH ×2 (10:13→21:30)
[2022-01-09] MEDS: IBUPROFEN 600 MG TABLET (FP) PO PRN (10:14)
[2022-01-09] MEDS: ACETAMINOPHEN 325 MG TABLET (FP) PO PRN (14:58)
[2022-01-09] MEDS: LIDOCAINE PATCH REMOVAL MC SCH (21:28)
[2022-01-09] MEDS: THIAMINE HCL 100 MG TABLET (FP) PO SCH (21:30)
[2022-01-09] MEDS: METHOCARBAMOL 500 MG TABLET PO SCH (21:30)
[2022-01-10] MEDS: NICOTINE 10 MG CARTRIDGE (INHALER) IH PRN ×3 (06:09→19:44)
[2022-01-10] MEDS: NICOTINE POLACRILEX 4 MG GUM BUC PRN ×5 (06:11→21:06)
[2022-01-10] MEDS: DOLUTEGRAVIR SODIUM 50 MG TABLET (NON-FORMULARY) PO SCH (07:36)
[2022-01-10] MEDS: SULFAMETHOXAZOLE/TRIMETHOPRIM 800MG/160MG D.S. TABLET PO SCH (10:00)
[2022-01-10] MEDS: LIDOCAINE 5% TOPICAL PATCH TP SCH (10:01)
[2022-01-10] MEDS: NICOTINE 21 MG/24 HOURS TOPICAL PATCH TD SCH (10:01)
[2022-01-10] MEDS: PRENATAL VITAMINS W/ FOLIC ACID TABLET (FP) PO SCH (10:01)
[2022-01-10] MEDS: QUEtiapine FUMARATE 400 MG TABLET PO SCH ×2 (10:02→21:04)
[2022-01-10] MEDS: CLOTRIMAZOLE 1% CREAM TP SCH ×2 (10:02→21:04)
[2022-01-10] MEDS: THIAMINE HCL 100 MG TABLET (FP) PO SCH (21:04)
[2022-01-10] MEDS: METHOCARBAMOL 500 MG TABLET PO SCH (21:04)
[2022-01-10] MEDS: LIDOCAINE PATCH REMOVAL MC SCH (21:05)
[2022-01-11] MEDS: NICOTINE POLACRILEX 4 MG GUM BUC PRN ×5 (06:36→21:12)
[2022-01-11] MEDS: NICOTINE 10 MG CARTRIDGE (INHALER) IH PRN ×3 (06:36→21:11)
[2022-01-11] MEDS: DOLUTEGRAVIR SODIUM 50 MG TABLET (NON-FORMULARY) PO SCH (07:08)
[2022-01-11] MEDS: SULFAMETHOXAZOLE/TRIMETHOPRIM 800MG/160MG D.S. TABLET PO SCH (09:52)
[2022-01-11] MEDS: NICOTINE 21 MG/24 HOURS TOPICAL PATCH TD SCH (09:53)
[2022-01-11] MEDS: PRENATAL VITAMINS W/ FOLIC ACID TABLET (FP) PO SCH (09:53)
[2022-01-11] MEDS: CLOTRIMAZOLE 1% CREAM TP SCH ×2 (09:53→21:10)
[2022-01-11] MEDS: LIDOCAINE 5% TOPICAL PATCH TP SCH (09:53)
[2022-01-11] MEDS: QUEtiapine FUMARATE 400 MG TABLET PO SCH ×2 (09:54→21:11)
[2022-01-11] MEDS: IBUPROFEN 600 MG TABLET (FP) PO PRN ×2 (09:55→21:10)
[2022-01-11] MEDS: LIDOCAINE PATCH REMOVAL MC SCH (21:10)
[2022-01-11] MEDS: THIAMINE HCL 100 MG TABLET (FP) PO SCH (21:10)
[2022-01-11] MEDS: METHOCARBAMOL 500 MG TABLET PO SCH (21:11)
[2022-01-12] MEDS: NICOTINE POLACRILEX 4 MG GUM BUC PRN ×4 (06:08→15:13)
[2022-01-12] MEDS: NICOTINE 10 MG CARTRIDGE (INHALER) IH PRN ×2 (06:12→21:23)
[2022-01-12] MEDS: DOLUTEGRAVIR SODIUM 50 MG TABLET (NON-FORMULARY) PO SCH (07:00)
[2022-01-12] MEDS: SULFAMETHOXAZOLE/TRIMETHOPRIM 800MG/160MG D.S. TABLET PO SCH (09:30)
[2022-01-12] MEDS: CLOTRIMAZOLE 1% CREAM TP SCH ×2 (09:31→21:22)
[2022-01-12] MEDS: LIDOCAINE 5% TOPICAL PATCH TP SCH (09:31)
[2022-01-12] MEDS: PRENATAL VITAMINS W/ FOLIC ACID TABLET (FP) PO SCH (09:31)
[2022-01-12] MEDS: QUEtiapine FUMARATE 400 MG TABLET PO SCH ×2 (09:31→21:22)
[2022-01-12] MEDS: NICOTINE 21 MG/24 HOURS TOPICAL PATCH TD SCH (09:31)
[2022-01-12] MEDS: LOPERAMIDE HCL 2 MG CAPSULE PO PRN (10:56)
[2022-01-12] MEDS: IBUPROFEN 600 MG TABLET (FP) PO PRN (21:21)
[2022-01-12] MEDS: THIAMINE HCL 100 MG TABLET (FP) PO SCH (21:21)
[2022-01-12] MEDS: LIDOCAINE PATCH REMOVAL MC SCH (21:22)
[2022-01-12] MEDS: METHOCARBAMOL 500 MG TABLET PO SCH (21:22)
[2022-01-13] MEDS: NICOTINE POLACRILEX 4 MG GUM BUC PRN ×2 (06:35→10:22)
[2022-01-13] MEDS: NICOTINE 10 MG CARTRIDGE (INHALER) IH PRN ×2 (06:35→16:36)
[2022-01-13] MEDS: DOLUTEGRAVIR SODIUM 50 MG TABLET (NON-FORMULARY) PO SCH (07:05)
[2022-01-13] MEDS: SULFAMETHOXAZOLE/TRIMETHOPRIM 800MG/160MG D.S. TABLET PO SCH (10:20)
[2022-01-13] MEDS: QUEtiapine FUMARATE 400 MG TABLET PO SCH ×2 (10:20→21:09)
[2022-01-13] MEDS: NICOTINE 21 MG/24 HOURS TOPICAL PATCH TD SCH (10:21)
[2022-01-13] MEDS: LIDOCAINE 5% TOPICAL PATCH TP SCH (10:21)
[2022-01-13] MEDS: PRENATAL VITAMINS W/ FOLIC ACID TABLET (FP) PO SCH (10:22)
[2022-01-13] MEDS: IBUPROFEN 600 MG TABLET (FP) PO PRN ×2 (10:23→21:09)
[2022-01-13] MEDS: CLOTRIMAZOLE 1% CREAM TP SCH ×2 (10:49→21:43)
[2022-01-13] MEDS: METHOCARBAMOL 500 MG TABLET PO SCH (21:09)
[2022-01-13] MEDS: THIAMINE HCL 100 MG TABLET (FP) PO SCH (21:09)
[2022-01-13] MEDS: LIDOCAINE PATCH REMOVAL MC SCH (21:42)
[2022-01-14] MEDS: NICOTINE POLACRILEX 4 MG GUM BUC PRN ×4 (06:11→14:28)
[2022-01-14] MEDS: DOLUTEGRAVIR SODIUM 50 MG TABLET (NON-FORMULARY) PO SCH (07:02)
[2022-01-14] MEDS: QUEtiapine FUMARATE 400 MG TABLET PO SCH ×2 (09:39→21:14)
[2022-01-14] MEDS: NICOTINE 21 MG/24 HOURS TOPICAL PATCH TD SCH (09:39)
[2022-01-14] MEDS: SULFAMETHOXAZOLE/TRIMETHOPRIM 800MG/160MG D.S. TABLET PO SCH (09:39)
[2022-01-14] MEDS: LIDOCAINE 5% TOPICAL PATCH TP SCH (09:39)
[2022-01-14] MEDS: CLOTRIMAZOLE 1% CREAM TP SCH ×2 (09:40→21:14)
[2022-01-14] MEDS: NICOTINE 10 MG CARTRIDGE (INHALER) IH PRN (09:41)
[2022-01-14] MEDS: PRENATAL VITAMINS W/ FOLIC ACID TABLET (FP) PO SCH (11:09)
[2022-01-14] MEDS: LIDOCAINE PATCH REMOVAL MC SCH (21:14)
[2022-01-14] MEDS: THIAMINE HCL 100 MG TABLET (FP) PO SCH (21:14)
[2022-01-14] MEDS: IBUPROFEN 600 MG TABLET (FP) PO PRN (21:14)
[2022-01-14] MEDS: METHOCARBAMOL 500 MG TABLET PO SCH (21:15)
[2022-01-14] MEDS: LOPERAMIDE HCL 2 MG CAPSULE PO PRN (21:15)
[2022-01-15] MEDS: NICOTINE 10 MG CARTRIDGE (INHALER) IH PRN (06:21)
[2022-01-15] MEDS: NICOTINE POLACRILEX 4 MG GUM BUC PRN (06:22)
[2022-01-15] MEDS: DOLUTEGRAVIR SODIUM 50 MG TABLET (NON-FORMULARY) PO SCH (07:17)
[2022-01-15 08:14] VITALS: BP 138/91; PULSE 103; TEMP 98.2
[2022-01-15] MEDS: LIDOCAINE 5% TOPICAL PATCH TP SCH (09:24)
[2022-01-15] MEDS: SULFAMETHOXAZOLE/TRIMETHOPRIM 800MG/160MG D.S. TABLET PO SCH (09:24)
[2022-01-15] MEDS: NICOTINE 21 MG/24 HOURS TOPICAL PATCH TD SCH (09:25)
[2022-01-15] MEDS: QUEtiapine FUMARATE 400 MG TABLET PO SCH (09:25)
[2022-01-15] MEDS: CLOTRIMAZOLE 1% CREAM TP SCH (09:25)
[2022-01-15] MEDS: PRENATAL VITAMINS W/ FOLIC ACID TABLET (FP) PO SCH (09:25)
== END 2022-01-15 09:30 | disposition home or self-care (01) | DRG 895 ==
LOC: YASAS 09:41 → Y3N 12:04 → Y5N 12-22 13:13 → Y3E 12-22 13:21
PROVIDERS: ADMIT Allergy & Immunology; ATTEND Allergy & Immunology
PROC: HZ2ZZZZ Detoxification Services for Substance Abuse Treatment (ICD-10-PCS; 2021-12-18)
PROC: HZ42ZZZ Group Counseling for Substance Abuse Treatment, Cognitive-Behavioral (ICD-10-PCS; principal; 2021-12-23)
DX: F10.20 Alcohol dependence, uncomplicated (principal); F19.282 Other psychoactive substance dependence with psychoactive substance-induced sleep disorder; F20.1 Disorganized schizophrenia; F14.10 Cocaine abuse, uncomplicated; F17.210 Nicotine dependence, cigarettes, uncomplicated; F19.24 Other psychoactive substance dependence with psychoactive substance-induced mood disorder; Z21 Asymptomatic human immunodeficiency virus [HIV] infection status; M54.50 Low back pain, unspecified; Z62.810 Personal history of physical and sexual abuse in childhood; R63.4 Abnormal weight loss; Z68.26 Body mass index [BMI] 26.0-26.9, adult; Z86.010 Personal history of colon polyps; Z56.0 Unemployment, unspecified
CPT/HCPCS: 36415; 72100-TC-FY; 80053; 82947; 82962; 83036; 85027; 86359; 86360; 86780; C9803-CS; U0003; U0005

== ENCOUNTER 2022-10-15 06:38 | Inpatient (IN) | payer OTHER ==
[2022-10-15 08:58] VITALS: BMI 29.2
[2022-10-15] MEDS ORDERED: NALOXONE HCL (KLOXXADO) 8 MG SPRAY NS PRN (09:05)
[2022-10-15] MEDS ORDERED: BISMUTH SUBSALICYLATE 262 MG/15 ML BTL PO PRN (09:05)
[2022-10-15] MEDS ORDERED: DICYCLOMINE HCL 10 MG CAPSULE PO PRN (09:05)
[2022-10-15] MEDS ORDERED: LOPERAMIDE HCL 2 MG CAPSULE PO PRN (09:05)
[2022-10-15] MEDS ORDERED: IBUPROFEN 600 MG TABLET (FP) PO PRN (09:05)
[2022-10-15] MEDS ORDERED: MAG HYDROX/AL HYDROX/SIMETH 30 ML UNIT-DOSE CUP PO PRN (09:05)
[2022-10-15] MEDS ORDERED: ONDANSETRON *ODT* 4 MG TABLET SL PRN (09:05)
[2022-10-15] MEDS ORDERED: IBUPROFEN 400 MG TABLET (FP) PO PRN (09:05)
[2022-10-15] MEDS ORDERED: POLYETHYLENE GLYCOL (HEALTHYLAX) 3350 17 GM PACKET PO PRN (09:05)
[2022-10-15] MEDS ORDERED: chlordiazePOXIDE HCL 25 MG CAPSULE PO ONE (09:05)
[2022-10-15] MEDS ORDERED: MAGNESIUM HYDROX 2400MG/30ML ORAL SUSPENSION 30 ML CUP PO PRN (09:05)
[2022-10-15] MEDS ORDERED: chlordiazePOXIDE HCL 25 MG CAPSULE PO PRN (09:05)
[2022-10-15] MEDS ORDERED: hydrOXYzine PAMOATE 25 MG CAPSULE (FP) PO PRN (09:05)
[2022-10-15] MEDS ORDERED: BENZOCAINE/MENTHOL (CHLORASEPTIC ) LOZENGE MM PRN (09:05)
[2022-10-15] MEDS ORDERED: METHOCARBAMOL 500 MG TABLET PO PRN (09:05)
[2022-10-15] MEDS ORDERED: ACETAMINOPHEN 325 MG TABLET (FP) PO PRN ×2 (09:05)
[2022-10-15] MEDS ORDERED: PRENATAL VITAMINS W/ FOLIC ACID TABLET (FP) PO SCH (10:00)
[2022-10-15] MEDS ORDERED: PATIENT'S OWN MEDICATION (NON-FORMULARY) (Dolutegravir Sodium/Lamivudine [Dovato 50-300 Mg PO SCH ×2 (10:00)
[2022-10-15] MEDS ORDERED: DOLUTEGRAVIR SODIUM 50 MG TABLET (NON-FORMULARY) PO SCH (10:00)
[2022-10-15] MEDS ORDERED: LIPASE/PROTEASE/AMYLASE 36,000 UNIT CAPSULE PO SCH ×2 (10:00→15:56)
[2022-10-15] MEDS: NICOTINE POLACRILEX 4 MG GUM BUC PRN ×2 (13:01→17:56)
[2022-10-15] MEDS: NICOTINE 10 MG CARTRIDGE (INHALER) IH PRN (13:01)
[2022-10-15] MEDS: chlordiazePOXIDE HCL 25 MG CAPSULE PO SCH ×3 (13:05→21:59)
[2022-10-15 13:44] LABS: HEMATOCRIT 37.7 % (35.4-49); HEMOGLOBIN 12.2 GM/dL (11.7-16.9); MCH 29.7 pg (25.7-33.7); MCHC 32.4 g/dl (32.0-35.9); MEAN CELL VOLUME 91.8 fl (80-96); MEAN PLT VOLUME 8.7 fl (7.5-11.1); PLATELET COUNT 258 10^3/uL (134-434); RBC 4.11 M/mm3 (4.00-5.60); RDW 12.9 % (11.9-15.9); WHITE BLOOD COUNT 5.4 K/mm3 (4.0-10.0)
[2022-10-15 13:57] LABS: CALCIUM 8.9 mg/dL (8.5-10.1)
[2022-10-15 13:58] LABS: ALBUMIN 3.3 g/dl (3.4-5.0); BLOOD UREA NITROGEN 23.8 mg/dL (7-18)
[2022-10-15 14:01] LABS: BILIRUBIN,TOTAL 0.3 mg/dL (0.2-1); CREATININE 1.3 mg/dL (0.55-1.3)
[2022-10-15 14:02] LABS: TOT PROT 8.5 g/dl (6.4-8.2)
[2022-10-15] MEDS: THIAMINE HCL 100 MG TABLET (FP) PO SCH (21:49)
[2022-10-15] MEDS: QUEtiapine FUMARATE 200 MG TABLET PO SCH (21:49)
[2022-10-15] MEDS: MELATONIN 5 MG TABLETS PO SCH (21:49)
[2022-10-16] MEDS: chlordiazePOXIDE HCL 25 MG CAPSULE PO SCH ×4 (06:06→22:27)
[2022-10-16] MEDS: NICOTINE POLACRILEX 4 MG GUM BUC PRN ×4 (06:27→22:28)
[2022-10-16] MEDS ORDERED: LIPASE/PROTEASE/AMYLASE 36,000 UNIT CAPSULE PO SCH (08:00)
[2022-10-16] MEDS: DOLUTEGRAVIR SODIUM 50 MG TABLET (NON-FORMULARY) PO SCH (10:45)
[2022-10-16] MEDS: PRENATAL VITAMINS W/ FOLIC ACID TABLET (FP) PO SCH (10:45)
[2022-10-16] MEDS: LACTULOSE 20 GM/30 ML UDC (FOR ORAL USE ONLY) PO SCH ×2 (17:52→22:27)
[2022-10-16] MEDS: LIPASE/PROTEASE/AMYLASE 36,000 UNIT CAPSULE PO SCH (18:28)
[2022-10-16] MEDS: QUEtiapine FUMARATE 200 MG TABLET PO SCH (22:27)
[2022-10-16] MEDS: THIAMINE HCL 100 MG TABLET (FP) PO SCH (22:27)
[2022-10-16] MEDS: MELATONIN 5 MG TABLETS PO SCH (22:27)
[2022-10-17] MEDS: LIPASE/PROTEASE/AMYLASE 36,000 UNIT CAPSULE PO SCH ×3 (06:39→17:09)
[2022-10-17] MEDS: chlordiazePOXIDE HCL 25 MG CAPSULE PO SCH ×4 (06:40→22:33)
[2022-10-17] MEDS: PRENATAL VITAMINS W/ FOLIC ACID TABLET (FP) PO SCH (10:39)
[2022-10-17] MEDS: DOLUTEGRAVIR SODIUM 50 MG TABLET (NON-FORMULARY) PO SCH (10:39)
[2022-10-17] MEDS: NICOTINE POLACRILEX 4 MG GUM BUC PRN ×2 (10:39→17:12)
[2022-10-17] MEDS: NICOTINE 10 MG CARTRIDGE (INHALER) IH PRN (10:39)
[2022-10-17] MEDS: LACTULOSE 20 GM/30 ML UDC (FOR ORAL USE ONLY) PO SCH ×4 (10:42→22:32)
[2022-10-17] MEDS: QUEtiapine FUMARATE 200 MG TABLET PO SCH ×2 (10:42→22:33)
[2022-10-17] MEDS: MELATONIN 5 MG TABLETS PO SCH (22:32)
[2022-10-17] MEDS: THIAMINE HCL 100 MG TABLET (FP) PO SCH (22:33)
[2022-10-18] MEDS ORDERED: chlordiazePOXIDE HCL 10 MG CAPSULE PO PRN
[2022-10-18] MEDS: chlordiazePOXIDE HCL 10 MG CAPSULE PO SCH ×4 (06:10→22:39)
[2022-10-18] MEDS: LIPASE/PROTEASE/AMYLASE 36,000 UNIT CAPSULE PO SCH ×3 (06:51→17:28)
[2022-10-18] MEDS: DOLUTEGRAVIR SODIUM 50 MG TABLET (NON-FORMULARY) PO SCH (10:19)
[2022-10-18] MEDS: PRENATAL VITAMINS W/ FOLIC ACID TABLET (FP) PO SCH (10:19)
[2022-10-18] MEDS: QUEtiapine FUMARATE 200 MG TABLET PO SCH ×2 (10:20→22:28)
[2022-10-18] MEDS: LACTULOSE 20 GM/30 ML UDC (FOR ORAL USE ONLY) PO SCH ×4 (10:25→22:28)
[2022-10-18] MEDS: NICOTINE POLACRILEX 4 MG GUM BUC PRN ×4 (10:33→22:28)
[2022-10-18] MEDS: MELATONIN 5 MG TABLETS PO SCH (22:28)
[2022-10-18] MEDS: THIAMINE HCL 100 MG TABLET (FP) PO SCH (22:28)
[2022-10-19] MEDS ORDERED: chlordiazePOXIDE HCL 10 MG CAPSULE PO SCH (05:00)
[2022-10-19] MEDS: NICOTINE POLACRILEX 4 MG GUM BUC PRN (06:22)
[2022-10-19] MEDS: LIPASE/PROTEASE/AMYLASE 36,000 UNIT CAPSULE PO SCH ×2 (06:22→10:27)
[2022-10-19 06:29] VITALS: RESP 18
[2022-10-19 09:16] VITALS: BP 132/87; PULSE 103; TEMP 97.2
[2022-10-19] MEDS: LACTULOSE 20 GM/30 ML UDC (FOR ORAL USE ONLY) PO SCH (10:27)
[2022-10-19] MEDS: PRENATAL VITAMINS W/ FOLIC ACID TABLET (FP) PO SCH (10:27)
[2022-10-19] MEDS: DOLUTEGRAVIR SODIUM 50 MG TABLET (NON-FORMULARY) PO SCH (10:28)
[2022-10-19] MEDS: QUEtiapine FUMARATE 200 MG TABLET PO SCH (10:31)
[2022-10-20] MEDS ORDERED: chlordiazePOXIDE HCL 10 MG CAPSULE PO ONE (05:00)
== END 2022-10-19 10:51 | disposition home or self-care (01) | DRG 897 ==
LOC: YASAS 06:38 → Y3N 09:25 → Y6N 09:44 → Y3N 10:50 → Y6N 10:54 → Y3N 10:55
PROVIDERS: ADMIT Allergy & Immunology; ATTEND Family Medicine
PROC: HZ2ZZZZ Detoxification Services for Substance Abuse Treatment (ICD-10-PCS; principal; 2022-10-15)
DX: F10.230 Alcohol dependence with withdrawal, uncomplicated (principal); F19.282 Other psychoactive substance dependence with psychoactive substance-induced sleep disorder; F20.1 Disorganized schizophrenia; E72.20 Disorder of urea cycle metabolism, unspecified; B20 Human immunodeficiency virus [HIV] disease; F17.210 Nicotine dependence, cigarettes, uncomplicated; F32.A Depression, unspecified; F43.10 Post-traumatic stress disorder, unspecified; K64.9 Unspecified hemorrhoids; K86.81 Exocrine pancreatic insufficiency; Z20.822 Contact with and (suspected) exposure to COVID-19; Z62.810 Personal history of physical and sexual abuse in childhood; Z79.899 Other long term (current) drug therapy; Z88.8 Allergy status to other drugs, medicaments and biological substances
CPT/HCPCS: 36415; 80053; 82140; 82962; 85027; 86780; 87811; C9803-CS; U0003; U0005

== ENCOUNTER 2023-07-25 16:45 | Inpatient (IN) | payer OTHER ==
[2023-07-25 18:38] VITALS: BMI 26.2
[2023-07-25] MEDS ORDERED: POLYETHYLENE GLYCOL (HEALTHYLAX) 3350 17 GM PACKET PO PRN (20:31)
[2023-07-25] MEDS ORDERED: guaiFENesin 600 MG TABLET.ER (FP) PO PRN (20:31)
[2023-07-25] MEDS ORDERED: diazePAM 5 MG TABLET PO PRN (20:31)
[2023-07-25] MEDS ORDERED: MAG HYDROX/AL HYDROX/SIMETH 30 ML UNIT-DOSE CUP PO PRN (20:31)
[2023-07-25] MEDS ORDERED: BENZONATATE 200 MG CAPSULE PO PRN (20:31)
[2023-07-25] MEDS ORDERED: MAGNESIUM HYDROX 2400MG/30ML ORAL SUSPENSION 30 ML CUP PO PRN (20:31)
[2023-07-25] MEDS ORDERED: ACETAMINOPHEN 325 MG TABLET (FP) PO PRN (20:31)
[2023-07-25] MEDS ORDERED: DICYCLOMINE HCL 10 MG CAPSULE PO PRN (20:31)
[2023-07-25] MEDS ORDERED: NALOXONE HCL 0.4 MG/ML VIAL IM PRN (20:31)
[2023-07-25] MEDS ORDERED: NALOXONE HCL (KLOXXADO) 8 MG SPRAY NS PRN (20:31)
[2023-07-25] MEDS ORDERED: BISMUTH SUBSALICYLATE 524 MG/30 ML PO PRN (20:31)
[2023-07-25] MEDS ORDERED: BENZOCAINE/MENTHOL (CHLORASEPTIC ) LOZENGE MM PRN (20:31)
[2023-07-25] MEDS ORDERED: IBUPROFEN 400 MG TABLET (FP) PO PRN (20:31)
[2023-07-25] MEDS ORDERED: ONDANSETRON *ODT* 4 MG TABLET SL PRN (20:31)
[2023-07-25] MEDS ORDERED: LOPERAMIDE HCL 2 MG CAPSULE PO PRN (20:31)
[2023-07-25] MEDS ORDERED: LIPASE/PROTEASE/AMYLASE 36,000 UNIT CAPSULE PO SCH (22:00)
[2023-07-25] MEDS ORDERED: MELATONIN 5 MG TABLETS PO SCH (22:00)
[2023-07-25] MEDS ORDERED: QUEtiapine FUMARATE 400 MG TABLET PO ONE (22:14)
[2023-07-25] MEDS: diazePAM 5 MG TABLET PO SCH (22:31)
[2023-07-25] MEDS: THIAMINE HCL 100 MG TABLET (FP) PO SCH (22:32)
[2023-07-25] MEDS: NICOTINE POLACRILEX 4 MG GUM BUC PRN (22:33)
[2023-07-26] MEDS: diazePAM 5 MG TABLET PO SCH ×4 (05:45→22:05)
[2023-07-26] MEDS: LIPASE/PROTEASE/AMYLASE 36,000 UNIT CAPSULE PO SCH ×4 (08:20→22:05)
[2023-07-26] MEDS: IBUPROFEN 600 MG TABLET (FP) PO PRN ×2 (08:22→18:00)
[2023-07-26] MEDS: NICOTINE POLACRILEX 4 MG GUM BUC PRN ×4 (08:23→22:09)
[2023-07-26] MEDS: QUEtiapine FUMARATE 400 MG TABLET PO SCH ×2 (10:24→22:05)
[2023-07-26] MEDS: NICOTINE 21 MG/24 HOURS TOPICAL PATCH TD SCH (10:24)
[2023-07-26] MEDS: PRENATAL VITAMINS W/ FOLIC ACID TABLET (FP) PO SCH (10:24)
[2023-07-26] MEDS ORDERED: PATIENT'S OWN MEDICATION (NON-FORMULARY) (Dolutegravir Sodium/Lamivudine [Dovato 50-300 Mg PO SCH (10:30)
[2023-07-26] MEDS: DOLUTEGRAVIR SODIUM 50 MG TABLET (NON-FORMULARY) PO SCH (11:43)
[2023-07-26 11:53] LABS: POTASSIUM 4.5 mmol/L (3.5-5.1)
[2023-07-26 11:54] LABS: HEMOGLOBIN 11.7 GM/dL (11.7-16.9); MCH 30.5 pg (25.7-33.7); MCHC 34.5 g/dl (32.0-35.9); MEAN CELL VOLUME 88.3 fl (80-96); MEAN PLT VOLUME 8.2 fl (7.5-11.1); PLATELET COUNT 262 10^3/uL (134-434); RBC 3.85 M/mm3 (4.00-5.60); WHITE BLOOD COUNT 4.5 K/mm3 (4.0-10.0)
[2023-07-26 12:06] LABS: CALCIUM 8.8 mg/dL (8.5-10.1)
[2023-07-26 12:07] LABS: ALBUMIN 3.1 g/dl (3.4-5.0); BLOOD UREA NITROGEN 19.2 mg/dL (7-18)
[2023-07-26 12:10] LABS: CREATININE 1.5 mg/dL (0.55-1.3)
[2023-07-26 12:11] LABS: BILIRUBIN,TOTAL 0.2 mg/dL (0.2-1)
[2023-07-26] MEDS: THIAMINE HCL 100 MG TABLET (FP) PO SCH (22:05)
[2023-07-27] MEDS: LIPASE/PROTEASE/AMYLASE 36,000 UNIT CAPSULE PO SCH ×4 (06:04→22:13)
[2023-07-27] MEDS: diazePAM 5 MG TABLET PO SCH ×3 (06:05→22:13)
[2023-07-27] MEDS: IBUPROFEN 600 MG TABLET (FP) PO PRN ×3 (06:08→22:14)
[2023-07-27] MEDS: DOLUTEGRAVIR SODIUM 50 MG TABLET (NON-FORMULARY) PO SCH (07:01)
[2023-07-27] MEDS: QUEtiapine FUMARATE 400 MG TABLET PO SCH ×2 (09:34→22:13)
[2023-07-27] MEDS: NICOTINE 21 MG/24 HOURS TOPICAL PATCH TD SCH (09:34)
[2023-07-27] MEDS: PRENATAL VITAMINS W/ FOLIC ACID TABLET (FP) PO SCH (09:34)
[2023-07-27] MEDS: NICOTINE POLACRILEX 4 MG GUM BUC PRN ×3 (09:36→16:56)
[2023-07-27] MEDS: THIAMINE HCL 100 MG TABLET (FP) PO SCH (22:13)
[2023-07-28] MEDS: diazePAM 5 MG TABLET PO SCH ×2 (05:26→17:22)
[2023-07-28] MEDS: DOLUTEGRAVIR SODIUM 50 MG TABLET (NON-FORMULARY) PO SCH (07:13)
[2023-07-28] MEDS: LIPASE/PROTEASE/AMYLASE 36,000 UNIT CAPSULE PO SCH ×4 (07:13→22:05)
[2023-07-28 08:33] LABS: EPI CELLS 2 /uL (0-25.1); HYALINE CASTS 0 /uL (0-3.1); PH,URINE 5.5 (5.0-8.0); URINE APPEARANCE CLEAR; URINE BACTERIA 0 /uL (0-1359); URINE BILIRUBIN NEGATIVE (NEGATIVE); URINE COLOR YELLOW; URINE GLUCOSE (UA) NEGATIVE (NEGATIVE); URINE KETONE NEGATIVE (NEGATIVE); URINE LEUK ESTERASE NEGATIVE (NEGATIVE); URINE NITRITE NEGATIVE (NEGATIVE); URINE PROTEIN 1+ (NEGATIVE); URINE RBC 1 /uL (0-23.9); URINE UROBILINOGEN 0.2 mg/dL (0.2-1.0); URINE WBC 1 /uL (0-25.8)
[2023-07-28] MEDS: PRENATAL VITAMINS W/ FOLIC ACID TABLET (FP) PO SCH (10:18)
[2023-07-28] MEDS: NICOTINE 21 MG/24 HOURS TOPICAL PATCH TD SCH (10:18)
[2023-07-28] MEDS: QUEtiapine FUMARATE 400 MG TABLET PO SCH ×2 (10:18→22:05)
[2023-07-28] MEDS: NICOTINE POLACRILEX 4 MG GUM BUC PRN ×5 (10:18→19:44)
[2023-07-28] MEDS: IBUPROFEN 600 MG TABLET (FP) PO PRN ×2 (10:21→22:06)
[2023-07-28] MEDS ORDERED: METHOCARBAMOL 500 MG TABLET PO ONE (12:00)
[2023-07-28] MEDS: THIAMINE HCL 100 MG TABLET (FP) PO SCH (22:05)
[2023-07-29] MEDS ORDERED: diazePAM 5 MG TABLET PO ONE (06:00)
[2023-07-29] MEDS: NICOTINE POLACRILEX 4 MG GUM BUC PRN ×2 (06:01→09:24)
[2023-07-29] MEDS: LIPASE/PROTEASE/AMYLASE 36,000 UNIT CAPSULE PO SCH ×2 (07:07→12:45)
[2023-07-29] MEDS: DOLUTEGRAVIR SODIUM 50 MG TABLET (NON-FORMULARY) PO SCH (07:09)
[2023-07-29 07:21] VITALS: RESP 18
[2023-07-29 09:43] VITALS: BP 142/94; PULSE 114; TEMP 98.4
[2023-07-29] MEDS: NICOTINE 21 MG/24 HOURS TOPICAL PATCH TD SCH (12:44)
[2023-07-29] MEDS: QUEtiapine FUMARATE 400 MG TABLET PO SCH (12:45)
[2023-07-29] MEDS: PRENATAL VITAMINS W/ FOLIC ACID TABLET (FP) PO SCH (12:45)
== END 2023-07-29 10:26 | disposition home or self-care (01) | DRG 897 ==
LOC: YASAS 16:45 → Y6N 21:58
PROVIDERS: ADMIT Allergy & Immunology; ATTEND Surgery
PROC: HZ2ZZZZ Detoxification Services for Substance Abuse Treatment (ICD-10-PCS; principal; 2023-07-25)
DX: F10.230 Alcohol dependence with withdrawal, uncomplicated (principal); F14.20 Cocaine dependence, uncomplicated; F19.282 Other psychoactive substance dependence with psychoactive substance-induced sleep disorder; F19.280 Other psychoactive substance dependence with psychoactive substance-induced anxiety disorder; F20.0 Paranoid schizophrenia; F17.210 Nicotine dependence, cigarettes, uncomplicated; F19.24 Other psychoactive substance dependence with psychoactive substance-induced mood disorder; F43.10 Post-traumatic stress disorder, unspecified; Z21 Asymptomatic human immunodeficiency virus [HIV] infection status; Z87.19 Personal history of other diseases of the digestive system; Z88.8 Allergy status to other drugs, medicaments and biological substances
CPT/HCPCS: 36415; 80053; 81003; 85027; 86780; 87635; 87811

== ENCOUNTER 2024-05-25 15:34 | Inpatient (IN) | payer OTHER ==
[2024-05-25 16:35] VITALS: BMI 26.4
[2024-05-25] MEDS ORDERED: guaiFENesin 600 MG TABLET.ER (FP) PO PRN (17:05)
[2024-05-25] MEDS ORDERED: IBUPROFEN 400 MG TABLET (FP) PO PRN (17:05)
[2024-05-25] MEDS ORDERED: IBUPROFEN 600 MG TABLET (FP) PO PRN (17:05)
[2024-05-25] MEDS ORDERED: DICYCLOMINE HCL 10 MG CAPSULE PO PRN (17:05)
[2024-05-25] MEDS ORDERED: MAGNESIUM HYDROX 2400MG/30ML ORAL SUSPENSION 30 ML CUP PO PRN (17:05)
[2024-05-25] MEDS ORDERED: MAG HYDROX/AL HYDROX/SIMETH 30 ML UNIT-DOSE CUP PO PRN (17:05)
[2024-05-25] MEDS ORDERED: BENZONATATE 200 MG CAPSULE PO PRN (17:05)
[2024-05-25] MEDS ORDERED: LOPERAMIDE HCL 2 MG CAPSULE PO PRN (17:05)
[2024-05-25] MEDS ORDERED: ACETAMINOPHEN 325 MG TABLET (FP) PO PRN (17:05)
[2024-05-25] MEDS ORDERED: ONDANSETRON *ODT* 4 MG TABLET SL PRN (17:05)
[2024-05-25] MEDS ORDERED: POLYETHYLENE GLYCOL (HEALTHYLAX) 3350 17 GM PACKET PO PRN (17:05)
[2024-05-25] MEDS ORDERED: BISMUTH SUBSALICYLATE 524 MG/30 ML PO PRN (17:05)
[2024-05-25] MEDS ORDERED: BENZOCAINE/MENTHOL (CHLORASEPTIC ) LOZENGE MM PRN (17:05)
[2024-05-25] MEDS ORDERED: propRANOLol HCL 10 MG TABLET PO ONE (17:20)
[2024-05-25] MEDS: propRANOLol HCL 10 MG TABLET PO ONE (18:32)
[2024-05-25] MEDS: NICOTINE POLACRILEX 2 MG GUM BUC PRN (19:42)
[2024-05-25] MEDS: THIAMINE 100 MG TABLET PO SCH (23:53)
[2024-05-25] MEDS: MELATONIN 5 MG TABLETS PO SCH (23:54)
[2024-05-26] MEDS: NICOTINE POLACRILEX 2 MG LOZENGE BC PRN (05:41)
[2024-05-26] MEDS: PRENATAL VITAMINS W/ FOLIC ACID TABLET (FP) PO SCH (10:47)
[2024-05-26] MEDS ORDERED: chlordiazePOXIDE HCL 25 MG CAPSULE PO PRN (11:58)
[2024-05-26] MEDS ORDERED: NICOTINE POLACRILEX 2 MG LOZENGE BC PRN (12:17)
[2024-05-26] MEDS: QUEtiapine FUMARATE 400 MG TABLET PO SCH (12:44)
[2024-05-26] MEDS: NICOTINE POLACRILEX 2 MG GUM BUC PRN (12:46)
[2024-05-26] MEDS: chlordiazePOXIDE HCL 25 MG CAPSULE PO SCH (16:53)
[2024-05-26] MEDS: METHOCARBAMOL 500 MG TABLET PO PRN (16:53)
[2024-05-26] MEDS ORDERED: AMYLASE PO SCH (18:45)
[2024-05-26] MEDS ORDERED: LIPASE PO SCH (18:45)
[2024-05-26] MEDS ORDERED: PROTEASE PO SCH (18:45)
[2024-05-26] MEDS: PROTEASE PO SCH (18:55)
[2024-05-26] MEDS: AMYLASE PO SCH (18:55)
[2024-05-26] MEDS: LIPASE PO SCH (18:55)
[2024-05-27] MEDS: chlordiazePOXIDE HCL 25 MG CAPSULE PO SCH (05:51)
[2024-05-27] MEDS: ALBUTEROL SO4 HFA INHALER IH PRN (17:30)
[2024-05-28] MEDS ORDERED: chlordiazePOXIDE HCL 10 MG CAPSULE PO PRN
[2024-05-28] MEDS: chlordiazePOXIDE HCL 10 MG CAPSULE PO SCH (06:15)
[2024-05-28 12:30] LABS: BASO % 1.1 % (0-2.0); EOS % 6.8 % (0-4.5); HEMATOCRIT 37.6 % (35.4-49); HEMOGLOBIN 12.6 GM/dL (11.7-16.9); LYMPH % 39.6 % (8-40); MCHC 33.5 g/dl (32.0-35.9); MEAN CELL VOLUME 89.4 fl (80-96); MONO % 9.7 % (3.8-10.2); NEUT % 42.8 % (42.8-82.8); PLATELET COUNT 265 10^3/uL (134-434); RDW 14.8 % (11.9-15.9); WHITE BLOOD COUNT 3.8 K/mm3 (4.0-10.0)
[2024-05-28 12:37] LABS: POTASSIUM 4.3 mmol/L (3.5-5.1)
[2024-05-28 12:39] LABS: CALCIUM 9.2 mg/dL (8.5-10.1)
[2024-05-28 12:40] LABS: ALBUMIN 2.7 g/dl (3.4-5.0); BLOOD UREA NITROGEN 12.4 mg/dL (7-18)
[2024-05-28 12:43] LABS: BILIRUBIN,DIRECT 0.1 mg/dL (0.0-0.2); CREATININE 1.1 mg/dL (0.55-1.3)
[2024-05-28 12:45] LABS: BILIRUBIN,TOTAL 0.3 mg/dL (0.2-1); TOT PROT 7.8 g/dl (6.4-8.2)
[2024-05-29] MEDS: chlordiazePOXIDE HCL 10 MG CAPSULE PO SCH (06:00)
[2024-05-29] MEDS ORDERED: LIPASE/PROTEASE/AMYLASE 36,000 UNIT CAPSULE PO SCH (12:00)
[2024-05-29] MEDS: LIPASE/PROTEASE/AMYLASE 36,000 UNIT CAPSULE PO SCH (17:20)
[2024-05-30] MEDS: chlordiazePOXIDE HCL 10 MG CAPSULE PO ONE (05:32)
[2024-05-30 09:29] VITALS: BP 104/74; PULSE 110; RESP 18; TEMP 97.3
== END 2024-05-30 11:52 | disposition home or self-care (01) | DRG 897 ==
LOC: YASAS 15:34 → Y6N 17:30
PROVIDERS: ADMIT Allergy & Immunology; ATTEND Family Medicine Addiction Medicine
PROC: HZ2ZZZZ Detoxification Services for Substance Abuse Treatment (ICD-10-PCS; principal; 2024-05-25)
DX: F10.230 Alcohol dependence with withdrawal, uncomplicated (principal); F20.0 Paranoid schizophrenia; F20.1 Disorganized schizophrenia; F14.10 Cocaine abuse, uncomplicated; F17.210 Nicotine dependence, cigarettes, uncomplicated; F32.A Depression, unspecified; F43.10 Post-traumatic stress disorder, unspecified; Z21 Asymptomatic human immunodeficiency virus [HIV] infection status; K86.81 Exocrine pancreatic insufficiency; Z62.810 Personal history of physical and sexual abuse in childhood; Z88.8 Allergy status to other drugs, medicaments and biological substances
CPT/HCPCS: 36415; 80053; 80076; 80305; 80307; 85025; 86780